=== PATIENT | female | born 1990 | race Caucasian/White ===

== ENCOUNTER 2022-11-17 17:37 | Emergency (ER) | payer MEDICAID, SELFPAY ==
--- NOTE | ~2022-11-17 | XR_ITS ---
EXAMINATION: XR SHOULDER, LEFT CLINICAL INFORMATION: Left shoulder pain COMPARISON: None available. TECHNIQUE: Left shoulder 4 views. AP external rotation, Grashey, scapular Y, and axillary views of the left shoulder. FINDINGS: The bones and soft tissues are normal. No fracture. Glenohumeral and acromioclavicular alignment is anatomic with normal joint space. No abnormal soft tissue calcifications. XR/XR shoulder LT min 2V IMPRESSION: Unremarkable left shoulder radiographs.
--- NOTE | ~2022-11-17 | XR_ITS ---
EXAMINATION: XR CHEST CLINICAL INFORMATION: Chest pain COMPARISON: None available. TECHNIQUE: 2 views of the chest were obtained. FINDINGS: No significant abnormality is noted involving the heart, lungs, mediastinum, bony thorax or soft tissues. Surgical clips are noted in the upper abdomen on the lateral view. XR/XR chest 2V IMPRESSION: No acute pulmonary process.
--- NOTE | 2022-11-17 18:03 | ED.GENADULT ---
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 She reports her pain started 3 days ago. She denies any specific injury. Patient does admit that she has been moving so has been lifting numerous heavy boxes Denies any associated shortness of breath, palpitations, cough. She denies any personal history of cardiac disease She states her pain is a 7/10 and improved with ibuprofen Related Data Previous Rx's Medication Instructions Recorded cyclobenzaprine 10 mg tablet 10 mg PO TID PRN muscle spasm #14 11/17/22 tabs Allergies Allergy/AdvReac Type Severity Reaction Status Date / Time No Known Allergies Allergy Verified 11/17/22 18:10 Review of Systems Constitutional: Constitutional: Reports as per HPI, Denies chills, Denies fatigue, Denies fever(s) and Denies headache(s) ENT: Denies headache(s) Cardiovascular: Cardiovascular: Reports chest pain and Denies dyspnea Respiratory: Respiratory: Denies cough and Denies dyspnea Gastrointestinal: Gastrointestinal: Denies abdominal pain, Denies constipation, Reports nausea and Denies vomiting Genitourinary: Genitourinary: Denies dysuria Musculoskeletal: Musculoskeletal: Reports arthralgias, Denies joint swelling and Denies limited range of motion Neurologic: Denies headache(s) and Denies focal weakness Endocrine: Endocrine: Denies fatigue PMFSH Social History Social History Alcohol intake: never Smoked in Last 30 Days: No Use of substances other than those prescribed or required for medical reasons: No Advance Directives: No Advance Directives Information Provided: No Physical Exam ED Vital Signs: Vital Signs - 24 hr 11/17/22 18:10 11/17/22 19:04 Temperature 97.5 F 99 F Pulse Rate 98 85 Respiratory Rate 18 18 Blood Pressure 144/94 H 114/71 Pulse Oximetry 97 98 Oxygen Delivery Method Room Air BMI result Body Mass Index 38.8 Const General: healthy appearing, comfortable, no acute distress, alert and awake Nutritional Appearance: well nourished Orientation/consciousness: patient oriented x3 HENMT Head: Yes normocephalic and Yes atraumatic Eyes Eyelids: Yes eyelids normal Conjunctivae: conjunctivae normal Sclerae: sclerae normal Corneas: corneas normal Pupils: Equal, round and reactive pupils present EOM: EOMs intact bilaterally Neck Neck: Yes full ROM Chest Chest palpation & inspection: normal inspection of the chest and normal palpation of entire chest wall Resp Effort & Inspection: normal respiratory effort, able to speak in complete sentences and not labored Cardio Rate: regular rate Rhythm: regular rhythm Skin General skin exam: no rashes or lesions noted and elasticity normal Neuro General: patient oriented x3 Cranial nerves: Yes Equal, round and reactive pupils present and Yes Bilaterally intact EOM present Cognition (Neuro): normal cognition Extrem Other: Moving all extremities well without any obvious deformities. Minimal tenderness in the left acromioclavicular joint Course Course Course Narrative: RME performed by Renea Finney PA-C. Patient is a 32 year old assigned female at presenting to the emergency department with left shoulder pain and nausea. Labs ordered. Patient placed back in the waiting room pending room availability and results. Reevaluation(s) Reevaluation #1: Patient's cardiac workup unremarkable. She had a negative troponin despite 3 days of pain. Chest x-ray and x-ray of the left shoulder without acute findings. Will discharge the patient with cyclobenzaprine Medical Decision Making Medical Decision Making [facility] Narrative: 32-year-old female with no risk factors for ACS presents for evaluation of chest pain and shoulder pain. Her pain started after moving heavy boxes. History exam is most consistent musculoskeletal origin. Will get labs, EKG, chest x-ray, x-ray the shoulder. The patient mention nursing staff that she has not had a menstrual cycle in over a month, a serum HCG was added on as well. Differential Diagnosis Chest pain Chest wall pain Costochondritis Calcific tendinitis ACS less likely Lab Data [facility] Lab Attestation statement: I reviewed the patient's lab results. 11/17/22 18:28 11/17/22 18:27 Labs: Lab Results 11/17/22 11/17/22 11/17/22 Range/Units 18:27 18:27 18:28 WBC 11.0 H (4.8-10.8) X10*3/uL RBC 5.27 (4.20-5.50) X10*6/uL Hgb 11.6 L (12.0-16.0) g/dl Hct 37.9 (37.0-47.0) % MCV 71.9 L (80.0-98.0) fL MCH 22.0 L (27.0-33.0) pg MCHC 30.6 L (31.0-35.0) g/dl RDW 18.5 H (11.0-16.0) % Plt Count 353 (160-400) X10*3/uL MPV 9.9 (9.4-12.3) fL Immature Gran % (Auto) 0.3 (0.0-0.4) % Neut % (Auto) 69.0 (45-73) % Lymph % (Auto) 22.7 (20-40) % [place] % (Auto) 6.8 (2-11) % Eos % (Auto) 1.0 (0-4) % Baso % (Auto) 0.2 (0-2) % Lymph # (Auto) 2.5 (1.2-4.9) X10*3/uL [place] # (Auto) 0.8 (0.1-1.2) X10*3/uL Eos # (Auto) 0.1 (0.0-0.4) X10*3/uL Baso # (Auto) 0.0 (0.0-0.2) X10*3/uL Abs Immat Gran (auto) 0.03 (0.00-0.03) X10*3/uL Absolute Neuts (auto) 7.6 (2.0-8.3) x10*3/uL Absolute Nucleated RBC 0.000 (0.0-0.012) X10*3/uL Nucleated RBC % (auto) 0.0 (0.0-0.2) /100WBC Sodium 143 (135-145) mmol/L Potassium 4.0 (3.3-5.1) mmol/L Chloride 106 (96-108) mmol/L Carbon Dioxide 28 (22-29) mmol/L Anion Gap 13 (12-20) BUN 11 (9-16) mg/dL Creatinine 0.76 (0.5-1.4) mg/dL Estim Creat Clear Calc 121.6 Estimated GFR > 60 Random Glucose 90 (60-115) mg/dL Calcium 9.4 (8.4-10.2) mg/dL Magnesium 1.8 (1.6-2.6) mg/dL Total Bilirubin 0.3 (0.0-1.0) mg/dL AST 14 (5-31) U/L ALT 12 (0-31) U/L Alkaline Phosphatase 70 (39-117) U/L Troponin I High Sens (<3.5-17.0) ng/L B-Natriuretic Peptide (<100) pg/mL Total Protein 7.5 (6.5-8.0) g/dL Albumin 4.2 (3.5-5.0) g/dL Beta HCG, Quant < 2 mIU/mL Urine Color Urine Appearance Urine pH (5.0-9.0) Ur Specific [place] (1.005-1.025) Urine Protein (Neg-Trace) mg/dL Urine Glucose (UA) (Negative) mg/dL Urine Ketones (Negative) mg/dL Urine Blood (Negative) Urine Nitrite (Negative) Ur Leukocyte Esterase (Negative) Urine RBC (0-2) /HPF Urine WBC (0-5) /HPF Ur Squamous Epith Cells (0-2) /HPF Urine Bacteria (None Seen) Hyaline Casts (0-2) /LPF 11/17/22 11/17/22 11/17/22 Range/Units 18:28 18:28 18:47 WBC (4.8-10.8) X10*3/uL RBC (4.20-5.50) X10*6/uL Hgb (12.0-16.0) g/dl Hct (37.0-47.0) % MCV (80.0-98.0) fL MCH (27.0-33.0) pg MCHC (31.0-35.0) g/dl RDW (11.0-16.0) % Plt Count (160-400) X10*3/uL MPV (9.4-12.3) fL Immature Gran % (Auto) (0.0-0.4) % Neut % (Auto) (45-73) % Lymph % (Auto) (20-40) % [place] % (Auto) (2-11) % Eos % (Auto) (0-4) % Baso % (Auto) (0-2) % Lymph # (Auto) (1.2-4.9) X10*3/uL [place] # (Auto) (0.1-1.2) X10*3/uL Eos # (Auto) (0.0-0.4) X10*3/uL Baso # (Auto) (0.0-0.2) X10*3/uL Abs Immat Gran (auto) (0.00-0.03) X10*3/uL Absolute Neuts (auto) (2.0-8.3) x10*3/uL Absolute Nucleated RBC (0.0-0.012) X10*3/uL Nucleated RBC % (auto) (0.0-0.2) /100WBC Sodium (135-145) mmol/L Potassium (3.3-5.1) mmol/L Chloride (96-108) mmol/L Carbon Dioxide (22-29) mmol/L Anion Gap (12-20) BUN (9-16) mg/dL Creatinine (0.5-1.4) mg/dL Estim Creat Clear Calc Estimated GFR Random Glucose (60-115) mg/dL Calcium (8.4-10.2) mg/dL Magnesium (1.6-2.6) mg/dL Total Bilirubin (0.0-1.0) mg/dL AST (5-31) U/L ALT (0-31) U/L Alkaline Phosphatase (39-117) U/L Troponin I High Sens < 2.7 (<3.5-17.0) ng/L B-Natriuretic Peptide 18 (<100) pg/mL Total Protein (6.5-8.0) g/dL Albumin (3.5-5.0) g/dL Beta HCG, Quant mIU/mL Urine Color Yellow Urine Appearance Clear Urine pH >= 9.0 (5.0-9.0) Ur Specific [place] 1.025 (1.005-1.025) Urine Protein Trace (Neg-Trace) mg/dL Urine Glucose (UA) Negative (Negative) mg/dL Urine Ketones Trace (Negative) mg/dL Urine Blood Negative (Negative) Urine Nitrite Negative (Negative) Ur Leukocyte Esterase Moderate (2+) H (Negative) Urine RBC 0-2 (0-2) /HPF Urine WBC 21-50 H (0-5) /HPF Ur Squamous Epith Cells 0-2 (0-2) /HPF Urine Bacteria None Seen (None Seen) Hyaline Casts 0-2 (0-2) /LPF Independent Interpretation I performed an independent interpretation of an: Plain X-Ray (Non arthritic left shoulder x-ray) Radiology Impression Discussion of test interpretation with radiology: I have reviewed the radiologist's reading. Discharge Plan Discharge Clinical Impression: Acute pain of left shoulder Patient Disposition: Home, Self-Care Instructions: Shoulder Pain (ED) Additional Instructions: You may continue using ibuprofen for your pain. You may also use cyclobenzaprine to help with pain and muscle spasms This may make you sleepy, do not drink alcohol or drive after taking it Follow-up with your primary doctor Prescriptions: New cyclobenzaprine 10 mg tablet 10 mg PO TID PRN (Reason: muscle spasm) Qty: 14 0RF
[2022-11-17 18:10] VITALS: BP 144/94; PULSE 98; RESP 18; TEMP 36.4; O2SAT 97; BMI 38.8
--- NOTE | 2022-11-17 18:12 | ECG_ITS ---
Test Reason : L SHOULDER+CP Blood Pressure : / mmHG Vent. Rate : 085 BPM Atrial Rate : 085 BPM P-R Int : 116 ms QRS Dur : 078 ms QT Int : 348 ms P-R-T Axes : 048 032 000 degrees QTc Int : 414 ms Normal sinus rhythm Nonspecific T wave abnormality Abnormal ECG No previous ECGs available Referred By: Renea Finney Electronically Signed By:SACHA BREEN MD
[2022-11-17 18:33] LABS: MANUAL DIFF FLAG NO
[2022-11-17 18:34] LABS: Basophils Percent Auto 0.2 % (0-2); Eosinophils Absolute Auto 0.1 X10*3/uL (0.0-0.4); Hematocrit 37.9 % (37.0-47.0); Hemoglobin 11.6 g/dl (12.0-16.0); Imm Gran Abs Auto 0.03 X10*3/uL (0.00-0.03); Imm Gran Pct Auto 0.3 % (0.0-0.4); Lymphocytes Absolute Auto 2.5 X10*3/uL (1.2-4.9); Lymphocytes Percent Auto 22.7 % (20-40); Mean Corpuscular HGB Conc 30.6 g/dl (31.0-35.0); Mean Corpuscular Volume 71.9 fL (80.0-98.0); Mean Platelet Volume 9.9 fL (9.4-12.3); Monocytes Absolute Auto 0.8 X10*3/uL (0.1-1.2); Monocytes Percent Auto 6.8 % (2-11); Neutrophils Absolute Auto 7.6 x10*3/uL (2.0-8.3); Platelet Count 353 X10*3/uL (160-400); Red Blood Count 5.27 X10*6/uL (4.20-5.50); Red Cell Distribution Width 18.5 % (11.0-16.0)
--- NOTE | 2022-11-17 18:42 | PC.NURSE ---
Alert and oriented, mostly bolivian speaking. states x3 left sided chest pain that extended to her entire back. Denies injury or trauma but states she has been moving from one home to another. Also states she has not gotten her period in a few months. Denies chest pain or sob.
[2022-11-17 18:59] LABS: Alanine Aminotransferase 12 U/L (0-31); Albumin Level 4.2 g/dL (3.5-5.0); Alkaline Phosphatase 70 U/L (39-117); Anion Gap 13 (12-20); Aspartate Amino Transferase 14 U/L (5-31); Bilirubin Total 0.3 mg/dL (0.0-1.0); Blood Urea Nitrogen 11 mg/dL (9-16); Calcium 9.4 mg/dL (8.4-10.2); Carbon Dioxide 28 mmol/L (22-29); Chloride 106 mmol/L (96-108); Creatinine Clr Calc Pharmacy 121.6; Estimated Glomerular Filt Rate > 60; Glucose Random 90 mg/dL (60-115); Magnesium 1.8 mg/dL (1.6-2.6); Sodium 143 mmol/L (135-145); Total Protein 7.5 g/dL (6.5-8.0)
[2022-11-17 19:04] VITALS: BP 114/71; PULSE 85; RESP 18; TEMP 37.2; O2SAT 98
[2022-11-17 19:06] LABS: B Type Natriuretic Peptide 18 pg/mL (<100)
[2022-11-17 19:17] LABS: Appearance Urine Clear; Color Urine Yellow; Glucose Urine UA Negative (Negative); Leukocyte Esterase Urine Moderate (2+) (Negative); Nitrite Urine Negative (Negative); PH >= 9.0 (5.0-9.0); Specific Gravity - Urine 1.025 (1.005-1.025); UMIC TRIGGER UACC YES; Urine Blood Negative (Negative); Urine Ketones Trace mg/dL (Negative); Urine Protein Trace mg/dL (Neg-Trace)
[2022-11-17 19:19] LABS: Troponin-I High Sensitivity < 2.7 ng/L (<3.5-17.0)
[2022-11-17 19:19] LABS: HCG Quantitative < 2 mIU/mL
[2022-11-17 20:18] LABS: Bacteria Urine None Seen (None Seen); Hyaline Casts Urine 0-2 /LPF (0-2); Squamous Epithelial Cell Urine 0-2 /HPF (0-2); UACC Culture Trigger YES; WBC Urine 21-50 /HPF (0-5)
[2022-11-17 20:19] LABS: RBC Urine 0-2 /HPF (0-2)
== END 2022-11-17 21:05 | disposition home or self-care (01) ==
PROVIDERS: Physician Assistant Medical; Emergency Provider Emergency Medicine
DX: M25.512 Pain in left shoulder (principal)
CPT/HCPCS: 36415; 71046; 73030; 80053; 81001; 81003; 83735; 83880; 84484; 84702; 85025; 87086; 93005; 99283; 99284

== ENCOUNTER 2023-07-28 11:45 | Emergency (ER) | payer MEDICAID, SELFPAY ==
--- NOTE | 2023-07-28 | ECG_ITS ---
Test Reason : CP Blood Pressure : / mmHG Vent. Rate : 077 BPM Atrial Rate : 077 BPM P-R Int : 132 ms QRS Dur : 090 ms QT Int : 360 ms P-R-T Axes : 038 027 -02 degrees QTc Int : 407 ms Normal sinus rhythm Nonspecific T wave abnormality Abnormal ECG When compared with ECG of 17-NOV-2022 18:18, No significant change was found Referred By: Generic ED Physician Electronically Signed By:Donnell Kilpatrick
--- NOTE | ~2023-07-28 | XR_ITS ---
EXAMINATION: XR CHEST CLINICAL INFORMATION: Left-sided chest pain COMPARISON: None available. TECHNIQUE: Frontal view of the chest was obtained. FINDINGS: No significant abnormality is noted involving the heart, lungs, mediastinum, bony thorax or soft tissues. XR/XR chest 1V IMPRESSION: Unremarkable chest examination.
[2023-07-28 11:54] VITALS: BP 141/82; PULSE 89; RESP 16; TEMP 36.6; O2SAT 97; BMI 41.2
--- NOTE | 2023-07-28 12:03 | ED_ITS ---
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 States pain has been present for 2 days and is worse with movement, reports limited range of motion. She denies any weakness, numbness or tingling to her left arm. Has used [id number] medications with little relief. 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 Seen here for similar complaint in November of 2022. She is not on oral contraceptives. Denies cough or hemoptysis. Denies recent calf pain or swelling. Denies personal or family history of PE/DVT. MD complaint: other (left shoulder pain) Onset (ago): day(s) Timing of current episode: constant Prior episodes: Yes Pain location: left chest Pain radiation: left arm and left shoulder Severity: severe Quality: aching Relieving factors: nothing Exacerbating factors: movement Related Data Previous Rx's Medication Instructions Recorded cyclobenzaprine 10 mg tablet 10 mg PO TID PRN muscle spasm #14 11/17/22 tabs cyclobenzaprine 5 mg tablet 5 mg PO TID PRN muscle spasm #10 07/28/23 tabs diclofenac sodium 1 % topical gel 2 g topical QID #100 grams 07/28/23 Allergies Allergy/AdvReac Type Severity Reaction Status Date / Time No Known Allergies Allergy Verified 07/28/23 11:54 Review of Systems 2 Review of Systems: As per HPI. Yes all other systems are reviewed and are negative Constitutional: Constitutional: Reports as per HPI [facility] Social History Social History Alcohol intake: never Advance Directives: No Advance Directives Information Provided: No Physical Exam 2 Vital Signs: Vital Signs: Last Vital Signs Temp 97.8 F 07/28/23 11:54 Pulse 89 07/28/23 11:54 Resp 16 07/28/23 11:54 BP 141/82 H 07/28/23 11:54 Pulse Ox 97 07/28/23 11:54 O2 Del Method Room Air 07/28/23 11:54 BMI result Body Mass Index 41.2 Vital signs have been reviewed and appear to be correct. Blood pressure normal. Heart rate normal. Respiratory rate normal. Temperature normal. Oxygen saturation normal. Const: General: cooperative, healthy appearing and no acute distress O rientation/consciousness: oriented to person, oriented to place, oriented to time and patient oriented x3 Limitations: no limitations HEENT: Head: Yes normocephalic and Yes atraumatic Ears: external ears normal General nose exam: Normal external nose present Face and sinus: Yes face symmetric Mouth: oropharynx normal and moist mucous membranes Throat: Yes uvula midline Eyes: Pupils: Equal, round and reactive pupils present Neck: Neck: Yes normal visual inspection and Yes supple Resp: Effort & Inspection: normal respiratory effort and able to speak in complete sentences Auscultation: clear to auscultation bilaterally Cardio: Rate: regular rate Rhythm: regular rhythm Heart sounds: S1 normal heart sound present and S2 normal heart sound present GI: Palpation (GI): Soft to palpation and nontender Auscultation: n ormoactive bowel sounds : General: Yes no CVA tenderness Back/Spine/Pelvis: Back: no CVA tenderness Cervical Spine: normal cervical lordosis, cervical ROM normal, cervical muscular tenderness (left lateral), No Cervical spine tenderness and No step off deformity Skin: General skin exam: elasticity normal and turgor normal Neuro: General: oriented to person, oriented to place, oriented to time, patient oriented x3, moves all extremities, no focal motor deficits and CN's II- XI intact bilaterally Cranial nerves: Yes Equal, round and reactive pupils present Cognition (Neuro): normal cognition Extrem: General: Yes full ROM, Yes no pedal edema and Yes no calf tenderness Left upper extremity: shoulder/upper arm Details: inspection abnormal, axillary nerve sensory function normal and abnormal ROM Details: pain with active ROM Details: in ABduction and external rotation-; no tenderness and hand Details: vascular exam Details: radial pulse present and normal capillary refill Psych: Mental Status: mental status grossly normal Affect: normal affect Thought process: Normal thought process present Course Course Course Narrative: RME; 32 old female presents to ED for left-sided chest pain radiating to shoulder that is worse on movement for the past 2 days. Patient denies any shortness of breath, leg swelling, calf pain, coughing up blood, EKG labs chest x-ray ordered. Medical Decision Making Medical Decision Making [facility] Narrative: Patient is a 32-year-old [place]wanan-speaking female presenting to the emergency department with complaint of left shoulder pain which begins on left anterior chest and radiates up and over shoulder to upper back. On exam patient is awake, A+Ox3, VS WNL, afebrile, normal neurological exam without focal deficits, physical exam findings as above. Given reported symptoms and physical exam findings, initial differential includes shoulder strain, cervical radiculopathy. Less likely ACS. Unlikely PE, Wells negative. Labs notable for negative troponin, labs otherwise unremarkable. EKG shows NSR. X-ray chest shows no evidence of pneumonia. My interpretation is in agreement with the radiologist's interpretation. Given reproducible nature and increased pain with movement, feel pain is musculoskeletal, will prescribe cyclobenzaprine and diclofenac gel, advised patient to follow-up with her PCP given that this is her 2nd episode of similar symptoms she may require physical therapy. Return precautions discussed at bedside. Patient verbalized understanding of and agreement with plan. Differential Diagnosis Differential Diagnoses: The differential diagnosis associated with the presentation includes As per MDM. Admission/Observation Consideration of admission/observation: Escalation of care including admission/observation considered Lab Data [facility] Lab Attestation statement: I reviewed the patient's lab results. As per MDM. 07/28/23 12:11 07/28/23 12:11 Labs: Lab Results 07/28/23 Range/Units 12:11 WBC 8.4 (4.8-10.8) X10*3/uL RBC 5.14 (4.20-5.50) X10*6/uL Hgb 13.0 (12.0-16.0) g/dl Hct 40.3 (37.0-47.0) % MCV 78.4 L (80.0-98.0) fL MCH 25.3 L (27.0-33.0) pg MCHC 32.3 (31.0-35.0) g/dl RDW 13.4 (11.0-16.0) % Plt Count 299 (160-400) X10*3/uL MPV 9.9 (9.4-12.3) fL Immature Gran % (Auto) 0.4 (0.0-0.4) % Neut % (Auto) 68.1 (45-73) % Lymph % (Auto) 25.2 (20-40) % [place] % (Auto) 5.4 (2-11) % Eos % (Auto) 0.7 (0-4) % Baso % (Auto) 0.2 (0-2) % Lymph # (Auto) 2.1 (1.2-4.9) X10*3/uL [place] # (Auto) 0.5 (0.1-1.2) X10*3/uL Eos # (Auto) 0.1 (0.0-0.4) X10*3/uL Baso # (Auto) 0.0 (0.0-0.2) X10*3/uL Abs Immat Gran (auto) 0.03 (0.00-0.03) X10*3/uL Absolute Neuts (auto) 5.7 (2.0-8.3) x10*3/uL Absolute Nucleated RBC 0.000 (0.0-0.012) X10*3/uL Nucleated RBC % (auto) 0.0 (0.0-0.2) /100WBC PT 12.0 (11.1-13.3) SEC INR 1.0 (0.9-1.1) APTT 34.3 (26.0-36.8) SEC Sodium 142 (135-145) mmol/L Potassium 3.8 (3.3-5.1) mmol/L Chloride 105 (96-108) mmol/L Carbon Dioxide 27 (22-29) mmol/L Anion Gap 14 (12-20) BUN 9 (9-16) mg/dL Creatinine 0.70 (0.5-1.4) mg/dL Estim Creat Clear Calc 141.6 Estimated GFR > 60 Random Glucose 103 (60-115) mg/dL Calcium 9.5 (8.4-10.2) mg/dL Total Bilirubin 0.4 (0.0-1.0) mg/dL AST 11 (5-31) U/L ALT 13 (0-31) U/L Alkaline Phosphatase 64 (39-117) U/L Troponin I High Sens < 2.7 (<3.5-17.0) ng/L B-Natriuretic Peptide 13 (<100) pg/mL Total Protein 7.5 (6.5-8.0) g/dL Albumin 4.2 (3.5-5.0) g/dL Independent Interpretation I performed an independent interpretation of an: EKG (normal sinus rhythm, rate 77bpm, normal PA interval and QTc, no change from prior) and Plain X-Ray Interpretation: No evidence of pneumonia on chest x-ray Radiology Impression Discussion of test interpretation with radiology: I have reviewed the radiologist's reading. Radiologist Impression: XR/XR chest 1V IMPRESSION: Unremarkable chest examination. External Record Review External record reviewed: Inpatient record, Office record and Outpatient record Prescription Management I considered prescription management with: Pain Medication Discharge Plan Discharge Clinical Impression: Left shoulder strain Patient Disposition: Home, Self-Care Instructions: Muscle Strain (DC) Additional Instructions: You were evaluated in the emergency department today for left shoulder pain which is likely musculoskeletal. You are being prescribed a muscle relaxer as well as a topical gel which you can use for your shoulder discomfort. Please use these medications as prescribed. Please follow-up with your primary care provider, as you may require physical therapy to improve her symptoms. Return to the emergency department if you develop new weakness, numbness, tingling to your arm, chest pain, shortness of breath, palpitations or any other concerning symptoms. Prescriptions: New cyclobenzaprine 5 mg tablet 5 mg PO TID PRN (Reason: muscle spasm) Qty: 10 0RF diclofenac sodium 1 % gel 2 g topical QID Qty: 100 0RF Rx Instructions: apply to left shoulder No Action cyclobenzaprine 10 mg tablet 10 mg PO TID PRN (Reason: muscle spasm) Qty: 14 0RF
[2023-07-28 12:15] LABS: MANUAL DIFF FLAG NO
[2023-07-28 12:16] LABS: Basophils Percent Auto 0.2 % (0-2); Eosinophils Absolute Auto 0.1 X10*3/uL (0.0-0.4); Eosinophils Percent Auto 0.7 % (0-4); Hematocrit 40.3 % (37.0-47.0); Imm Gran Abs Auto 0.03 X10*3/uL (0.00-0.03); Imm Gran Pct Auto 0.4 % (0.0-0.4); Lymphocytes Absolute Auto 2.1 X10*3/uL (1.2-4.9); Lymphocytes Percent Auto 25.2 % (20-40); Mean Corpuscular HGB Conc 32.3 g/dl (31.0-35.0); Mean Corpuscular Hemoglobin 25.3 pg (27.0-33.0); Mean Corpuscular Volume 78.4 fL (80.0-98.0); Mean Platelet Volume 9.9 fL (9.4-12.3); Monocytes Absolute Auto 0.5 X10*3/uL (0.1-1.2); Monocytes Percent Auto 5.4 % (2-11); Neutrophils Absolute Auto 5.7 x10*3/uL (2.0-8.3); Neutrophils Percent Auto 68.1 % (45-73); Platelet Count 299 X10*3/uL (160-400); Red Blood Count 5.14 X10*6/uL (4.20-5.50); Red Cell Distribution Width 13.4 % (11.0-16.0); White Blood Count 8.4 X10*3/uL (4.8-10.8)
[2023-07-28 12:25] LABS: Partial Thromboplastin Time 34.3 SEC (26.0-36.8)
[2023-07-28 12:30] LABS: Alanine Aminotransferase 13 U/L (0-31); Albumin Level 4.2 g/dL (3.5-5.0); Alkaline Phosphatase 64 U/L (39-117); Anion Gap 14 (12-20); Aspartate Amino Transferase 11 U/L (5-31); Bilirubin Total 0.4 mg/dL (0.0-1.0); Blood Urea Nitrogen 9 mg/dL (9-16); Calcium 9.5 mg/dL (8.4-10.2); Carbon Dioxide 27 mmol/L (22-29); Chloride 105 mmol/L (96-108); Creatinine Clr Calc Pharmacy 141.6; Estimated Glomerular Filt Rate > 60; Glucose Random 103 mg/dL (60-115); Potassium 3.8 mmol/L (3.3-5.1); Sodium 142 mmol/L (135-145); Total Protein 7.5 g/dL (6.5-8.0)
[2023-07-28 12:35] LABS: B Type Natriuretic Peptide 13 pg/mL (<100)
[2023-07-28 12:37] LABS: Troponin-I High Sensitivity < 2.7 ng/L (<3.5-17.0)
[2023-07-28 15:15] VITALS: BP 138/78; PULSE 82; RESP 16; TEMP 36.6; O2SAT 97
[2023-07-28] MEDS: Cyclobenzaprine HCl 10 MG TABLET PO (15:27)
--- NOTE | 2023-07-28 15:30 | PC.NURSE ---
pt a&ox3, c/o lt arm pain with movement, pt medicated per order and will discharge home with muscle relaxers
== END 2023-07-28 15:57 | disposition home or self-care (01) ==
PROVIDERS: Physician Assistant; Emergency Provider Emergency Medicine Emergency Medical Services
DX: S46.912A Strain of unspecified muscle, fascia and tendon at shoulder and upper arm level, left arm, initial encounter (principal); R07.89 Other chest pain; M25.512 Pain in left shoulder; M54.50 Low back pain, unspecified; X50.0XXA Overexertion from strenuous movement or load, initial encounter; Y93.9 Activity, unspecified; Y92.9 Unspecified place or not applicable; Y99.0 Civilian activity done for income or pay; Z79.899 Other long term (current) drug therapy
CPT/HCPCS: 36415; 71045; 80053; 83880; 84484; 85025; 85610; 85730; 93005; 99283; 99284

== ENCOUNTER → 2023-07-28 11:50 | Outpatient (BNV) | payer MEDICAID, SELFPAY | PROVIDERS: Emergency Provider Emergency Medicine Emergency Medical Services; Visit Provider Internal Medicine Cardiovascular Disease | DX: R94.31 Abnormal electrocardiogram [ECG] [EKG] (principal) | CPT/HCPCS: 93010 ==

== ENCOUNTER 2023-10-09 09:53 | Outpatient (REF) | payer SELFPAY ==
[2023-10-09 11:36] LABS: MANUAL DIFF FLAG NO
[2023-10-09 11:48] LABS: Basophils Percent Auto 0.3 % (0-2); Eosinophils Percent Auto 0.3 % (0-4); Hematocrit 41.8 % (37.0-47.0); Hemoglobin 13.3 g/dl (12.0-16.0); Imm Gran Abs Auto 0.05 X10*3/uL (0.00-0.03); Imm Gran Pct Auto 0.5 % (0.0-0.4); Lymphocytes Absolute Auto 1.8 X10*3/uL (1.2-4.9); Lymphocytes Percent Auto 18.6 % (20-40); Mean Corpuscular HGB Conc 31.8 g/dl (31.0-35.0); Mean Corpuscular Hemoglobin 25.7 pg (27.0-33.0); Mean Corpuscular Volume 80.7 fL (80.0-98.0); Mean Platelet Volume 10.7 fL (9.4-12.3); Monocytes Absolute Auto 0.6 X10*3/uL (0.1-1.2); Monocytes Percent Auto 6.1 % (2-11); Neutrophils Absolute Auto 7.3 x10*3/uL (2.0-8.3); Neutrophils Percent Auto 74.2 % (45-73); Platelet Count 292 X10*3/uL (160-400); Red Blood Count 5.18 X10*6/uL (4.20-5.50); Red Cell Distribution Width 13.4 % (11.0-16.0); White Blood Count 9.9 X10*3/uL (4.8-10.8)
[2023-10-11 21:09] LABS: C. trachomatis RNA TMA NOT DETECTED (NOT DETECTED); N. gonorrhoeae RNA TMA NOT DETECTED (NOT DETECTED)
== END 2023-10-09 09:54 | disposition home or self-care (01) ==
LOC: HO.HHCL 09:53
PROVIDERS: Visit Provider Internal Medicine Geriatric Medicine
DX: N93.8 Other specified abnormal uterine and vaginal bleeding (principal)
CPT/HCPCS: 36415; 81513; 84443; 85025; 87491; 87591

== ENCOUNTER 2023-11-18 15:59 | Outpatient (REF) | payer MEDICAID, SELFPAY ==
[2023-11-29 04:44] LABS: HPV mRNA E6/E7 rflx Not Detected (Not Detected)
[2023-11-30 10:54] LABS: C. trachomatis RNA TMA NOT DETECTED (NOT DETECTED); N. gonorrhoeae RNA TMA NOT DETECTED (NOT DETECTED)
[2023-11-30 12:28] LABS: Trichomonas (NAAT) NOT DETECTED (NOT DETECTED)
== END 2023-11-18 16:00 | disposition home or self-care (01) ==
LOC: HO.HHCLNP 15:59
PROVIDERS: Visit Provider Advanced Practice Midwife
DX: N93.9 Abnormal uterine and vaginal bleeding, unspecified (principal); Z12.4 Encounter for screening for malignant neoplasm of cervix; Z11.3 Encounter for screening for infections with a predominantly sexual mode of transmission
CPT/HCPCS: 87491; 87591; 87624; 87661; 88142

== ENCOUNTER 2023-12-12 11:11 | Outpatient (REF) | payer MEDICAID, SELFPAY ==
--- NOTE | ~2023-12-12 | US_ITS ---
EXAMINATION: ULTRASOUND PELVIC, COMPLETE CLINICAL INFORMATION: Abnormal uterine bleeding. COMPARISON: None. TECHNIQUE: Pelvic ultrasound was performed using transvaginal and transabdominal technique without spectral doppler. FINDINGS: Uterus is retroverted. The uterus is lobular. The uterus measures 9.1 x 6.5 x 6.8 cm. There is a 3.7 cm intramural fibroid in the right corpus/body. A regular homogeneous endometrium is identified measuring 1.0 cm in thickness. The right ovary is enlarged measuring 12.2 mL. String of pearls appearance. The left ovary is enlarged measuring 12.6 mL. String of pearls appearance. There is no pelvic free fluid. US/US pelvic and transvaginal IMPRESSION: 3.7 cm uterine fibroid. Enlarged ovaries with string of pearls appearance consistent with PCO morphology. Correlate clinically for PCOS.
== END 2023-12-12 11:12 | disposition home or self-care (01) ==
LOC: HO.US 11:11
PROVIDERS: Visit Provider Advanced Practice Midwife
DX: N93.9 Abnormal uterine and vaginal bleeding, unspecified (principal)
CPT/HCPCS: 76830; 76856

== ENCOUNTER 2024-01-06 09:00 | Outpatient (AMB) | payer MEDICAID, SELFPAY ==
--- NOTE | 2024-01-06 09:13 | MHC.OFFVIS ---
Vital Signs 01/06/24 09:18 Height 5 ft 4 in Weight 241 lb BMI 41.4 BP 130/82 Intake Visit Reasons: AUB Dog Obedience Instructor Required: Yes Dog Obedience Instructor Language: Risk Assessor Services: Dog Obedience Instructor Present (in person) Dog Obedience Instructor Name: Luisa Merritt Information Interpreted: non-clinical & clinical Certified Nurse Midwife: Certified Nurse Midwife Present (Luisa HUYNH) Accompanied by: Self / Same As Patient Allergies No Known Allergies Allergy (Verified 01/06/24 09:22) HPI Comments Details: Presenting with continuous abnormal uterine bleeding last 7 months associated with the recent weight gain of 35 lb and facial minimal hair growth. The following workup was done: Last few weeks H&H was 13.31/41.8, TSH within normal, GC/CT negative Last co testing in 12/08 was negative Last pelvic ultrasound done in 12/08 showed the following: Uterus is retroverted. The uterus is lobular. The uterus measures 9.1 x 6.5 x 6.8 cm. There is a 3.7 cm intramural fibroid in the right corpus/body. A regular homogeneous endometrium is identified measuring 1.0 cm in thickness. The right ovary is enlarged measuring 12.2 mL. String of pearls appearance. The left ovary is enlarged measuring 12.6 mL. String of pearls appearance. There is no pelvic free fluid. [facility] Medical History (Updated 01/06/24 @ 09:47 by Frank Medrano MD) Asthma Surgical History (Updated 01/06/24 @ 09:24 by Luisa Merritt CMA) Hx of cholecystectomy Family History (Updated 01/06/24 @ 09:26 by Luisa Merritt CMA) Father Asthma Mother Asthma Maternal Grandmother Diabetes HTN (hypertension) Maternal Grandfather Diabetes HTN (hypertension) Social History (System 10/10/23 @ 11:10 by Carrie Woods) Household Members: Children Housing: Apartment Alcohol intake: never Patient Tobacco Use Status: Never used Tobacco Current occupational status: unemployed Sexual orientation: Straight/Heterosexual Gender identity: Female Review of Systems Const All systems reviewed & are unremarkable except as noted in HPI and below Card Reports as per HPI Resp Reports as per HPI GI Reports as per HPI and Reports no additional complaints Reports as per HPI Physical Exam Vital Signs: BMI result Body Mass Index 41.4 Const General: cooperative, healthy appearing and comfortable Chest Chest palpation & inspection: normal inspection of the chest and normal palpation of entire chest wall Breast/axilla inspection: normal inspection of the breasts and normal inspection of the axillae Breast/axilla palpation: normal palpation of the breasts, normal palpation of the axillae and no axillary lymphadenopathy Resp Effort & Inspection: normal respiratory effort Auscultation: clear to auscultation bilaterally Percussion: percussion normal Cardio Palpation: normal PMI Rate: regular rate Rhythm: regular rhythm Heart sounds: no murmurs and no rubs Peripheral pulses: Peripheral pulses 2+ throughout GI Inspection: Yes normal to inspection Palpation (GI): Soft to palpation, nontender, no guarding, not rigid and No hepatosplenomegaly present Percussion: Yes normal to percussion Auscultation: normal bowel sounds Rectal Exam - Female: deferred General: Yes bladder normal to palpation External Female Exam: No lesion Speculum Exam - Vagina: normal appearance of the vagina, normal palpation, normal vaginal discharge and not erythematous Speculum Exam - Cervix: normal appearance of the cervix and normal palpation Bimanual exam- vagina & uterus: normal bimanual exam, normal palpation, uterine size normal, bladder normal to palpation, consistency normal and normal palpation Bimanual Exam- Adnexa, other: normal adnexae, no masses and no tenderness Results AMB Test Urine AMB Test Urine Negative Last Edit by Luisa Merritt CMA on 01/06/24 09:31 Assessment & Plan Assessment & Plan (1) Abnormal uterine bleeding (AUB): Comment: With hirsutism Code(s): N93.9 - Abnormal uterine and vaginal bleeding, unspecified Category: Medical Plan: Co testing done, GC and chlamydia taken CBC, TSH, and pelvic ultrasound recently done. Since the patient has features on ultrasound suspicious of PCOS and gives history of recent facial hair growth will order androgen level 17 hydroxyprogesterone, total and free testosterone, prolactin and schedule endometrial biopsy to rule out endometrial pathology including endometrial hyperplasia or malignancy. All questions answered and the patient verbalized understanding. Instructed the patient to schedule an appointment for an endometrial biopsy in 2 weeks. Orders: Orders Testosterone, Free/Total Today N93.9 - Abnormal uterine and vaginal bleeding, unspecified AMB HCG Urine Test Today Z32.02 - Encounter for test, result negative 17 Hydroxyprogesterone Today N93.9 - Abnormal uterine and vaginal bleeding, unspecified Medications: Discontinued cyclobenzaprine Discontinued Reason: Patient Completed Course 10 mg PO TID PRN 14 tabs 0RF muscle spasm cyclobenzaprine Discontinued Reason: Patient Completed Course 5 mg PO TID PRN 10 tabs 0RF muscle spasm diclofenac sodium 1% apply to left shoulder Discontinued Reason: Patient no longer taking 2 grams topical QID 100 grams 0RF Coding Level of Care Code New Pt Level 3 (11557) Diagnoses Abnormal uterine bleeding (AUB) N93.9
[2024-01-06 09:18] VITALS: BP 130/82; BMI 41.4
== END 2024-01-06 09:52 | disposition home or self-care (01) ==
PROVIDERS: Referring Provider Obstetrics & Gynecology; Visit Provider Obstetrics & Gynecology
DX: Z32.02 Encounter for pregnancy test, result negative (principal); N93.9 Abnormal uterine and vaginal bleeding, unspecified
CPT/HCPCS: 99203

== ENCOUNTER 2024-01-06 09:00 | Outpatient (REF) | payer MEDICAID, SELFPAY ==
[2024-01-11 20:38] LABS: Testosterone, Free 10.8 pg/mL (0.1-6.4); Testosterone, Total 50 ng/dL (2-45)
== END 2024-01-06 09:01 | disposition home or self-care (01) ==
LOC: HO.LAB 09:00
PROVIDERS: Visit Provider Obstetrics & Gynecology
DX: Z32.02 Encounter for pregnancy test, result negative (principal); N93.9 Abnormal uterine and vaginal bleeding, unspecified
CPT/HCPCS: 36415; 81025; 83498; 84402; 84403; 99202

== ENCOUNTER 2024-02-18 07:50 | Outpatient (AMB) | payer MEDICAID, SELFPAY ==
[2024-02-18 07:58] VITALS: BMI 41.2
--- NOTE | 2024-02-18 07:58 | MHC.OFFVIS ---
Vital Signs 02/18/24 07:58 Height 5 ft 4 in Weight 240 lb 4.862 oz BMI 41.2 Intake Visit Reasons: Endo BX Allergies No Known Allergies Allergy (Verified 01/06/24 09:22) HPI Comments Details: Presenting for [facility] Medical History (Updated 01/06/24 @ 09:47 by Frank Medrano MD) Asthma Surgical History Hx of cholecystectomy Family History Father Asthma Mother Asthma Maternal Grandmother Diabetes HTN (hypertension) Maternal Grandfather Diabetes HTN (hypertension) Social History (Updated 01/06/24 @ 09:26 by Luisa Merritt CMA) Household Members: Children Housing: Apartment Alcohol intake: never Patient Tobacco Use Status: Never used Tobacco Current occupational status: unemployed Sexual orientation: Straight/Heterosexual Gender identity: Female Review of Systems Const All systems reviewed & are unremarkable except as noted in HPI and below Reports as per HPI and Reports no additional complaints GI Reports no additional complaints Reports no additional complaints Physical Exam Vital Signs: BMI result Body Mass Index 41.2 Office Procedures Endometrial Biopsy Details: The patient was counseled regarding the indication and benefits of endometrial sampling to rule out endometrial pathology including not limited to endometrial hyperplasia or endometrial cancer and others; The alternatives (Either do nothing vs. hysteroscopy D&C) & the risks were discussed with the patient including but not limited: pain, uterine perforation, bleeding, infection, possible injury to bladder, bowel, ureter, possible need for blood transfusion with all its possible risks. The patient verbalized understanding all questions answered and signed consent. Urine test done in the office was negative The patient was placed into the dorsal lithotomy position; a speculum was inserted in the vagina. Using aseptic technique for the procedure, the cervix was cleansed with Betadine. The anterior lip of the cervix was grasped with a single tooth tenaculum. The uterus was sounded to 7 cm with a 4 mm Pipelle was used. Tissues samples were obtained and placed in formalin, in a patient labeled container and sent to the pathology department. At the end of the procedure, there was minimal bleeding noted The patient tolerated the procedure well and was discharged in good condition with the following instructions: Nothing in the vagina until the bleeding stops. No sex until the bleeding stops, to call if any of the following occurs: fever (>100.4), flu-like symptoms, abdominal pain, heavy bleeding, four smelling vaginal discharge. The patient was instructed to schedule a Follow up appointment in 2 weeks to discuss pathology results of the biopsy and treatment options. This note was generated with a voice recognition program. Some errors may have been overlooked during the review of this note. Sometimes these errors may affect the content or meaning of a given sentence. 49816-Ylpaugloflv Biopsy Assessment & Plan Assessment & Plan (1) Abnormal uterine bleeding (AUB): Comment: With hirsutism Code(s): N93.9 - Abnormal uterine and vaginal bleeding, unspecified Category: Medical Plan: EMB done, see procedure Orders: Orders AMB Endometrial Biopsy Today N93.9 - Abnormal uterine and vaginal bleeding, unspecified Coding Level of Care Code Procedure Only Diagnoses Abnormal uterine bleeding (AUB) N93.9 CPT Codes Endometrial Biopsy - CPT: 30208-Osnxazluxaa Biopsy ([id number])
== END 2024-02-18 08:39 | disposition home or self-care (01) ==
PROVIDERS: Visit Provider Obstetrics & Gynecology
DX: N93.9 Abnormal uterine and vaginal bleeding, unspecified (principal)
CPT/HCPCS: 58100

== ENCOUNTER 2024-02-18 07:50 | Outpatient (REF) | payer MEDICAID, SELFPAY | END 2024-02-18 07:51 | disposition home or self-care (01) | LOC: HO.LNP 07:50 | PROVIDERS: Visit Provider Obstetrics & Gynecology | DX: N93.9 Abnormal uterine and vaginal bleeding, unspecified (principal); R89.7 Abnormal histological findings in specimens from other organs, systems and tissues | CPT/HCPCS: 58100; 88305 ==

== ENCOUNTER 2024-03-10 09:31 | Outpatient (AMB) | payer MEDICAID, SELFPAY ==
[2024-03-10 09:34] VITALS: BMI 41.2
--- NOTE | 2024-03-10 09:34 | A.OFFVIS_ITS ---
Vital Signs 03/10/24 09:34 Height 5 ft 4 in Weight 240 lb 4.862 oz BMI 41.2 Intake Visit Reasons: EMB Results Funds Transfer Clerk Required: Yes Funds Transfer Clerk Language: Braddisher Services: Funds Transfer Clerk Present (in person) Funds Transfer Clerk Name: Luisa HUYNH Information Interpreted: non-clinical & clinical Learning Development Specialist: Learning Development Specialist Present Accompanied by: Self / Same As Patient Allergies No Known Allergies Allergy (Verified 03/10/24 09:35) Is last menstrual period known: Yes Last menstrual period: 04/14/20 Post menopausal: No Patient : No Do you need a note to return to daycare/school/sports/work: Yes (for surgery on saturday) HPI Comments Details: The patient is presenting after endometrial biopsy. The patient has no complaints, no vaginal bleeding, no feverishness chills or abdominal pain. The endometrial biopsy pathology report showed the following: Few fragments of endometrial tissue with glandular crowding and focal atypia; background disordered proliferative endometrium. Multiple additional levels examined. Comment: Recommend curettage for further characterization, as clinically appropriate [facility] Medical History Asthma Surgical History Hx of cholecystectomy Family History Father Asthma Mother Asthma Maternal Grandmother Diabetes HTN (hypertension) Maternal Grandfather Diabetes HTN (hypertension) Social History Household Members: Children Housing: Apartment Alcohol intake: never Patient Tobacco Use Status: Never used Tobacco Current occupational status: unemployed Sexual orientation: Straight/Heterosexual Gender identity: Female Female Reproductive History Menstrual Date of last menstrual period: 04/14/20 Total pregnancies: 2 Full term: 2 Review of Systems Const All systems reviewed & are unremarkable except as noted in HPI and below Reports as per HPI and Reports no additional complaints Card Reports as per HPI and Reports no additional complaints Resp Reports as per HPI and Reports no additional complaints GI Reports no additional complaints Reports no additional complaints Physical Exam Vital Signs: BMI result Body Mass Index 41.2 Const General: cooperative, healthy appearing and comfortable Resp Effort & Inspection: normal respiratory effort Auscultation: clear to auscultation bilaterally Percussion: percussion normal Cardio Palpation: normal PMI Rate: regular rate Rhythm: regular rhythm Heart sounds: no murmurs and no rubs Peripheral pulses: Peripheral pulses 2+ throughout GI Inspection: Yes normal to inspection Palpation (GI): Soft to palpation, nontender, no guarding, not rigid and No hepatosplenomegaly present Percussion: Yes normal to percussion Auscultation: normal bowel sounds Rectal Exam - Female: deferred Assessment & Plan Assessment & Plan (1) Abnormal uterine bleeding (AUB): Comment: glandular crowding and focal atypia on emb Code(s): N93.9 - Abnormal uterine and vaginal bleeding, unspecified Category: Medical Plan: Discussed with the patient the results the pathology showing glandular crowding with focal atypia, recommended hysteroscopy D&C possible polypectomy myomectomy to rule out further endometrial pathology including endometrialhyperplasia and/or malignancy. Discussed with the patient the procedure , all benefits and risks including but not limited to inability to complete the procedure , insufficient endometrial tissue for a complete evaluation of the endometrial cavity , bleeding, infection, possible need for blood transfusion with all its risk ( HIV,syphilis, Hepatitis, anaphylaxis shock, others..), injury to bladder, rectum, possible need for laparoscopy/laparotomy or hysterectomy. The patient verbalized understanding and signed the consent. Instructions given the patient to stay NPO after midnight the day prior to the procedure and to take only the specific medication (s) discussed the morning of the surgical procedure and to schedule a 2 week postoperative appointment Coding Level of Care Code Est Pt Level 3 (84189) Diagnoses Abnormal uterine bleeding (AUB) N93.9
== END 2024-03-10 09:50 | disposition home or self-care (01) ==
PROVIDERS: Visit Provider Obstetrics & Gynecology
DX: N93.9 Abnormal uterine and vaginal bleeding, unspecified (principal)
CPT/HCPCS: 99213

== ENCOUNTER → 2024-03-10 09:31 | Outpatient (BNVA) | payer MEDICAID, SELFPAY | PROVIDERS: Visit Provider Obstetrics & Gynecology | DX: N93.9 Abnormal uterine and vaginal bleeding, unspecified (principal) | CPT/HCPCS: 99212 ==

== ENCOUNTER 2024-03-13 10:57 | Day surgery (SDC) | payer MEDICAID, SELFPAY ==
--- NOTE | 2024-03-13 11:45 | HO.ANESPROP2 ---
Documented by User: Sonya Chaudhari NP 03/12/24 14:44 HPI - Anesthesia Eval Consult details Narrative: 33yo F for D&C Hysteroscopy,possible myomectomy,possible polypectomy PMFSH Active Problems Active Problems: All Active Problems Abnormal uterine bleeding (AUB) (Acute) Past Medical History Medical History Asthma Family History Family History Father Asthma Mother Asthma Maternal Grandmother Diabetes HTN (hypertension) Maternal Grandfather Diabetes HTN (hypertension) Surgical History Surgical History Hx of cholecystectomy Social History Social History Household Members: Children Housing: Apartment Alcohol intake: never Patient Tobacco Use Status: Never used Tobacco Advance Directives: No Advance Directives Information Provided: Yes Current occupational status: unemployed Sexual orientation: Straight/Heterosexual Gender identity: Female Meds Allergies Allergy/AdvReac Type Severity Reaction Status Date / Time No Known Allergies Allergy Verified 03/13/24 11:40 Home Medications ?Medication ?Instructions ?Recorded ?Confirmed ?Last Taken ?Type ferrous sulfate 325 mg (65 mg 325 mg PO DAILY 01/06/24 03/13/24 03/12/24 History iron) tablet (Feosol) Assessment and Plan Assessment Anesthesia Assessment: Chart Reviewed Documented by User: Lesly Gotti DO 03/13/24 11:58 PMFSH Past Medical History Medical History Asthma Family History Family History Father Asthma Mother Asthma Maternal Grandmother Diabetes HTN (hypertension) Maternal Grandfather Diabetes HTN (hypertension) Family history of problems with anesthesia: No Surgical History Surgical History Hx of cholecystectomy History of Problems with Anesthesia: No Social History Social History Household Members: Children Housing: Apartment Alcohol intake: never Patient Tobacco Use Status: Never used Tobacco Advance Directives: No Advance Directives Information Provided: Yes Current occupational status: unemployed Sexual orientation: Straight/Heterosexual Gender identity: Female Meds Allergies Allergy/AdvReac Type Severity Reaction Status Date / Time No Known Allergies Allergy Verified 03/13/24 11:40 Home Medications ?Medication ?Instructions ?Recorded ?Confirmed ?Last Taken ?Type ferrous sulfate 325 mg (65 mg 325 mg PO DAILY 01/06/24 03/13/24 03/12/24 History iron) tablet (Feosol) Exam Exam Date and Time: 03/13/24 1145 Airway Mallampati Class: II TM Dist: >3cm Neck ROM: Full Loose/Missing/Broken Teeth: Yes (broken molar right side) Heart: S1S2 Lungs: CTAB Assessment and Plan Assessment Anesthesia Assessment: Anesthesia Plan Discussed and Chart Reviewed Final Anesthetic Review Family History of Problems with Anesthesia: No History of Problems with Anesthesia: No NPO: Yes ASA Class: II Final Preanesthetic Review: No Changes in Pt Med Stat, Meds/Allgs Chart Reviewed, Consent Obtained/Reviewed and Anes Risks/Benef Reviewed Patient Risk: Low Procedure Risk: Low Anesthetic Plan Anesthetic Plan: GA and Agree w/ Assess. and Plan Disposition: Standard PACU
--- NOTE | 2024-03-13 12:06 | MHC.SHP ---
Pre-Procedural Eval Section A - 24 Hr Update-Section A only Date of Service: 03/13/24 The patient is an INPATIENT: No Changes since office visit: No Cold of Flu in the past 2 weeks, No New Medical Problems, No Changes in Medication and No Patient answered all questions The patient has been examined within 24 hours of the surgical procedure. The History & Physical has been completed within 30 days and I have reviewed it.: Yes Section B - Complete if H&P > 30 days Chief Complaint: Abnormal uterine and vaginal bleeding, Allergies: Allergies Allergy/AdvReac Type Severity Reaction Status Date / Time No Known Allergies Allergy Verified 03/13/24 11:40 Plan Diagnosis/Plan: Unchanged I have reviewed the history and physical and performed a pertinent physical examination on my patient. No changes have occurred unless specified. Time Spent With Patient Time: Total time managing care of this patient today ____ minutes.
[2024-03-13 12:25] VITALS: BP 149/91; PULSE 96; RESP 16; TEMP 36.8; O2SAT 98; BMI 43.1
[2024-03-13 12:34] LABS: UPreg QC Valid YES
[2024-03-13 12:35] LABS: Urine Pregnancy NEGATIVE (NEGATIVE)
[2024-03-13] MEDS: Lactated Ringers 1,000 ML 100 ML IVCONT (12:38)
--- NOTE | 2024-03-13 13:37 | PM.OP ---
Brief Operative Note Date of Service: 03/13/24 Pre-op diagnosis: Abnormal uterine bleeding and glandular crowding with focal atypia on EMB pathology Post-op diagnosis: same (Normal endometrial cavity) Procedure: Hysteroscopy D&C Surgeon: Frank Medrano MD Anesthesia: GLMA Was an Body Maker Machine Setter used for this Procedure?: No Estimated blood loss (mL): 0 Pathology: other (Endometrial Scrapping) Condition: stable Disposition: PACU
--- NOTE | 2024-03-13 13:38 | W.PM.OPN ---
Operative Note Operative Note Date of Service: 03/13/24 Narrative: Preop Diagnosis: Abnormal uterine bleeding, glandular crowding with focal atypia on EMB pathology Operation: Diagnostic Hysteroscopy, Dilataion & Curettage Post Op Diagnosis: Normal endometrial and endocervical cavity, no evidence of pathology QBL: Minimal Anesthesia: GLMA Surgeon: Frank Medrano MD Planting Material Remover: None Complication: None Pathology: Endometrial Scrapings Procedure: The patient was put in the dorsal lithotomy position, scrubbed, and draped in the usual manner. A sterile speculum was inserted in the patient's vagina. The anterior lip of the cervix was grasped with a single tooth tenaculum. The cervix was dilated up to 5 mm, then the scope was inserted in the patient's uterus. Inspection revealed normal endocervical & endometrial cavity with no evidence of pathology. The scope was taken out of the uterine cavity , then sharp curetting was carried on with no complications. At the end of the procedure, all instruments were taken out of the patient uterine and vaginal cavity. The single tooth tenaculum was removed and homeostasis was assured using pressure. The patient tolerated the procedure well and was transferred to the PACU in a stable condition.
[2024-03-13 13:48] VITALS: BP 123/87; PULSE 102; RESP 16; TEMP 36.2; O2SAT 99
[2024-03-13 13:53] VITALS: BP 132/87; PULSE 102; RESP 16; O2SAT 95
[2024-03-13 13:58] VITALS: BP 119/80; PULSE 96; RESP 16; O2SAT 94
[2024-03-13 14:03] VITALS: BP 126/79; PULSE 90; RESP 16; O2SAT 94
[2024-03-13 14:20] VITALS: BP 110/74; PULSE 89; RESP 16; TEMP 36.2; O2SAT 97
== END 2024-03-13 14:35 | disposition home or self-care (01) ==
PROVIDERS: Visit Provider Obstetrics & Gynecology
PROC: 0UDB8ZZ Extraction of Endometrium, Via Natural or Artificial Opening Endoscopic (ICD-10-PCS; CPT 58558; principal; 2024-03-13 14:00)
DX: N93.9 Abnormal uterine and vaginal bleeding, unspecified (principal); J45.909 Unspecified asthma, uncomplicated; Z90.49 Acquired absence of other specified parts of digestive tract; Z79.899 Other long term (current) drug therapy; Z56.0 Unemployment, unspecified
CPT/HCPCS: 58558; 81025; 88305; J1100; J1885; J2405; J2704; J3010

== ENCOUNTER → 2024-03-13 10:57 | Outpatient (BNV) | payer MEDICAID, SELFPAY | PROVIDERS: Visit Provider Obstetrics & Gynecology | DX: N93.9 Abnormal uterine and vaginal bleeding, unspecified (principal) | CPT/HCPCS: 58558 ==

== ENCOUNTER 2024-03-31 14:38 | Outpatient (AMB) | payer MEDICAID, SELFPAY ==
--- NOTE | 2024-03-31 14:39 | A.OFFVIS_ITS ---
Intake Visit Reasons: post op Allergies No Known Allergies Allergy (Verified 03/13/24 11:40) HPI Comments Details: The patient schedule a telehealth visit appointment post hysteroscopy D&C no complaints minimal vaginal bleeding no feverishness chills or abdominal pain. The pathology showed the following: Endometrium, curettage: Benign disordered proliferative endometrium with focal secretory changes and focal stromal collapse, and scant benign endocervical glandular and squamous epithelium; no atypia or carcinoma. Office EMB pathology in 03/10 showed the following: Endometrium, biopsy: Few fragments of endometrial tissue with glandular crowding and focal atypia; background disordered proliferative endometrium. Multiple additional levels examined. Comment: Recommend curettage for further characterization, as clinically appropriate The following workup was done.: H&H= 13.3/41.8 TSH, hCG, GC and chlamydia were negative. Seventeen hydroxyprogesterone within normal Total and free testosterone=50/10.8 was elevated Co testing was done in 07/10 was negative. Pelvic ultrasound showed the following: IMPRESSION: 3.7 cm uterine fibroid. Enlarged ovaries with string of pearls appearance consistent with PCO morphology. Correlate clinically for PCOS. [facility] Medical History Asthma Surgical History Hx of cholecystectomy Family History Father Asthma Mother Asthma Maternal Grandmother Diabetes HTN (hypertension) Maternal Grandfather Diabetes HTN (hypertension) Social History Household Members: Children Housing: Apartment Are you a primary livestock caretaker to a significant other at home: No Do you presently have visiting nurse or other home services: No Alcohol intake: never Patient Tobacco Use Status: Never used Tobacco Current occupational status: unemployed Sexual orientation: Straight/Heterosexual Gender identity: Female Review of Systems Const All systems reviewed & are unremarkable except as noted in HPI and below Reports as per HPI and Reports no additional complaints GI Reports no additional complaints Reports no additional complaints Telehealth Telehealth Telehealth Platform: Telephone Location of provider rendering services: practice address Location of patient: address on file Patient Identification confirmed using: Name, : Yes Telehealth method: video Patient verbally consented to treatment: Yes Patient verbally consented to billing insurance company: Yes Patient informed of any privacy concerns related to visit: Yes Assessment & Plan Assessment & Plan (1) Abnormal uterine bleeding (AUB): Comment: glandular crowding and focal atypia on emb Negative for hyperplasia and/or atypia on D&C pathology Code(s): N93.9 - Abnormal uterine and vaginal bleeding, unspecified Category: Medical Plan: Discussed with the patient the results of the work up done and options of treatment including control pills , Mirena IUD, cyclic Provera. All pros, cons, risks and benefits if each option was discussed with the patient and the patient decided to go ahead with [facility]. (2) Uterine myoma: Code(s): D25.9 - Leiomyoma of uterus, unspecified Category: Medical Plan: Discussed with the patient the findings on pelvic ultrasound & the risk of myosarcoma; discussed with the patient the options of treatment including expectant management versus hysterectomy; the pros and cons, risks benefits of each approach were discussed with the patient including the fact that in cases of myosarcoma, surgical treatment can lead to early diagnosis and positively affects the prognosis; after further discussion, the patient decided to proceed with expectant management. Will repeat pelvic ultrasound periodically. Instructions given to patient to call in case any of the following occurs: pressure symptoms, abnormal uterine bleeding, pelvic pain; and to schedule a six-months pelvic ultrasound and a follow-up appointment . All questions answered, the patient verbalized understanding and agreed with the plan . (3) PCOS (polycystic ovarian syndrome): Code(s): E28.2 - Polycystic ovarian syndrome Category: Medical Plan: Discussed with the patient the results of her blood work included TSH, prolactin, testosterone, 17 hydroxyprogesterone and DHEA-S. Explained to the patient that she has a diagnosis of PCOS. D/w the patient the association of PCOS with an increase in the risk of diabetes or pre diabetes, heart disease, hypercholesterolemia and metabolic syndrome, endometrial hyperplasia and/or cancer if untreated and an increase in the risk of breast cancer. Recommended for the patient the following: -To call her pcp to screen for cardiovascular risk and diabetes with FBS and 2 hr GTT after 75 g OGTT, in addition to cholesterol, lipids, HDL and LDL. -Instructions given to patient to increase exercise combined with dietary changes reduce the risk of diabetes, explained to the patient that reduction in body weight has been associated with improved rate and decreased hirsutism as well as improvement in glucose tolerance and lipid levels -For her Menstrual cycle control: Discussed with the patient the following options of treatment : Combination low-dose hormonal contraceptives are recommended as the primary treatment for menstrual disorder Or Progestins: Cyclic progesterone versus Mirena IUD After discussion all the pros and cons risks benefits of each were discussed with the patient, the patient decided to proceed with control pills so a more detailed discussion re: control pills including mechanism of action, benefits (regular menses, less dysmenorrhea, less risk of ovarian cancer, ...), risks ( DVT, PE, Strokes, AK, increased breast ca, others). Instructions were given to use a back- up method for contraception x 1st 2 weeks, and to schedule a 3 months appointment for blood pressure check -discussed with the patient the Treatment of Hirsutism -If the patient is interested in will send pt for a consult to reproductive endocrinology. All questions answered. Pt verbalized understanding Orders: Orders US pelvic and transvaginal 6 Months D25.9 - Leiomyoma of uterus, unspecified Medications: New desogestrel-ethinyl estradiol 0.15-0.03 mg (Apri) 1 tab PO DAILY 28 days 28 tabs 2RF Coding Level of Care Code Tele Est Pt Level 3 (14692) Diagnoses Abnormal uterine bleeding (AUB) N93.9 Uterine myoma D25.9 PCOS (polycystic ovarian syndrome) E28.2
== END 2024-03-31 15:09 | disposition home or self-care (01) ==
LOC: HO.HWS 14:38
PROVIDERS: Visit Provider Obstetrics & Gynecology
DX: N93.9 Abnormal uterine and vaginal bleeding, unspecified (principal); D25.9 Leiomyoma of uterus, unspecified; E28.2 Polycystic ovarian syndrome
CPT/HCPCS: 99213

== ENCOUNTER → 2024-03-31 14:38 | Outpatient (BNVA) | payer MEDICAID, SELFPAY | PROVIDERS: Visit Provider Obstetrics & Gynecology ==

== ENCOUNTER 2024-07-06 11:36 | Outpatient (REF) | payer MEDICAID, SELFPAY ==
[2024-07-06 11:54] LABS: Hematocrit 36.4 % (37.0-47.0); Hemoglobin 11.1 g/dl (12.0-16.0); Mean Corpuscular HGB Conc 30.5 g/dl (31.0-35.0); Mean Corpuscular Hemoglobin 23.1 pg (27.0-33.0); Mean Corpuscular Volume 75.8 fL (80.0-98.0); Mean Platelet Volume 9.8 fL (9.4-12.3); Platelet Count 335 X10*3/uL (160-400); Red Cell Distribution Width 13.5 % (11.0-16.0); White Blood Count 8.2 X10*3/uL (4.8-10.8)
== END 2024-07-06 11:37 | disposition home or self-care (01) ==
LOC: HO.LAB 11:36
PROVIDERS: Visit Provider Advanced Practice Midwife
DX: N93.9 Abnormal uterine and vaginal bleeding, unspecified (principal)
CPT/HCPCS: 36415; 85027

== ENCOUNTER 2024-07-13 10:26 | Outpatient (AMB) | payer MEDICAID, SELFPAY ==
--- NOTE | 2024-07-13 10:24 | MHC.OFFVIS ---
Intake Visit Reasons: Lab follow up [employer] Well Treatment Operator Required: Yes [employer] And [employer] Well Treatment Operator Language: Automotive Service Advisor Services: Oil And Gas Well Treatment Operator Present (BitGo) [employer] Well Treatment Operator Name: Michelle [id number] Information Interpreted: clinical only Allergies No Known Allergies Allergy (Verified 03/13/24 11:40) HPI Comments Details: The patient is scheduled a telehealth visit for follow-up. Has been on control pills since 03/10 and has been having irregular menstrual cycles since then with no improvements. The following workup was done Hysteroscopy D&C The pathology showed the following: Endometrium, curettage: Benign disordered proliferative endometrium with focal secretory changes and focal stromal collapse, and scant benign endocervical glandular and squamous epithelium; no atypia or carcinoma. Office EMB pathology in 03/10 showed the following: Endometrium, biopsy: Few fragments of endometrial tissue with glandular crowding and focal atypia; background disordered proliferative endometrium. Multiple additional levels examined. Comment: Recommend curettage for further characterization, as clinically appropriate H&H= 13.3/41.8 TSH, hCG, GC and chlamydia were negative. Seventeen hydroxyprogesterone within normal Total and free testosterone=50/10.8 was elevated Co testing was done in 07/10 was negative. Pelvic ultrasound showed the following: IMPRESSION: 3.7 cm uterine fibroid. Enlarged ovaries with string of pearls appearance consistent with PCO morphology. Correlate clinically for PCOS. [facility] Medical History Asthma Surgical History Hx of cholecystectomy Family History Father Asthma Mother Asthma Maternal Grandmother Diabetes HTN (hypertension) Maternal Grandfather Diabetes HTN (hypertension) Social History Household Members: Children Housing: Apartment Are you a primary manager urgent care to a significant other at home: No Do you presently have visiting nurse or other home services: No Alcohol intake: never Patient Tobacco Use Status: Never used Tobacco Current occupational status: unemployed Sexual orientation: Straight/Heterosexual Gender identity: Female Telehealth Telehealth Telehealth Platform: Telephone Location of provider rendering services: practice address Location of patient: address on file Patient Identification confirmed using: Name, : Yes Telehealth method: video Patient verbally consented to treatment: Yes Patient verbally consented to billing insurance company: Yes Patient informed of any privacy concerns related to visit: Yes Assessment & Plan Assessment & Plan (1) Abnormal uterine bleeding (AUB): Comment: glandular crowding and focal atypia on emb Negative for hyperplasia and/or atypia on D&C pathology Code(s): N93.9 - Abnormal uterine and vaginal bleeding, unspecified Category: Medical Plan: Recommended the patient to continue control pills and schedule EMB appointment as soon as possible to rule out endometrial pathology including annual hyperplasia or malignancy. All questions answered, the patient verbalized understanding. I spent a total of 20 minutes reviewing the chart, talking to the patient via video and documenting in the medical record. Coding Level of Care Code Tele Est Pt Level 3 (70502) Diagnoses Abnormal uterine bleeding (AUB) N93.9
--- OUTSIDE RECORDS SUMMARY | 2024-07-13 15:09 | XMS_ITS | Encounter Summary ---
Author Organization [employer] Address [address] [place] [address] Care Team Providers Care It Application Architect Name Role Phone Inactive/Transferred Primary Care Provider Unava ilable Encounter Details Date Type Department Care Team ([facility] st Contact Info) Description 07/06/2024 Orders Only GENERIC EXTERNAL DATA DEPARTMENT Provider, Generic External Data Social History Tobacco Use Types Packs/Day Years Used Date Smoking Tobacco: Never Smokeless Tobacco: Never Alcohol Use Standard Drinks/Week Comments Never 0 (1 standard drink = 0.6 oz pur e alcohol) Education Answer Date Recorded What is the highest level of school you have completed or the highest degree you have received? 7th grade 10/09/2023 Comments No Sex and Gender Information Value Date Recorded Sex Assigned at Female 10/09/2023 8:54 AM EDT Legal Sex Female 7:05 PM EDT Gender Identity Female 10/09/2023 8:54 AM EDT Sexual Orientation Straight 10/09/2023 8: 54 AM EDT documented as of this encounter Plan of Treatment Not on file documented as of this encounter Procedures Procedure Name Priority Date/Time Associated Diagnosis Comments CBC Routine 07/06/2024 11:51 AM EST documented in this encounter Results * (ABNORMAL) CBC (07/06/2024 11:51 AM EST) White Blood Count 8.2 4.8 - 10.8 X10*3/uL [facility] Red Blood Count 4.80 4.20 - 5.50 X10*6/uL [facility] Hemoglobin 11.1(L) 12.0 - 16.0 g/dl [facility] Hematocrit 36.4(L) 37.0 - 47.0 % [facility] Mean Corpuscular Volume 75.8(L) 80.0 - 98.0 fL [facility] Mean Corpuscular Hemoglobin 23.1(L) 27.0 - 33.0 pg [facility] Mean Corpuscular HGB Conc 30.5(L) 31.0 - 35.0 g/dl [facility] Red Cell Distribution Width 13.5 11.0 - 16.0 % [facility] Platelet Count 335 160 - 400 X10*3/uL [facility] Mean Platelet Volume 9.8 9.4 - 12.3 fL [facility] NRBC Pct Auto 0.0 0.0 - 0.2 /100WBC [facility] NRBC Abs Auto 0.000 0.0 - 0.012 X10*3/uL [facility] 07/06/2024 11:5 1 AM EST 07/06/2024 11:51 AM EST us Generic External Data Provider LAB BLOOD ORDERAB LES Final Result [facility] [address] [place] [address] [phone] documented in this encounter Visit Diagnoses Not on filedocumented in this encounter Care Teams It Application Architect Relationship Specialty Start Date End Date Inactive/Transferred PCP - General 04/07/24 documented as of this encounter
--- OUTSIDE RECORDS SUMMARY | 2024-07-13 15:09 | XMS_ITS | Clinical Summary ---
Author Organization [employer] Address [address] [place] [address] Care Team Providers Care Registered Veterinary Technician Name Role Phone Inactive/Transferred Primary Care Provider Unava ilable Allergies No known active allergies Medications ferrous sulfate (Fe Tabs) 325 (65 Fe) MG EC tablet Take 1 tablet (325 mg) by mouth with breakfast. Do not crush, chew, or split. 30 tablet 10/09/2023 Active Active Problems No known active problems Encounters Date Type Department Care Team Description 07/06/2024 Orders Only GENERIC EXTERNAL DATA DEPARTMENT Provider, Generic External Data from Last 3 Months Social History Tobacco Use Types Packs/Day Years Used Date Smoking Tobacco: Never Smokeless Tobacco: Never Tobacco Cessation:Counseling Given: No Alcohol Use Standard Drinks/Week Comments Never 0 [...] Orientation Straight 10/09/2023 8: 54 AM EDT Last Filed Vital Signs Vital Sign Reading Time Taken Comments Blood Pressure 120/80 11/18/2023 1:15 PM EDT Pulse 94 11/18/2023 1:15 PM EDT Temperature 37.2 ??C (99 ??F) 11/18/2023 1:15 PM EDT Respiratory Rate 20 11/18/2023 1:15 PM EDT Oxygen Saturation 97% 10/09/2023 9:38 AM EDT Inhaled Oxygen Concentration - - Weight 107 kg (236 lb 12.8 oz) 11/18/2023 1:15 P M EDT Height 160 cm (5' 3 ) 11/18/2023 1:15 PM EDT Body Mass Index 41.95 11/18/2023 1:15 PM EDT Plan of Treatment Health Maintenance Due Date Last Done Comments Depression Screening 1990 HIV Screening 1990 SDOH Screening 1992 Alcohol/Substance Use Screening 2004 Hepatitis C Screening 2010 DTaP/Tdap/Td Vaccines (1 - Tdap) 11/13/2011 Hepatitis B Vaccines (1 of 3 - 19+ 3-dose series) 11/13/2011 COVID-19 Vaccine (1 - 2023-2 5 season) 2024 Influenza Vaccine (#1) 2024 Family Planning (PISQ) 11/17/2024 11/18/2023 Tobacco Screening 11/17/2024 11/18/2023 Cervical Cancer Screening 11/17/2028 HPV/Cotest 11/17/2028 11/18/2023 Pap Smear 11/17/2028 11/18/2023 Zoster Vaccines (1 of 2) 2042 RSV Patients and Pa tients Aged 60 years or older (1 - 1-dose 75+ series) 11/13/2067 HIB Vaccines Aged Out No longer eligi ble based on patient's age to complete this topic HPV Vaccines Aged Out No longer eligi ble based on patient's age to complete this topic Hepatitis A Vaccines Aged Out No long er eligible based on patient's age to complete this topic IPV Vaccines Aged Out No longer eligi ble based on patient's age to complete this topic Meningococcal Vaccine Aged Out No arpit elyse eligible based on patient's age to complete this topic Pneumococcal Vaccine: Pediat rics (0 to 5 Years) and At-Risk Patients (6 to 64 Years) Aged Out No longer eligi ble based on patient's age to complete this topic RSV under 20 months Aged Out No longe r eligible based on patient's age to complete this topic Rotavirus Vaccines Aged Out No longer eligible based on patient's age to complete this topic Procedures Procedure Name Priority Date/Time Associated Diagnosis Comments CBC Routine 07/06/2024 11:51 AM EST HPV MRNA E6/E7 REFLEX TO HPV 16, 18/45 Routine 11/18/2023 1:29 PM EDT PAP SMEAR Routine 11/18/2023 1:29 PM EDT from Last 3 Months or Most Recently Relevant to Health Maintenance Results * (ABNORMAL) CBC (07/06/2024 11:51 AM EST) White Blood Count 8.2 4.8 - 10.8 X10*3/uL [facility] Red Blood Count 4.80 4.20 - 5.50 X10*6/uL [facility] Hemoglobin 11.1(L) 12.0 - 16.0 g/dl [facility] Hematocrit 36.4(L) 37.0 - 47.0 % [facility] Mean Corpuscular Volume 75.8(L) 80.0 - 98.0 fL [facility] Mean Corpuscular Hemoglobin 23.1(L) 27.0 - 33.0 pg [facility] Mean Corpuscular HGB Conc 30.5(L) 31.0 - 35.0 g/dl [facility] Red Cell Distribution Width 13.5 11.0 - 16.0 % [facility] Platelet Count 335 160 - 400 X10*3/uL [facility] Mean Platelet Volume 9.8 9.4 - 12.3 fL [facility] NRBC Pct Auto 0.0 0.0 - 0.2 /100WBC [facility] NRBC Abs Auto 0.000 0.0 - 0.012 X10*3/uL [facility] 07/06/2024 11:5 1 AM EST 07/06/2024 11:51 AM EST us Generic External Data Provider LAB BLOOD ORDERAB LES Final Result [facility] [address] [place] [address] [phone] * HPV mRNA E6/E7 w/Reflex to HPV Genotypes 16, 18/45 (11/18/2023 1:29 PM EDT) HPV nRNA E6/E7 Not Detected Not Detected [facility] Comment:Methodology: Transcr iption-Mediated AmplificationThis assay detects E6/E7 viral messenger RNA (mRNA) from 14high-risk HPV types (16,18,31,33,35,39,45,51,52,56,58,59,66,68).Cervical sources are required for HPV testing.If a vaginal source from a patient who has had atotal hysterectomy with removal of cervix wassubmitted, please contact the testing laboratoryfor alternative testing options.For additional information, please refer [email or web address] [email or web address]/faq/ZPO988j4(This link if provided for information/educational purposes only.)THIS TEST WAS PERFORMED AT:[facility] [place] [id number] CANO MD HPV mRNA E6/E7 [facility] HPV 16 RNA [facility] HPV 18/45 RNA [facility] 11/18/2023 1:29 PM EDT 11/27/2023 12:30 PM EDT [place] [facility] CYTOLOGY ORDERABLES F inal Result [facility] [address] [place] [phone] * Pap Smear (11/18/2023 1:29 PM EDT) 11/18/2023 1:29 PM EDT 11/19/2023 9:10 AM EDT Narrative [facility] - 12/02/2023 5:17 PM EDT ----- ------- Name: Ghislaine Martinez ?Age/Sex: 33/F ? : 1990 Unit#: [id number] ?? Attend Dr: HOUSTON CADE CNM ?Re11/18/23 ?Status: DEP REF ? Location: HO.CLNP ? Disch: ? ----- ------- SPEC : [id number] ?RECD: 11/19/23 ? STATUS: ??SOUT ? REQ NUM: [id number] ? ALFREDO: 11/18/23 ? SUBM DR: HOUSTON CADE CNM ? ENTERED: ??11/19/23 ?SP TYPE: Pap Smr ?OTHR : ? ORDERED: ??Pap Smear ? Interpretation ?? Satisfactory for evaluation. ?? Negative for intraepithelial lesion or malignancy. ?? Mild inflammation. ? HPV mRNA E6/E7: ?NOT DETECTED ? This assay detects E6/E7 viral messenger RNA (mRNA) from 14 high-risk HPV types (16, 18, ?? 31, 33, 35, 39, 45, 51, 52, 56, 58, 59, 66, 68) ? HPV testing performed by [employer], [place], [place]. ??See reference laboratory ?? portion of the EMR for entire report. ?Clinical Information LMP: 11/15/2023 Previous PAP test: Unknown date/findings Other history: Abnormal uterine bleeding ? Material Received ?? ThinPrep-Vaginal/Cervical ----- ------- Signed (signature on file) Cheryl Green Damian 12/02/231716 ? ----- ------- ? END OF REPORT ? us [place] Cade CNM LAB CYTOLOGY ORDERABLES F inal Result [facility] [address] [place] [address] [phone] from Last 3 Months or Most Recently Relevant to Health Maintenance Insurance [facility] Care Teams Registered Veterinary Technician Relationship Specialty Start Date End Date Inactive/Transferred PCP - General 04/07/24
== END 2024-07-13 15:27 | disposition home or self-care (01) ==
LOC: HO.HWS 10:26
PROVIDERS: Visit Provider Obstetrics & Gynecology
DX: N93.9 Abnormal uterine and vaginal bleeding, unspecified (principal)
CPT/HCPCS: 99213

== ENCOUNTER 2024-07-27 07:48 | Outpatient (AMB) | payer MEDICAID, SELFPAY ==
--- OUTSIDE RECORDS SUMMARY | 2024-07-27 07:49 | XMS_ITS | Encounter Summary ---
Author Organization [employer] Address [address] [place] [address] Care Team Providers Care Agricultural Researcher Name Role Phone Inactive/Transferred Primary Care Provider Unava ilable Encounter Details Date Type Department Care Team ([facility] st Contact Info) Description 07/06/2024 Orders Only [...] Blood Count 8.2 4.8 - 10.8 X10*3/uL [facility] Red Blood Count 4.80 4.20 - 5.50 X10*6/uL [facility] Hemoglobin 11.1(L) 12.0 - 16.0 g/dl [facility] Hematocrit 36.4(L) 37.0 - 47.0 % [facility] Mean Corpuscular Volume 75.8(L) 80.0 - 98.0 fL [facility] Mean Corpuscular Hemoglobin 23.1(L) 27.0 - 33.0 pg [facility] Mean Corpuscular HGB Conc 30.5(L) 31.0 - 35.0 g/dl [facility] Red Cell Distribution Width 13.5 11.0 - 16.0 % [facility] Platelet Count 335 160 - 400 X10*3/uL [facility] Mean Platelet Volume 9.8 9.4 - 12.3 fL [facility] NRBC Pct Auto 0.0 0.0 - 0.2 /100WBC [facility] NRBC Abs Auto 0.000 0.0 - 0.012 X10*3/uL [facility] 07/06/2024 11:5 1 AM EST 07/06/2024 11:51 AM EST us Generic External Data Provider LAB BLOOD ORDERAB LES Final Result [facility] [address] [place] [address] [phone] documented in this encounter Visit Diagnoses Not on filedocumented in this encounter Care Teams Agricultural Researcher Relationship Specialty Start Date End Date Inactive/Transferred PCP - General 04/07/24 documented as of this encounter
--- OUTSIDE RECORDS SUMMARY | 2024-07-27 07:49 | XMS_ITS | Clinical Summary ---
Author Organization [employer] Address [address] [facility] [address]t [place] [address] Care Team Providers Care Inspector Hot Forgings Name Role Phone Inactive/Transferred Primary Care Provider [...] 5 Years) and At-Risk Patients (6 to 49) Years) Aged Out No longer elig ible based on patient's age to complete this [...] Blood Count 8.2 4.8 - 10.8 X10*3/uL [facility] Red Blood Count 4.80 4.20 - 5.50 X10*6/uL [facility] Hemoglobin 11.1(L) 12.0 - 16.0 g/dl [facility] Hematocrit 36.4(L) 37.0 - 47.0 % [facility] Mean Corpuscular Volume 75.8(L) 80.0 - 98.0 fL [facility] Mean Corpuscular Hemoglobin 23.1(L) 27.0 - 33.0 pg [facility] Mean Corpuscular HGB Conc 30.5(L) 31.0 - 35.0 g/dl [facility] Red Cell Distribution Width 13.5 11.0 - 16.0 % [facility] Platelet Count 335 160 - 400 X10*3/uL [facility] Mean Platelet Volume 9.8 9.4 - 12.3 fL [facility] NRBC Pct Auto 0.0 0.0 - 0.2 /100WBC [facility] NRBC Abs Auto 0.000 0.0 - 0.012 X10*3/uL [facility] 07/06/2024 11:5 1 AM EST 07/06/2024 11:51 AM EST us Generic External Data Provider LAB BLOOD ORDERAB LES Final Result [facility] [address] [place] [address] [phone] * HPV mRNA E6/E7 w/Reflex to HPV Genotypes 16, 18/45 (11/18/2023 1:29 PM EDT) HPV nRNA E6/E7 Not Detected Not Detected [facility] Comment:Methodology: Transcr iption-Mediated AmplificationThis assay detects E6/E7 viral messenger RNA (mRNA) from 14high-risk HPV types (16,18,31,33,35,39,45,51,52,56,58,59,66,68).Cervical sources are required for HPV testing.If a vaginal source from a patient who has had atotal hysterectomy with removal of cervix wassubmitted, please contact the testing laboratoryfor alternative testing options.For additional information, please refer tohttp://education.TearScience/faq/OJI804g7(This link if provided for information/educational purposes only.)THIS TEST WAS PERFORMED AT:[employer] [place] [phone] CANO MD HPV mRNA E6/E7 TNP [facility] HPV 16 RNA [facility] HPV 18/45 RNA [facility] 11/18/2023 1:29 PM EDT 11/27/2023 12:30 PM EDT [place] [facility] CYTOLOGY ORDERABLES F inal Result [facility] [address] [place] [address] [phone] * Pap Smear (11/18/2023 1:29 PM EDT) 11/18/2023 1:29 PM EDT 11/19/2023 9:10 AM EDT Narrative [facility] - 12/02/2023 5:17 PM EDT ----- ------- Name: Michelle,Ghislaine ?Age/Sex: 33/F ? : 1990 Unit#: [id number] ?? Attend Dr: HOUSTON CADE CNM ?Re11/18/23 ?Status: DEP REF ? [facility] ? Disch: ? ----- ------- SPEC : [id number] ?RECD: 11/19/23 ? STATUS: ??SOUT ? REQ NUM: [id number] ? ALFREDO: 11/18/231328 ? SUBM DR: HOUSTON CADE CNM ? [...] 66, 68) ? HPV testing performed by [employer], [place], [place]. ??See reference laboratory ?? portion of the EMR for entire report. ?Clinical Information LMP: 11/15/2023 Previous PAP test: Unknown date/findings Other history: Abnormal uterine bleeding ? Material Received ?? ThinPrep-Vaginal/Cervical ----- ------- Signed (signature on file) Cheryl Green Damian 12/02/237 ? ----- ------- ? END OF REPORT ? us [place] Cade CNM LAB CYTOLOGY ORDERABLES F inal Result [facility] [address] [place] [address] [phone] from Last 3 Months or Most Recently Relevant to Health Maintenance Insurance [facility] C3 Care Teams Inspector Hot Forgings Relationship Specialty Start Date End Date Inactive/Transferred PCP - General 04/07/24
--- NOTE | 2024-07-27 07:52 | A.OFFVIS_ITS ---
Vital Signs 07/27/24 07:59 Height 5 ft 2 in Weight 233 lb BMI 42.6 BP 110/74 Intake Visit Reasons: EMB Community Assistant Required: Yes Community Assistant Language: Photography Professor Services: Community Assistant Present (in person) Community Assistant Name: Luisa HUYNH Information Interpreted: non-clinical & clinical Beach Patrol Lieutenant: Beach Patrol Lieutenant Present (Luisa HUYNH) Accompanied by: Daughter Allergies No Known Allergies Allergy (Verified 07/27/24 08:03) HPI Comments Details: Presenting for repeat EMB. The patient is still on control pills with no complaints. 02/19/2024 Glandular crowding and focal atypia on emb 03/13/2024 Negative for hyperplasia and/or atypia on D&C pathology [facility] Medical History Asthma Surgical History Hx of cholecystectomy Family History Father Asthma Mother Asthma Maternal Grandmother Diabetes HTN (hypertension) Maternal Grandfather Diabetes HTN (hypertension) Social History Household Members: Children Housing: Apartment Are you a primary child care specialist to a significant other at home: No Do you presently have visiting nurse or other home services: No Alcohol intake: never Patient Tobacco Use Status: Never used Tobacco Current occupational status: unemployed Sexual orientation: Straight/Heterosexual Gender identity: Female Female Reproductive History Menstrual Date of last menstrual period: 07/09/24 Review of Systems Const All systems reviewed & are unremarkable except as noted in HPI and below Reports as per HPI and Reports no additional complaints GI Reports no additional complaints Reports no additional complaints Physical Exam Vital Signs: Last Vital Signs BP 110/74 07/27/24 07:59 BMI result Body Mass Index 42.6 Office Procedures Endometrial Biopsy Details: The patient was counseled regarding the indication and benefits of endometrial sampling to rule out endometrial pathology including not limited to endometrial hyperplasia or endometrial cancer and others; The alternatives (Either do nothing vs. hysteroscopy D&C) & the risks were discussed with the patient including but not limited: pain, uterine perforation, bleeding, infection, possible injury to bladder, bowel, ureter, possible need for blood transfusion with all its possible risks. The patient verbalized understanding all questions answered and signed consent. Urine test done in the office was negative The patient was placed into the dorsal lithotomy position; a speculum was inserted in the vagina. Using aseptic technique for the procedure, the cervix was cleansed with Betadine. The anterior lip of the cervix was grasped with a single tooth tenaculum. The uterus was sounded to 7 cm with a 4 mm Pipelle was used. Tissues samples were obtained and placed in formalin, in a patient labeled container and sent to the pathology department. At the end of the procedure, there was minimal bleeding noted The patient tolerated the procedure well and was discharged in good condition with the following instructions: Nothing in the vagina until the bleeding stops. No sex until the bleeding stops, to call if any of the following occurs: fever (>100.4), flu-like symptoms, abdominal pain, heavy bleeding, four smelling vaginal discharge. The patient was instructed to schedule a Follow up appointment in 2 weeks to discuss pathology results of the biopsy and treatment options. This note was generated with a voice recognition program. Some errors may have been overlooked during the review of this note. Sometimes these errors may affect the content or meaning of a given sentence. 60040-Rptztpjqmix Biopsy Results AMB Test Urine AMB Test Urine Negative Last Edit by Luisa Merritt CMA on 08:06 Results Reviewed Results Reviewed: Laboratory Last Values [facility]st Clinic Negative 07/27/24 08:06 Assessment & Plan Assessment & Plan (1) Abnormal uterine bleeding (AUB): Comment: 02/19/2024 Glandular crowding and focal atypia on emb 03/13/2024 Negative for hyperplasia and/or atypia on D&C pathology Code(s): N93.9 - Abnormal uterine and vaginal bleeding, unspecified Category: Medical Plan: EMB done, see procedure note Orders: Orders AMB HCG Urine Test Today Z32.02 - Encounter for test, result negative AMB Endometrial Biopsy Today N93.9 - Abnormal uterine and vaginal bleeding, unspecified Coding Level of Care Code Procedure Only Diagnoses Abnormal uterine bleeding (AUB) N93.9 CPT Codes Endometrial Biopsy - CPT: 85660-Eoxzftseqqa Biopsy ([id number])
[2024-07-27 07:59] VITALS: BP 110/74; BMI 42.6
== END 2024-07-27 08:58 | disposition home or self-care (01) ==
LOC: HO.HWS 07:48
PROVIDERS: Visit Provider Obstetrics & Gynecology
DX: N93.9 Abnormal uterine and vaginal bleeding, unspecified (principal); Z32.02 Encounter for pregnancy test, result negative
CPT/HCPCS: 58100

== ENCOUNTER 2024-07-27 07:48 | Outpatient (REF) | payer MEDICAID, SELFPAY ==
--- OUTSIDE RECORDS SUMMARY | 2024-07-27 08:26 | XMS_ITS | Encounter Summary ---
Author Organization [employer] Address [address] [place] [address] Care Team Providers Care Payroll Accounting Specialist Name Role Phone Inactive/Transferred Primary Care Provider Unava ilable Encounter Details Date Type Department Care Team ([facility] st Contact Info) Description 07/06/2024 Orders [...] Blood Count 8.2 4.8 - 10.8 X10*3/uL [facility] Red Blood Count 4.80 4.20 - 5.50 X10*6/uL [facility] Hemoglobin 11.1(L) 12.0 - 16.0 g/dl [facility] Hematocrit 36.4(L) 37.0 - 47.0 % [facility] Mean Corpuscular Volume 75.8(L) 80.0 - 98.0 fL [facility] Mean Corpuscular Hemoglobin 23.1(L) 27.0 - 33.0 pg [facility] Mean Corpuscular HGB Conc 30.5(L) 31.0 - 35.0 g/dl [facility] Red Cell Distribution Width 13.5 11.0 - 16.0 % [facility] Platelet Count 335 160 - 400 X10*3/uL [facility] Mean Platelet Volume 9.8 9.4 - 12.3 fL [facility] NRBC Pct Auto 0.0 0.0 - 0.2 /100WBC [facility] NRBC Abs Auto 0.000 0.0 - 0.012 X10*3/uL [facility] 07/06/2024 11:5 1 AM EST 07/06/2024 11:51 AM EST us Generic External Data Provider LAB BLOOD ORDERAB LES Final Result [facility] [address] [place] [address] [phone] documented in this encounter Visit Diagnoses Not on filedocumented in this encounter Care Teams Payroll Accounting Specialist Relationship Specialty Start Date End Date Inactive/Transferred PCP - General 04/07/24 documented as of this encounter
--- OUTSIDE RECORDS SUMMARY | 2024-07-27 08:26 | XMS_ITS | Clinical Summary ---
Author Organization [employer] Address [address] [facility] [address] [place] [address] Care Team Providers Care Kayaking Instructor Name Role Phone Inactive/Transferred Primary Care Provider [...] Final Result [facility] [address] [place] [address] [phone] * HPV mRNA E6/E7 w/Reflex to [...] alternative testing options.For additional information, please refer tohttp://education.Memolane/faq/KBK451a7(This link if provided for information/educational purposes only.)THIS TEST WAS PERFORMED AT:[employer] [place] [phone] CANO MD HPV mRNA E6/E7 TNP [facility] HPV 16 RNA [facility] HPV 18/45 RNA [facility] 11/18/2023 1:29 PM EDT 11/27/2023 12:30 PM EDT [place] [facility] CYTOLOGY ORDERABLES F inal Result [facility] [address] [place] [address] [phone] * Pap Smear (11/18/2023 1:29 PM EDT) 11/18/2023 1:29 PM EDT 11/19/2023 9:10 AM EDT Narrative [facility] - 12/02/2023 5:17 PM EDT ----- ------- Name: Michelle,Ghislaine ?Age/Sex: 33/F ? : 1990 Unit#: [id number] ?? Attend Dr: HOUSTON CADE CNM ?Re11/18/23 ?Status: DEP REF ? [facility] ? Disch: ? ----- ------- SPEC : [id number] ?RECD: 11/19/23 ? STATUS: ??SOUT ? REQ NUM: [id number] ? ALFREDO: 11/18/231328 ? SUBM DR: HOUSTON [...] 66, 68) ? HPV testing performed by [employer], [place], [place]. ??See reference laboratory ?? portion of [...] inal Result [facility] [address] [place] [address] [phone] from Last 3 Months or Most Recently Relevant to Health Maintenance Insurance [facility] C3 Care Teams Kayaking Instructor Relationship Specialty Start Date End Date Inactive/Transferred PCP - General 04/07/24
== END 2024-07-27 07:49 | disposition home or self-care (01) ==
LOC: HO.LNP 07:48
PROVIDERS: Visit Provider Obstetrics & Gynecology
DX: N93.9 Abnormal uterine and vaginal bleeding, unspecified (principal)
CPT/HCPCS: 58100; 81025; 88305

== ENCOUNTER 2024-09-09 10:15 | Outpatient (AMB) | payer MEDICAID, SELFPAY ==
--- NOTE | 2024-09-09 10:31 | MHC.OFFVIS ---
Vital Signs 09/09/24 10:34 BP 122/68 Intake Visit Reasons: follow up control/emb results DO NOT RS Senior Financial Accountant Required: Yes Senior Financial Accountant Language: Jackhammer Splitter Operator Services: Senior Financial Accountant Present (in person) Senior Financial Accountant Name: AMINA Avian Information Interpreted: non-clinical & clinical Hot Shot: Hot Shot Present (AMINA Avina ) Accompanied by: Self / Same As Patient Allergies No Known Allergies Allergy (Verified 09/09/24 10:32) HPI Comments Details: The patient is presenting after endometrial biopsy. The patient has no complaints, no vaginal bleeding, no feverishness chills or abdominal pain. The endometrial biopsy pathology report showed the following: Mid-secretory endometrium; negative for atypia, hyperplasia or malignancy The patient is still on control pills with no complaints. Here is a summary of EMB pathologies 02/19/2024 Glandular crowding and focal atypia on emb 03/13/2024 Negative for hyperplasia and/or atypia on D&C pathology 07/27/2024 mid secretory endometrium and negative for atypia hyperplasia or malignancy PFSH Medical History Asthma Surgical History Hx of cholecystectomy Family History Father Asthma Mother Asthma Maternal Grandmother Diabetes HTN (hypertension) Maternal Grandfather Diabetes HTN (hypertension) Social History Household Members: Children Housing: Apartment Are you a primary family day carer to a significant other at home: No Do you presently have visiting nurse or other home services: No Alcohol intake: never Patient Tobacco Use Status: Never used Tobacco Current occupational status: unemployed Sexual orientation: Straight/Heterosexual Gender identity: Female Review of Systems Const All systems reviewed & are unremarkable except as noted in HPI and below Reports as per HPI and Reports no additional complaints GI Reports no additional complaints Reports no additional complaints Physical Exam Vital Signs: Last Vital Signs BP 122/68 09/09/24 10:34 Assessment & Plan Assessment & Plan (1) Abnormal uterine bleeding (AUB): Comment: 02/19/2024 Glandular crowding and focal atypia on emb 03/13/2024 Negative for hyperplasia and/or atypia on D&C pathology 08/11/2024 negative-EMB Code(s): N93.9 - Abnormal uterine and vaginal bleeding, unspecified Category: Medical Plan: Discussed with the patient the results the EMB pathology, the patient was reassured, recommended to stay on control pills and repeat EMB in 4 months. Instructions given the patient to call in case of abnormal bleeding in 2 schedule a 4 months EMB appointment. All questions answered, the patient verbalized understanding Coding Level of Care Code Est Pt Level 3 (63027) Diagnoses Abnormal uterine bleeding (AUB) N93.9
[2024-09-09 10:34] VITALS: BP 122/68
--- OUTSIDE RECORDS SUMMARY | 2024-09-09 11:52 | XMS_ITS | Encounter Summary ---
Author Organization [employer] Address [address] [facility] [address]t [place] [address] Care Team Providers Care Berry Picker Machine Operator Name Role Phone Inactive/Transferred Primary Care Provider Unava ilable Encounter Details Date Type Department Care Team ([facility] st Contact Info) Description 08/28/2024 Population Health Risk Score [facility] Care [facility] (C3) Department [address] [facility] [address] [place] [id number] Provider, Population Health Generic Social History Tobacco Use Types Packs/Day Years [...] on file documented as of this encounter Visit Diagnoses Not on filedocumented in this encounter Care Teams Berry Picker Machine Operator Relationship Specialty Start Date End Date Inactive/Transferred PCP - General 04/07/24 documented as of this encounter
--- OUTSIDE RECORDS SUMMARY | 2024-09-09 11:52 | XMS_ITS | Encounter Summary ---
Author Organization [employer] Address [address] [place] [address] Care Team Providers Care Acetone Button Paster Name Role Phone Inactive/Transferred Primary Care Provider Unava ilable Reason for Visit * Reason Onset Date Comments New patient appt. 09/04/2024 Encounter Details Date Type Department Care Team ([facility] st Contact Info) Description 09/04/2024 Telephone [facility] [address] [place] [address] Jasperet Figueroa MD [address] [place] [address] New patient appt. Social History Tobacco Use Types Packs/Day Years [...] AM EDT documented as of this encounter Miscellaneous Notes * Telephone Encounter - Nina Tinsley - 09/04/2024 1:03 PM EDT Patient added to [facility] New patient wait list as of 09/04/24. documented in this encounter Plan of Treatment Not on file documented as of this encounter Visit Diagnoses Not on filedocumented in this encounter Care Teams Acetone Button Paster Relationship Specialty Start Date End Date Inactive/Transferred PCP - General 04/07/24 documented as of this encounter
--- OUTSIDE RECORDS SUMMARY | 2024-09-09 11:52 | XMS_ITS | Clinical Summary ---
Author Organization [employer] [facility] Address [address] [facility] [address] [place] [address] Care Team Providers Care Instrument And Control Technician Name Role Phone Inactive/Transferred Primary Care Provider Unava ilable Allergies No known active allergies Medications ferrous sulfate (Fe Tabs) 325 (65 Fe) MG EC tablet Take 1 tablet (325 mg) by mouth with breakfast. Do not crush, chew, or split. 30 tablet 10/09/2023 Active Active Problems No known active problems Encounters Date Type Department Care Team Description 09/04/2024 Telephone [facility] [address] [place] [address] Jaspreet Figueroa MD New patient appt. 08/28/2024 Population Health Risk Score [facility] (C3) Department [address] [facility] [address] [place] [address] Provider, Population Health Generic 07/27/2024 Orders Only GENERIC EXTERNAL DATA DEPARTMENT Provider, Generic External Data 07/06/2024 Orders Only GENERIC EXTERNAL DATA DEPARTMENT [...] - 19+ 3-dose series) 11/13/2011 COVID-19 Vaccine ( - 2023-2 5 season) 2024 Influenza Vaccine [...] Procedure Name Priority Date/Time Associated Diagnosis Comments HEMATOXYLIN AND EOSIN STAIN Routine 07/27/2024 8:12 AM EST CBC Routine 07/06/2024 11:51 AM EST HPV MRNA E6/E7 REFLEX TO HPV 16, 18/45 Routine 11/18/2023 1:29 PM EDT PAP SMEAR Routine 11/18/2023 1:29 PM EDT from Last 3 Months or Most Recently Relevant to Health Maintenance Results * Hematoxylin and Eosin Stain (07/27/2024 8:12 AM EST) 07/27/2024 8:12 AM EST 07/27/2024 9:08 AM EST [facility] - 07/28/2024 2:52 PM EST ----- ------- Name: Ghislaine Martinez ?Age/Sex: 33/F ? : 1990 Unit#: [id number] ?? Attend Dr: Frank Medrano MD ?Re07/27/24 ?Status: DEP REF ? Location: HO.LNP ?Disch: ? ----- ------- SPEC : [id number] ?RECD: 07/27/24 ? STATUS: ??SOUT ? REQ NUM: [id number] ? ALFREDO: 07/27/24 ? SUBM DR: Frank Medrano MD ? ENTERED: ??07/27/24 ?SP TYPE: Surgical ? OTHR : [facility] ? ORDERED: ??HE Stain/2, Gross Micro L4 ? Diagnosis ?? Endometrium, biopsy: ??Mid-secretory endometrium; negative for atypia, hyperplasia or ?? malignancy. ?Clinical History AUB ?Microscopic Description Microscopic sections reviewed. ? Material Received ?? EMB ? Gross Description Received in formalin labeled ?EMB? are fragments of red-pink soft tissue mixed with mucus and clotted blood forming an aggregate measuring 2.5 x 1.8 x 0.2 cm which is wrapped in lens paper and entirely submitted for microscopic examination, multiple pieces in cassette [facility] Copies To: ?? [facility] ?? [address] ?? [place] [address] ? Frank Medrano MD ?? [facility] ?? [address] ?? [place] [address] ?? [phone] ----- ------- Signed (signature on file) Keesha Womack MD 07/28/24 9535 ? ----- ------- ? END OF REPORT ? us Generic External Data Provider LAB BLOOD ORDERAB LES Final Result [facility] [address] [place], [place] [phone] * (ABNORMAL) CBC (07/06/2024 11:51 AM EST) White Blood Count 8.2 4.8 - 10.8 X10*3/uL [facility] Red Blood Count 4.80 4.20 - 5.50 X10*6/uL [facility] Hemoglobin 11.1(L) 12.0 - 16.0 g/dl [facility] Hematocrit 36.4(L) 37.0 - 47.0 % [facility] Mean Corpuscular Volume 75.8(L) 80.0 - 98.0 fL [facility] Mean Corpuscular Hemoglobin 23.1(L) 27.0 - 33.0 pg [facility] Mean Corpuscular HGB Conc 30.5(L) 31.0 - 35.0 g/dl [facility] Red Cell Distribution Width 13.5 11.0 - 16.0 % [facility] Platelet Count 335 160 - 400 X10*3/uL [facility] Mean Platelet Volume 9.8 9.4 - 12.3 fL [facility] NRBC Pct Auto 0.0 0.0 - 0.2 /100WBC [facility] NRBC Abs Auto 0.000 0.0 - 0.012 X10*3/uL [facility] 07/06/2024 11:5 1 AM EST 07/06/2024 11:51 AM EST us Generic External Data Provider LAB BLOOD ORDERAB LES Final Result [facility] [address] [place] [phone] * HPV mRNA E6/E7 w/Reflex to HPV Genotypes 16, 18/45 (11/18/2023 1:29 PM EDT) HPV nRNA E6/E7 Not Detected Not Detected [facility] Comment:Methodology: Transcr iption-Mediated AmplificationThis assay detects E6/E7 viral messenger RNA (mRNA) from 14high-risk HPV types (16,18,31,33,35,39,45,51,52,56,58,59,66,68).Cervical sources are required for HPV testing.If a vaginal source from a patient who has had atotal hysterectomy with removal of cervix wassubmitted, please contact the testing laboratoryfor alternative testing options.For additional information, please refer tohttp://education.Mizzen+Main/faq/DZM521f4(This link if provided for information/educational purposes only.)THIS TEST WAS PERFORMED AT:[employer] [address] [phone] CANO MD HPV mRNA E6/E7 TNP [facility] HPV 16 RNA TNP [facility] HPV 18/45 RNA TNP [facility] 11/18/2023 1:29 PM EDT 11/27/2023 12:30 PM EDT [place] Cade CNM LAB CYTOLOGY ORDERABLES F inal Result [facility] [address] [place] [address] [phone] * Pap Smear (11/18/2023 1:29 PM EDT) 11/18/2023 1:29 PM EDT 11/19/2023 9:10 AM EDT Ja [facility] - 12/02/2023 5:17 PM EDT ----- ------- Name: Ghislaine Martinez ?Age/Sex: 33/F ? : 1990 Unit#: [id number] ?? Attend Dr: HOUSTON CADE CNM ?Re11/18/23 ?Status: DEP REF ? Location: [facility] ? Disch: ? ----- ------- SPEC : [id number] ?RECD: 11/19/23 ? STATUS: ??SOUT ? REQ NUM: [id number] ? ALFREDO: 11/18/23 ? SUBM DR: HOUSTON [...] 66, 68) ? HPV testing performed by [employer], [place], [place]. ??See reference laboratory ?? portion of the EMR for entire report. ?Clinical Information LMP: 11/15/2023 Previous PAP test: Unknown date/findings Other history: Abnormal uterine bleeding ? Material Received ?? ThinPrep-Vaginal/Cervical ----- ------- Signed (signature on file) Cheryl Green Damian 12/02/231716 ? ----- ------- ? END OF REPORT ? us [place] Cade [facility] CYTOLOGY ORDERABLES F inal Result [facility] [address] [place], [place] [phone] from Last 3 Months or Most Recently Relevant to Health Maintenance Insurance [facility] C3 Care Teams Instrument And Control Technician Relationship Specialty Start Date End Date Inactive/Transferred PCP - General 04/07/24
== END 2024-09-09 10:44 | disposition home or self-care (01) ==
LOC: HO.HWS 10:16
PROVIDERS: Visit Provider Obstetrics & Gynecology
DX: N93.9 Abnormal uterine and vaginal bleeding, unspecified (principal)
CPT/HCPCS: 99213

== ENCOUNTER → 2024-09-09 10:15 | Outpatient (BNVA) | payer MEDICAID, SELFPAY | PROVIDERS: Visit Provider Obstetrics & Gynecology | DX: N93.9 Abnormal uterine and vaginal bleeding, unspecified (principal) | CPT/HCPCS: 99212 ==

== ENCOUNTER 2024-12-22 09:12 | Emergency (ER) | payer OTHER, SELFPAY ==
--- NOTE | ~2024-12-22 | CT_ITS ---
EXAMINATION: CT ABDOMEN AND PELVIS WITHOUT CONTRAST CLINICAL INFORMATION: Sudden onset of severe left flank pain, left UVJ stone DLP: 699 mGY*cm COMPARISON: None available. TECHNIQUE: Multidetector volumetric imaging was performed from the superior aspect of the liver through the pubic symphysis. Sagittal and coronal reformatted images were obtained on the technologist's workstation. This CT examination was performed using dose optimization techniques as appropriate, variously including the following: *Automated exposure control *Adjustment of mA and/or kV according to patient size (this includes techniques or standardized protocols for targeted exams where dose is matched to indication/reason for exam; i.e. extremities or head) *Use of iterative reconstruction technique FINDINGS: LUNG BASES: The visualized lung bases are unremarkable. LIVER, GALLBLADDER, AND BILIARY TREE: The liver is normal in size, shape, and attenuation. No focal hepatic lesion or biliary ductal dilatation is present. The gallbladder is surgically absent. There are clips in the gallbladder fossa. Extrahepatic bile duct diameter is 7 mm near the ampulla of Jerome. PANCREAS: Unremarkable. SPLEEN: Unremarkable. ADRENAL GLANDS: Unremarkable. KIDNEYS AND URETERS: There is mild left hydronephrosis secondary to 3 mm stone at the left ureterovesicular junction. The right kidney is unremarkable. BLADDER: Unremarkable. GASTROINTESTINAL TRACT: The small and large bowel are unremarkable. The appendix is unremarkable. ABDOMINAL WALL: There is a small right periumbilical hernia containing normal density adipose tissue. LYMPH NODES: Normal. VASCULAR: Unremarkable. PELVIC VISCERA: Unremarkable. OSSEOUS STRUCTURES: Unremarkable. CT/CT abdomen pelvis wo IV con IMPRESSION: Mild left hydronephrosis related to a 3 mm left UVJ stone. Fleischner guidelines were followed. Electronically signed by: Sanchez Joe MD 12/22/2024 11:15 AM EDT
[2024-12-22 09:26] VITALS: BP 154/107; PULSE 90; RESP 20; TEMP 36.8; O2SAT 98; BMI 36.3
--- NOTE | 2024-12-22 09:26 | ED.ABDPAIN ---
HPI - Abdominal Pain General Chief Complaint: Abdominal Pain Stated Complaint: lower back pain vomiting Time Seen by Provider: 12/22/24 11:58 History of Present Illness HPI narrative: this is RME portion of note only please see full HPI dictation Related Data Home Medications ?Medication ?Instructions ?Recorded ?Confirmed ferrous sulfate 325 mg (65 mg 325 mg PO DAILY 01/06/24 03/13/24 iron) tablet (Feosol) Previous Rx's ?Medication ?Instructions ?Recorded desogestrel 0.15 mg-ethinyl 1 tab PO DAILY 28 days #28 tabs 09/02/24 estradiol 0.03 mg tablet (Apri) cephalexin 500 mg capsule 500 mg PO QID #28 caps 12/22/24 ketorolac 10 mg tablet 10 mg PO Q6H PRN pain #20 tabs 12/22/24 tamsulosin 0.4 mg capsule (Flomax) 0.4 mg PO DAILY #10 caps 12/22/24 Allergies Allergy/AdvReac Type Severity Reaction Status Date / Time No Known Allergies Allergy Verified 12/22/24 09:27 [facility] Past Medical History Medical History Asthma Surgical History Hx of cholecystectomy Family History Family History Father Asthma Mother Asthma Maternal Grandmother Diabetes HTN (hypertension) Maternal Grandfather Diabetes HTN (hypertension) Social History Social History Household Members: Children Housing: Apartment Are you a primary healthcare social worker to a significant other at home: No Do you presently have visiting nurse or other home services: No Alcohol intake: never Patient Tobacco Use Status: Never used Tobacco Advance Directives: No Advance Directives Information Provided: Yes Do you have a plan to hurt others: No Plan Current occupational status: unemployed Sexual orientation: Straight/Heterosexual Gender identity: Female Physical Exam ED Vital Signs: Vital Signs - 24 hr 12/22/24 12:45 Temperature 97.8 F Pulse Rate 89 Respiratory Rate 20 Blood Pressure 152/98 H Pulse Oximetry 98 Oxygen Delivery Method Room Air BMI result Body Mass Index 36.3 Course Course Course Narrative: 34 yo female with PMH of PCOS here with abrupt onset L flank pain, n/v, no fevers, she states she only has a couple of drops of her urine. She tried tylenol with no relief. She has no hx of renal colic. At this time will need labs, UA, CT scan for renal colic. IM toradol ordered. this is a RAPID medical screening exam the rest of the history and physical exam is to be done by the main provider. JACKIE 12/22/24 927am Medical Decision Making Lab Data 12/22/24 09:45 12/22/24 09:45 Labs: Lab Results 12/22/24 12/22/24 Range/Units 09:45 12:02 WBC 8.3 (4.8-10.8) X10*3/uL RBC 5.29 (4.20-5.50) X10*6/uL Hgb 12.6 (12.0-16.0) g/dl Hct 39.1 (37.0-47.0) % MCV 73.9 L (80.0-98.0) fL MCH 23.8 L (27.0-33.0) pg MCHC 32.2 (31.0-35.0) g/dl RDW 14.9 (11.0-16.0) % Plt Count 356 (160-400) X10*3/uL MPV 10.6 (9.4-12.3) fL Immature Gran % (Auto) 0.2 (0.0-0.4) % Neut % (Auto) 78.8 H (45-73) % Lymph % (Auto) 14.1 L (20-40) % [place] % (Auto) 6.0 (2-11) % Eos % (Auto) 0.4 (0-4) % Baso % (Auto) 0.5 (0-2) % Lymph # (Auto) 1.2 (1.2-4.9) X10*3/uL [place] # (Auto) 0.5 (0.1-1.2) X10*3/uL Eos # (Auto) 0.0 (0.0-0.4) X10*3/uL Baso # (Auto) 0.0 (0.0-0.2) X10*3/uL Abs Immat Gran (auto) 0.02 (0.00-0.03) X10*3/uL Absolute Neuts (auto) 6.5 (2.0-8.3) x10*3/uL Absolute Nucleated RBC 0.000 (0.0-0.012) X10*3/uL Nucleated RBC % (auto) 0.0 (0.0-0.2) /100WBC Sodium 140 (135-145) mmol/L Potassium 3.3 (3.3-5.1) mmol/L Chloride 105 (96-108) mmol/L Carbon Dioxide 24 (22-29) mmol/L Anion Gap 14 (12-20) BUN 7 L (9-16) mg/dL Creatinine 0.76 (0.5-1.4) mg/dL Estim Creat Clear Calc 115.1 Estimated GFR > 60 Random Glucose 133 H (60-115) mg/dL Calcium 9.1 (8.4-10.2) mg/dL Magnesium 2.1 (1.6-2.6) mg/dL Total Bilirubin 0.6 (0.0-1.0) mg/dL Direct Bilirubin 0.1 (0.0-0.5) mg/dL AST 40 H (5-31) U/L ALT 48 H (0-31) U/L Alkaline Phosphatase 66 (39-117) U/L Total Protein 8.0 (6.5-8.0) g/dL Albumin 4.6 (3.5-5.0) g/dL Beta HCG, Quant < 2 mIU/mL Urine Color [place] Urine Appearance Turbid Urine pH 6.5 (5.0-9.0) Ur Specific [place] 1.025 (1.005-1.025) Urine Protein 100 (2+) H (Neg-Trace) mg/dL Urine Glucose (UA) Negative (Negative) mg/dL Urine Ketones >=80 (Negative) mg/dL Urine Blood Large (3+) H (Negative) Urine Nitrite Positive H (Negative) Ur Leukocyte Esterase Trace H (Negative) Urine RBC >20 H (0-2) /HPF Urine WBC >50 H (0-5) /HPF Ur Squamous Epith Cells 11-20 (0-2) /HPF Urine Bacteria 3+ (None Seen) Hyaline Casts 6-10 (0-2) /LPF Medications Administered Discontinued Medications Generic Name Dose Route Start Last Admin Trade Name Freq PRN Reason Stop Dose Admin Ketorolac Tromethamine 30 mg 12/22/24 09:27 12/22/24 09:32 Ketorolac Tromethamine 30 Mg/Ml Vial IM 12/22/24 09:28 30 mg ONCE ONE Administration Ondansetron HCl 4 mg 12/22/24 09:27 12/22/24 09:32 Ondansetron Odt 4 Mg Tab.Thea FITZPATRICKU 12/22/24 09:28 4 mg ONCE ONE Administration Discharge Plan Discharge Clinical Impression: Calculi, ureter Patient Disposition: Home, Self-Care Instructions: Renal Colic (ED), Ureteral Stones (ED) Additional Instructions: Recommend follow-up with urologist. You will be discharged with pain medication and Flomax. Return to the ED immediately for any abdominal pain, nausea, vomiting, fever, chills, dysuria, hematuria, weakness, or any other concerning symptoms. Report Number: [id number]: Total DLP = 699.00 mGy-cm EXAMINATION: CT ABDOMEN AND PELVIS WITHOUT CONTRAST CLINICAL INFORMATION: Sudden onset of severe left flank pain, left UVJ stone DLP: 699 mGY*cm COMPARISON: None available. TECHNIQUE: Multidetector volumetric imaging was performed from the superior aspect of the liver through the pubic symphysis. Sagittal and coronal reformatted images were obtained on the technologist's workstation. This CT examination was performed using dose optimization techniques as appropriate, variously including the following: *Automated exposure control *Adjustment of mA and/or kV according to patient size (this includes techniques or standardized protocols for targeted exams where dose is matched to indication/reason for exam; i.e. extremities or head) *Use of iterative reconstruction technique FINDINGS: LUNG BASES: The visualized lung bases are unremarkable. LIVER, GALLBLADDER, AND BILIARY TREE: The liver is normal in size, shape, and attenuation. No focal hepatic lesion or biliary ductal dilatation is present. The gallbladder is surgically absent. There are clips in the gallbladder fossa. Extrahepatic bile duct diameter is 7 mm near the ampulla of [place]. PANCREAS: Unremarkable. SPLEEN: Unremarkable. ADRENAL GLANDS: Unremarkable. KIDNEYS AND URETERS: There is mild left hydronephrosis secondary to 3 mm stone at the left ureterovesicular junction. The right kidney is unremarkable. BLADDER: Unremarkable. GASTROINTESTINAL TRACT: The small and large bowel are unremarkable. The appendix is unremarkable. ABDOMINAL WALL: There is a small right periumbilical hernia containing normal density adipose tissue. LYMPH NODES: Normal. VASCULAR: Unremarkable. PELVIC VISCERA: Unremarkable. OSSEOUS STRUCTURES: Unremarkable. CT/CT abdomen pelvis wo IV con IMPRESSION: Mild left hydronephrosis related to a 3 mm left UVJ stone. Fleischner guidelines were followed. Electronically signed by: Sanchez Joe MD 12/22/2024 11:15 AM EDT RP Prescriptions: New tamsulosin [Flomax] 0.4 mg capsule 0.4 mg PO DAILY Qty: 10 0RF ketorolac 10 mg tablet 10 mg PO Q6H PRN (Reason: pain) Qty: 20 0RF Rx Instructions: received 30mg IM toradol in the ED cephalexin 500 mg capsule 500 mg PO QID Qty: 28 0RF No Action desogestrel-ethinyl estradiol [Apri] 0.15-0.03 mg tablet 1 tab PO DAILY 28 Days Qty: 28 2RF ferrous sulfate [Feosol] 325 mg (65 mg iron) tablet 325 mg PO DAILY [place] [facility] [place] Group, Urology] - 2 days Referral Note: Ureteral stone left UVJ 3 mm mild hydronephrosis Clinical Impression: Calculi, ureter Stand Alone Forms: Work/School Release Interventions: ED Discharge Assessment Last Done: 12/22/24 12:45 Discharge Date/Time: 12/22/24 12:46 Print Language: Luxembourgish
[2024-12-22 09:51] LABS: MANUAL DIFF FLAG NO
[2024-12-22 09:57] LABS: Hematocrit 39.1 % (37.0-47.0); Hemoglobin 12.6 g/dl (12.0-16.0); Imm Gran Abs Auto 0.02 X10*3/uL (0.00-0.03); Imm Gran Pct Auto 0.2 % (0.0-0.4); Lymphocytes Absolute Auto 1.2 X10*3/uL (1.2-4.9); Mean Corpuscular HGB Conc 32.2 g/dl (31.0-35.0); Mean Corpuscular Hemoglobin 23.8 pg (27.0-33.0); Mean Corpuscular Volume 73.9 fL (80.0-98.0); NRBC Abs Auto 0.000 X10*3/uL (0.0-0.012); NRBC Pct Auto 0.0 /100WBC (0.0-0.2); Platelet Count 356 X10*3/uL (160-400); Red Blood Count 5.29 X10*6/uL (4.20-5.50); White Blood Count 8.3 X10*3/uL (4.8-10.8)
[2024-12-22 10:25] LABS: Alanine Aminotransferase 48 U/L (0-31); Albumin Level 4.6 g/dL (3.5-5.0); Alkaline Phosphatase 66 U/L (39-117); Anion Gap 14 (12-20); Aspartate Amino Transferase 40 U/L (5-31); Blood Urea Nitrogen 7 mg/dL (9-16); Calcium 9.1 mg/dL (8.4-10.2); Carbon Dioxide 24 mmol/L (22-29); Chloride 105 mmol/L (96-108); Creatinine Clr Calc Pharmacy 115.1; Estimated Glomerular Filt Rate > 60; Magnesium 2.1 mg/dL (1.6-2.6); Potassium 3.3 mmol/L (3.3-5.1); Sodium 140 mmol/L (135-145); Total Protein 8.0 g/dL (6.5-8.0)
--- NOTE | 2024-12-22 12:02 | ED.GENADULT ---
HPI - General Adult General Chief complaint: Abdominal Pain Stated complaint: lower back pain vomiting Time Seen by Provider: 12/22/24 11:58 Source: patient Mode of arrival: ambulatory Limitations: no limitations History of Present Illness ED Provider: Rizwan Vieira HPI narrative: 34 yold female presents to the ED for flank pain radiating to abdomen with vomitting. patient deneies any fever, chills, or recent trauma. Related Data Home Medications ?Medication ?Instructions ?Recorded ?Confirmed ferrous sulfate 325 mg (65 mg 325 mg PO DAILY 01/06/24 03/13/24 iron) tablet (Feosol) Previous Rx's ?Medication ?Instructions ?Recorded desogestrel 0.15 mg-ethinyl 1 tab PO DAILY 28 days #28 tabs 09/02/24 estradiol 0.03 mg tablet (Apri) cephalexin 500 mg capsule 500 mg PO QID #28 caps 12/22/24 ketorolac 10 mg tablet 10 mg PO Q6H PRN pain #20 tabs 12/22/24 tamsulosin 0.4 mg capsule (Flomax) 0.4 mg PO DAILY #10 caps 12/22/24 Allergies Allergy/AdvReac Type Severity Reaction Status Date / Time No Known Allergies Allergy Verified 12/22/24 09:27 Review of Systems Review of Systems: fllank pain, abdominal pain, with vomitting Yes all other systems are reviewed and are negative PMFSH Past Medical History Medical History Asthma Surgical History Hx of cholecystectomy Family History Family History Father Asthma Mother Asthma Maternal Grandmother Diabetes HTN (hypertension) Maternal Grandfather Diabetes HTN (hypertension) Social History Social History Household Members: Children Housing: Apartment Are you a primary career advisor to a significant other at home: No Do you presently have visiting nurse or other home services: No Alcohol intake: never Patient Tobacco Use Status: Never used Tobacco Current occupational status: unemployed Sexual orientation: Straight/Heterosexual Gender identity: Female Physical Exam ED Vital Signs: Vital Signs - 24 hr 12/22/24 09:26 Temperature 98.3 F Pulse Rate 90 Respiratory Rate 20 Blood Pressure 154/107 H Pulse Oximetry 98 Oxygen Delivery Method Room Air BMI result Body Mass Index 36.3 Const General: cooperative, healthy appearing, comfortable, no acute distress, well developed, alert, awake and Physically active Orientation/consciousness: patient oriented x3 HENMT Head: Yes normal to inspection, Yes No palpable skull fracture present, Yes normocephalic, Yes atraumatic and No abrasion Eyes General: appearance normal, both eyes and all related structures Neck Neck: Yes normal visual inspection, Yes full ROM, Yes no lymphadenopathy, Yes no meningeal signs, Yes trachea midline, Yes supple, No anterior neck swelling, No lymphadenopathy and No tender Chest Chest palpation & inspection: normal inspection of the chest and normal palpation of entire chest wall Resp Effort & Inspection: normal respiratory effort and able to speak in complete sentences Auscultation: clear to auscultation bilaterally Cardio Jugular venous distension: no JVD Heart sounds: S1 normal heart sound present and S2 normal heart sound present GI Inspection: Yes normal to inspection Palpation (GI): Soft to palpation, not firm, Tenderness to palpation present (GI), no guarding and not rigid General: Yes CVA tenderness (bilataeral) Back/Spine/Pelvis Back: CVA tenderness (bilataeral) Skin General skin exam: no rashes or lesions noted, elasticity normal and turgor normal Neuro General: patient oriented x3, gait normal, tone normal, moves all extremities, Normal light touch and pain sensation, no meningeal signs, no focal motor deficits and CN's II-XI intact bilaterally Extrem General: Yes normal to inspection, Yes full ROM and Yes capillary refill normal Psych Appearance: grossly normal, well kempt and not disheveled Course Course Course Narrative: 3 Medications Administered Discontinued Medications Generic Name Dose Route Start Last Admin Trade Name Freq PRN Reason Stop Dose Admin Ketorolac Tromethamine 30 mg 12/22/24 09:27 12/22/24 09:32 Ketorolac Tromethamine 30 Mg/Ml Vial IM 12/22/24 09:28 30 mg ONCE ONE Administration Ondansetron HCl 4 mg 12/22/24 09:27 12/22/24 09:32 Ondansetron Odt 4 Mg Tab.Rapdis TRANSLINGU 12/22/24 09:28 4 mg ONCE ONE Administration Medical Decision Making Medical Decision Making MDM Narrative: 34 yold female with PCOS, uterine myoma, abnormal uterine bleeding presents to the ED for left flank pain radiating to the abdomen with some nausea and vomiting. Positive for left flank CVA tenderness on palpation. Labs are normal negative for elevated white blood cell count. Kidney functions normal. Negative . CAT scan shows left UVJ stone with mild hydronephrosis. Pending UA. Patient given Toradol and Zofran Differential Diagnosis Differential Diagnoses: The differential diagnosis associated with the presentation includes (Pyelonephritis, kidney stones, UTI) Admission/Observation Consideration of admission/observation: Escalation of care including admission/observation considered Lab Data [facility] Lab Attestation statement: I reviewed the patient's lab results. 12/22/24 09:45 12/22/24 09:45 Labs: Lab Results 12/22/24 12/22/24 Range/Units 09:45 12:02 WBC 8.3 (4.8-10.8) X10*3/uL RBC 5.29 (4.20-5.50) X10*6/uL Hgb 12.6 (12.0-16.0) g/dl Hct 39.1 (37.0-47.0) % MCV 73.9 L (80.0-98.0) fL MCH 23.8 L (27.0-33.0) pg MCHC 32.2 (31.0-35.0) g/dl RDW 14.9 (11.0-16.0) % Plt Count 356 (160-400) X10*3/uL MPV 10.6 (9.4-12.3) fL Immature Gran % (Auto) 0.2 (0.0-0.4) % Neut % (Auto) 78.8 H (45-73) % Lymph % (Auto) 14.1 L (20-40) % [place] % (Auto) 6.0 (2-11) % Eos % (Auto) 0.4 (0-4) % Baso % (Auto) 0.5 (0-2) % Lymph # (Auto) 1.2 (1.2-4.9) X10*3/uL [place] # (Auto) 0.5 (0.1-1.2) X10*3/uL Eos # (Auto) 0.0 (0.0-0.4) X10*3/uL Baso # (Auto) 0.0 (0.0-0.2) X10*3/uL Abs Immat Gran (auto) 0.02 (0.00-0.03) X10*3/uL Absolute Neuts (auto) 6.5 (2.0-8.3) x10*3/uL Absolute Nucleated RBC 0.000 (0.0-0.012) X10*3/uL Nucleated RBC % (auto) 0.0 (0.0-0.2) /100WBC Sodium 140 (135-145) mmol/L Potassium 3.3 (3.3-5.1) mmol/L Chloride 105 (96-108) mmol/L Carbon Dioxide 24 (22-29) mmol/L Anion Gap 14 (12-20) BUN 7 L (9-16) mg/dL Creatinine 0.76 (0.5-1.4) mg/dL Estim Creat Clear Calc 115.1 Estimated GFR > 60 Random Glucose 133 H (60-115) mg/dL Calcium 9.1 (8.4-10.2) mg/dL Magnesium 2.1 (1.6-2.6) mg/dL Total Bilirubin 0.6 (0.0-1.0) mg/dL Direct Bilirubin 0.1 (0.0-0.5) mg/dL AST 40 H (5-31) U/L ALT 48 H (0-31) U/L Alkaline Phosphatase 66 (39-117) U/L Total Protein 8.0 (6.5-8.0) g/dL Albumin 4.6 (3.5-5.0) g/dL Beta HCG, Quant < 2 mIU/mL Urine Color [place] Urine Appearance Turbid Urine pH 6.5 (5.0-9.0) Ur Specific [place] 1.025 (1.005-1.025) Urine Protein 100 (2+) H (Neg-Trace) mg/dL Urine Glucose (UA) Negative (Negative) mg/dL Urine Ketones >=80 (Negative) mg/dL Urine Blood Large (3+) H (Negative) Urine Nitrite Positive H (Negative) Ur Leukocyte Esterase Trace H (Negative) Urine RBC >20 H (0-2) /HPF Urine WBC >50 H (0-5) /HPF Ur Squamous Epith Cells 11-20 (0-2) /HPF Urine Bacteria 3+ (None Seen) Hyaline Casts 6-10 (0-2) /LPF Independent Interpretation I performed an independent interpretation of an: CT Scan Independent Historian Clinical information obtained from an independent historian. History obtained from or confirmed by: Other (Patient is) Prescription Management I considered prescription management with: Pain Medication Discharge Plan Discharge Clinical Impression: Calculi, ureter Patient Disposition: Home, Self-Care Instructions: Renal Colic (ED), Ureteral Stones (ED) Additional Instructions: Recommend follow-up with urologist. You will be discharged with pain medication and Flomax. Return to the ED immediately for any abdominal pain, nausea, vomiting, fever, chills, dysuria, hematuria, weakness, or any other concerning symptoms. Report Number: [id number]: Total DLP = 699.00 mGy-cm EXAMINATION: CT ABDOMEN AND PELVIS WITHOUT CONTRAST CLINICAL INFORMATION: Sudden onset of severe left flank pain, left UVJ stone DLP: 699 mGY*cm COMPARISON: None available. TECHNIQUE: Multidetector volumetric imaging was performed from the superior aspect of the liver through the pubic symphysis. Sagittal and coronal reformatted images were obtained on the technologist's workstation. This CT examination was performed using dose optimization techniques as appropriate, variously including the following: *Automated exposure control *Adjustment of mA and/or kV according to patient size (this includes techniques or standardized protocols for targeted exams where dose is matched to indication/reason for exam; i.e. extremities or head) *Use of iterative reconstruction technique FINDINGS: LUNG BASES: The visualized lung bases are unremarkable. LIVER, GALLBLADDER, AND BILIARY TREE: The liver is normal in size, shape, and attenuation. No focal hepatic lesion or biliary ductal dilatation is present. The gallbladder is surgically absent. There are clips in the gallbladder fossa. Extrahepatic bile duct diameter is 7 mm near the ampulla of [place]. PANCREAS: Unremarkable. SPLEEN: Unremarkable. ADRENAL GLANDS: Unremarkable. KIDNEYS AND URETERS: There is mild left hydronephrosis secondary to 3 mm stone at the left ureterovesicular junction. The right kidney is unremarkable. BLADDER: Unremarkable. GASTROINTESTINAL TRACT: The small and large bowel are unremarkable. The appendix is unremarkable. ABDOMINAL WALL: There is a small right periumbilical hernia containing normal density adipose tissue. LYMPH NODES: Normal. VASCULAR: Unremarkable. PELVIC VISCERA: Unremarkable. OSSEOUS STRUCTURES: Unremarkable. CT/CT abdomen pelvis wo IV con IMPRESSION: Mild left hydronephrosis related to a 3 mm left UVJ stone. Fleischner guidelines were followed. Electronically signed by: Sanchez Joe MD 12/22/2024 11:15 AM EDT RP Prescriptions: New tamsulosin [Flomax] 0.4 mg capsule 0.4 mg PO DAILY Qty: 10 0RF ketorolac 10 mg tablet 10 mg PO Q6H PRN (Reason: pain) Qty: 20 0RF Rx Instructions: received 30mg IM toradol in the ED cephalexin 500 mg capsule 500 mg PO QID Qty: 28 0RF No Action desogestrel-ethinyl estradiol [Apri] 0.15-0.03 mg tablet 1 tab PO DAILY 28 Days Qty: 28 2RF ferrous sulfate [Feosol] 325 mg (65 mg iron) tablet 325 mg PO DAILY Referrals: [facility] [place] [facility] [Provider Group, Urology] - 2 days Referral Note: Ureteral stone left UVJ 3 mm mild hydronephrosis Clinical Impression: Calculi, ureter Stand Alone Forms: Work/School Release Interventions: ED Discharge Assessment Last Done: 12/22/24 12:45 Discharge Date/Time: 12/22/24 12:46 Print Language: French
[2024-12-22 12:14] LABS: Appearance Urine Turbid; Glucose Urine UA Negative (Negative); PH 6.5 (5.0-9.0); Specific Gravity - Urine 1.025 (1.005-1.025); UMIC TRIGGER UACC YES
[2024-12-22 12:24] LABS: UACC Culture Trigger YES
[2024-12-22 12:45] VITALS: BP 152/98; PULSE 89; RESP 20; TEMP 36.6; O2SAT 98
--- OUTSIDE RECORDS SUMMARY | 2024-12-22 13:11 | XMS_ITS | Clinical Summary ---
Author Organization [employer] Address [address] [place] [address] [address] [place] [address] Care Team Providers Care Cosmetic Surgeon Name Role Phone Unavailable Primary Care Provider Unavailabl e Allergies No known active allergies Medications albuterol 108 (90 Base) MCG/ACT inhalerIndicatio ns:Mild intermittent asthma without complication Inhale 2 puffs every 4 (four) hours if needed for wheezing. 18 g 5 11/04/19 26 Active cromolyn (NasalCrom) 5.2 MG/ACT nasal sprayIndications :Viral upper respiratory infection Administer 1 spray into each nostril 3 times daily. 26 mL 5 11/04/19 26 Active Acetaminophen 500 MG capsuleIndicatio ns:Viral upper respiratory infection Take 1 capsule (500 mg) by mouth every 8 (eight) hours if needed for moderate pain or fever. 30 capsule 5 12/04/19 25 Active Problems Problem Noted Date Diagnosed Date Viral upper respiratory infection 11/03/2024 Assessment & Plan (11/03/2024 5:27 PM EDT): No evidence of respiratory distress. Symptoms mild. No evidence of dehydration. -Recommended supportive care. -Prescribed cromolyn (NasalCrom) 5.2 MG/ACT nasal spray -Prescribed Acetaminophen 500 MG -Isolation recommendations discussed. -ER precautions discussed. -Seek medical attention for worsening symptoms. Mild intermittent asthma without complication Assessment & Plan (11/03/2024 5:27 PM EDT): Controlled. -Refilled albuterol 108 (90 Base) MCG/ACT inhaler Encounters Date Type Department Care Team Description 12/22/2024 Orders Only GENERIC EXTERNAL DATA DEPARTMENT Provider, Generic External Data 11/03/2024 5:20 PM EDT Office Visit [facility] [address] [address] Abby Fox MD Viral upper respiratory infection (Primary Dx); Mild intermittent asthma without complication 11/03/2024 Travel from Last 3 Months Social History Tobacco [...] Sign Reading Time Taken Comments Blood Pressure 130/80 11/03/2024 5:13 PM EDT Pulse 85 11/03/2024 5:13 PM EDT Temperature 37.2 C (99 F) 11/03/2024 5:13 PM EDT Respiratory Rate 20 11/03/2024 5:13 PM EDT Oxygen Saturation 98% 11/03/2024 5:13 PM EDT Inhaled Oxygen Concentration - - Weight 106 kg (233 lb) 11/03/2024 5:13 PM EDT Height 160 cm (5' 3 ) 11/18/2023 1:15 PM EDT Body Mass Index 41.27 11/18/2023 1:15 PM EDT Plan of Treatment Health Maintenance Due Date Last Done Comments Depression Screening 1990 HIV Screening 1990 SDOH Screening 1992 Disability Screening 1992 Alcohol/Substance Use Screening 2004 Family Planning (PISQ) 11/13/2007 HPV Vaccines (1 - 3-dose series) 11/13/2007 Hepatitis C Screening 2010 DTaP/Tdap/Td Vaccines (1 - Tdap) 11/13/2011 Hepatitis B Vaccines (1 of 3 - 19+ 3-dose series) 11/13/2011 Pneumococcal Vaccine: Pediat rics (0 to 5 Years) and At-Risk Patients (6 to 49) Years (1 of 2 - PCV) 11/13/2011 COVID-19 Vaccine ( - 2023-2 5 season) 2024 Tobacco Screening 11/17/2024 11/18/2023 Influenza Vaccine (#1) 2025 Cervical Cancer Screening 11/17/2028 HPV/Cotest 11/17/2028 11/18/2023 [...] patient's age to complete this topic Meningococcal B Vaccine Aged Out No l onger eligible based on patient's age to complete [...] Procedure Name Priority Date/Time Associated Diagnosis Comments URINALYSIS, COMPLETE, WITH REFLEX TO CULTURE Routine 12/22/2024 12:[address] ABDOMEN PELVIS WO CONTRAST Routine 12/22/2024 9:49 AM EDT HCG, TOTAL, QN Routine 12/22/2024 9:45 AM EDT MAGNESIUM Routine 12/22/2024 9:45 AM EDT BASIC METABOLIC PANEL Routine 12/22/2024 9:45 AM EDT HEPATIC FUNCTION PANEL Routine 12/22/2024 9:45 AM EDT CBC WITH AUTO DIFFERENTIAL Routine 12/22/2024 9:45 AM EDT POCT INFLUENZA B (ID NOW RAPID MOLECULAR) Routine 11/03/2024 5:34 PM EDT Viral upper respiratory infection POCT INFLUENZA A (ID NOW RAPID MOLECULAR) Routine 11/03/2024 5:34 PM EDT Viral upper respiratory infection POCT RAPID COVID ANTIGEN Routine 11/03/2024 5:34 PM EDT Viral upper respiratory infection POC FARMER ID NOW STREP A Routine 11/03/2024 5:33 PM EDT Viral upper respiratory infection HPV MRNA E6/E7 REFLEX TO HPV 16, 18/45 Routine 11/18/2023 1:29 PM EDT PAP SMEAR Routine 11/18/2023 1:29 PM EDT from Last 3 Months or Most Recently Relevant to Health Maintenance Results * (ABNORMAL) Urinalysis, Complete, with Reflex to Culture (12/22/2024 12:02 PM EDT) Color Urine Page [facility] Appearance Urine Turbid [facility] PH 6.5 5.0 - 9.0 [facility] Glucose Urine UA Negative Negative mg/dL [facility] Urine Blood Large (3+)(A) Negative [facility] Specific [place] - Urine 1.025 1.005 - 1.025 [facility] Urine Protein 100 (2+)(A) Neg-Trace mg/dL [facility] Urine Ketones >=80 Negative mg/dL [facility] Nitrite Urine Positive(A) Negative [facility] Leukocyte Esterase Urine Trace(A) Negative [facility] RBC Urine >20(A) 0 - 2 /HPF [facility] Urine WBC >50(A) 0 - 5 /HPF [facility] Urine Squamous Epithelial Cell 11-20 0 - 2 /HPF [facility] Urine Bacteria 3+ None Seen [facility] Hyaline Casts, Urine 6-10 0 - 2 /LPF [facility] 12/22/2024 12:0 2 PM EDT 12/22/2024 12:05 PM EDT Narrative [facility] - 12/22/2024 12:24 PM EDT [id number], Clean Catch us Generic External Data Provider LAB URINE ORDERAB LES Final Result Performing Organization Address City/State/[facility] Co de Phone Number [facility] [address] [place] [phone] * CT Abdomen Pelvis w/o Contrast (12/22/2024 9:49 AM EDT) Anatomical Region Laterality Modality Body, Pelvis, Abdomen Computed T omography 12/22/2024 9:49 AM EDT Narrative 12/22/2024 11:18 AM EDT [address] [address] [address] Scan Report Signed Patient: Ghislaine Martinez MR#: [id number] : 1990 Acct:[id number] Age/Sex: 34 / F ADM Date: 12/22/24 Loc: .ED Attending Dr: Ordering Physician: Lisa Lopez DO Date of Service: 12/22/24 Procedure(s): CT abdomen pelvis wo IV con Accession Number(s): [id number] cc: Lisa Lopez DO; [facility] Report Number: [id number]: Total DLP = 699.00 mGy-cm EXAMINATION: CT ABDOMEN AND PELVIS WITHOUT CONTRAST CLINICAL INFORMATION: Sudden onset of severe left flank pain, left UVJ stone DLP: 699 mGY*cm COMPARISON: None available. TECHNIQUE: Multidetector volumetric imaging was performed from the superior aspect of the liver through the pubic symphysis. Sagittal and coronal reformatted images were obtained on the technologist's workstation. This CT examination was performed using dose optimization techniques as appropriate, variously including the following: *Automated exposure control *Adjustment of mA and/or kV according to patient size (this includes techniques or standardized protocols for targeted exams where dose is matched to indication/reason for exam; i.e. extremities or head) *Use of iterative reconstruction technique FINDINGS: LUNG BASES: The visualized lung bases are unremarkable. LIVER, GALLBLADDER, AND BILIARY TREE: The liver is normal in size, shape, and attenuation. No focal hepatic lesion or biliary ductal dilatation is present. The gallbladder is surgically absent. There are clips in the gallbladder fossa. Extrahepatic bile duct diameter is 7 mm near the ampulla of Casanova. PANCREAS: Unremarkable. SPLEEN: Unremarkable. ADRENAL GLANDS: Unremarkable. KIDNEYS AND URETERS: There is mild left hydronephrosis secondary to 3 mm stone at the left ureterovesicular junction. The right kidney is unremarkable. BLADDER: Unremarkable. GASTROINTESTINAL TRACT: The small and large bowel are unremarkable. The appendix is unremarkable. ABDOMINAL WALL: There is a small right periumbilical hernia containing normal density adipose tissue. LYMPH NODES: Normal. VASCULAR: Unremarkable. PELVIC VISCERA: Unremarkable. OSSEOUS STRUCTURES: Unremarkable. CT/CT abdomen pelvis wo IV con IMPRESSION: Mild left hydronephrosis related to a 3 mm left UVJ stone. Fleischner guidelines were followed. Electronically signed by: Sanchez Joe MD 12/22/2024 11:15 AM EDT Dictated By: Sanchez Joe MD Signed By: <Electronically signed by Sanchez Joe MD in OV> 12/22/24 1115 DD/ 0949 TD/TT: 12/22/24 1054 Elevator Starter: Procedure Note Donotuseinterpreter, Image - 12/22/[address] [address] [address] Scan Report Signed Patient: Jyothi Martinez#: [id number] : 1990Acct:[id number] Age/Sex: 34 / FADM Date: 12/22/24 Loc: HO.ED Attending Dr: Ordering Physician: Lisa Lopez DO Date of Service: 12/22/24 Procedure(s): CT abdomen pelvis wo IV con Accession Number(s): [id number] cc: Lisa Lopez ; [facility] Report Number: [id number]: Total DLP = 699.00 mGy-cm EXAMINATION: CT ABDOMEN AND PELVIS WITHOUT CONTRAST CLINICAL INFORMATION: Sudden onset of severe left flank pain, left UVJ stone DLP: 699 mGY*cm COMPARISON: None available. TECHNIQUE: Multidetector volumetric imaging was performed from the superior aspect of the liver through the pubic symphysis. Sagittal and coronal reformatted images were obtained on the technologist's workstation. This CT examination was performed using dose optimization techniques as appropriate, variously including the following: *Automated exposure control *Adjustment of mA and/or kV according to patient size (this includes techniques or standardized protocols for targeted exams where dose is matched to indication/reason for exam; i.e. extremities or head) *Use of iterative reconstruction technique FINDINGS: LUNG BASES: The visualized lung bases are unremarkable. LIVER, GALLBLADDER, AND BILIARY TREE: The liver is normal in size, shape, and attenuation. No focal hepatic lesion or biliary ductal dilatation is present. The gallbladder is surgically absent. There are clips in the gallbladder fossa. Extrahepatic bile duct diameter is 7 mm near the ampulla of Jerome. PANCREAS: Unremarkable. SPLEEN: Unremarkable. ADRENAL GLANDS: Unremarkable. KIDNEYS AND URETERS: There is mild left hydronephrosis secondary to 3 mm stone at the left ureterovesicular junction. The right kidney is unremarkable. BLADDER: Unremarkable. GASTROINTESTINAL TRACT: The small and large bowel are unremarkable. The appendix is unremarkable. ABDOMINAL WALL: There is a small right periumbilical hernia containing normal density adipose tissue. LYMPH NODES: Normal. VASCULAR: Unremarkable. PELVIC VISCERA: Unremarkable. OSSEOUS STRUCTURES: Unremarkable. CT/CT abdomen pelvis wo IV con IMPRESSION: Mild left hydronephrosis related to a 3 mm left UVJ stone. Fleischner guidelines were followed. Electronically signed by: Sanchez Joe MD 12/22/2024 11:15 AM EDT Dictated By: Sanchez Joe MD Signed By: <Electronically signed by Sanchez Joe MD in OV> 12/22/24 1115 DD/ 0949 TD/TT: 12/22/24 1054 Elevator Starter: [facility] External Provider IMG CT PROCEDURES Edited Result - Final * (ABNORMAL) CBC auto differential (12/22/2024 9:45 AM EDT) White Blood Count 8.3 4.8 - 10.8 X10*3/uL [facility] Red Blood Count 5.29 4.20 - 5.50 X10*6/uL [facility] Hemoglobin 12.6 12.0 - 16.0 g/dl [facility] Hematocrit 39.1 37.0 - 47.0 % [facility] Mean Corpuscular Volume 73.9(L) 80.0 - 98.0 fL [facility] Mean Corpuscular Hemoglobin 23.8(L) 27.0 - 33.0 pg [facility] Mean Corpuscular HGB Conc 32.2 31.0 - 35.0 g/dl [facility] Red Cell Distribution Width 14.9 11.0 - 16.0 % [facility] Platelet Count 356 160 - 400 X10*3/uL [facility] Mean Platelet Volume 10.6 9.4 - 12.3 fL [facility] Neutrophils Percent Auto 78.8(H) 45 - 73 % [facility] Imm Gran Pct Auto 0.2 0.0 - 0.4 % [facility] Lymphocytes Percent Auto 14.1(L) 20 - 40 % [facility] Monocytes Percent Auto 6.0 2 - 11 % [facility] Eosinophils Percent Auto 0.4 0 - 4 % [facility] Basophils Percent Auto 0.5 0 - 2 % [facility] NRBC Pct Auto 0.0 0.0 - 0.2 /100WBC [facility] Neutrophils Absolute Auto 6.5 2.0 - 8.3 x10*3/uL [facility] Imm Gran Abs Auto 0.02 0.00 - 0.03 X10*3/uL [facility] Lymphocytes Absolute Auto 1.2 1.2 - 4.9 X10*3/uL [facility] Monocytes Absolute Auto 0.5 0.1 - 1.2 X10*3/uL [facility] Eosinophils Absolute Auto 0.0 0.0 - 0.4 X10*3/uL [facility] Basophils Absolute Auto 0.0 0.0 - 0.2 X10*3/uL [facility] NRBC Abs Auto 0.000 0.0 - 0.012 X10*3/uL [facility] 12/22/2024 9:45 AM EDT 12/22/2024 9:50 AM EDT us Generic External Data Provider LAB BLOOD ORDERAB LES Final Result Performing Organization Address [facility] Co de Phone Number [facility] [address] [place] [phone] * hCG, Total, Quantitative (12/22/2024 9:45 AM EDT) HCG Quantitative <2 mIU/mL [facility] Comment:Weeks post LMP Appro ximate hCG(Last Menstrual Period) Range (mIU/ml)3 - 4 weeks 9 - 1304 - 5 weeks 75 - 2,6005 - 6 weeks 850 - 20,8006 - 7 weeks 4000 - 100,2007 - 12 weeks 11,500 - 289,92095 - 16 weeks 18,300 - 137,94890 - 29 weeks (2nd trimester) 1,400 - 53,89218 - 41 weeks (3rd trimester) 940 - 60,000The Farmer B- hCG assay is used for the early detection ofpregnancy; it cannot be used to diagnose any conditionunrelated to . If a B-hCG level is not supportedby the clinical evidence, results should be confirmed by analternative method (qualitative urine hCG, for example). 12/22/2024 9:45 AM EDT 12/22/2024 9:50 AM EDT us Generic External Data Provider LAB BLOOD ORDERAB LES Final Result Performing Organization Address [facility]/ZIP Co de Phone Number [facility] [address] [place] [phone] * Magnesium (12/22/2024 9:45 AM EDT) [facility] Magnesium 2.1 1.6 - 2.6 mg/dL [facility] 12/22/2024 9:45 AM EDT 12/22/2024 9:50 AM EDT Generic External Data Provider LAB BLOOD ORDERAB LES Final Result Performing Organization Address [facility] Co de Phone Number [facility] [address] [place] [phone] * (ABNORMAL) Hepatic Function Panel (12/22/2024 9:45 AM EDT) [facility] Bilirubin, Total 0.6 0.0 - 1.0 mg/dL [facility] Bilirubin, Direct 0.1 0.0 - 0.5 mg/dL [facility] Aspartate Amino Transferase 40(H) 5 - 31 U/L [facility] Comment:Slight Hemolysis.Int erpret result with caution. Alanine Aminotransferase 48(H) 0 - 31 U/L [facility] Total Protein 8.0 6.5 - 8.0 g/dL [facility] Albumin Level 4.6 3.5 - 5.0 g/dL [facility] Alkaline Phosphatase 66 39 - 117 U/L [facility] 12/22/2024 9:45 AM EDT 12/22/2024 9:50 AM EDT Generic External Data Provider LAB BLOOD ORDERAB LES Final Result Performing Organization Address City/[facility]/ZIP Co de Phone Number [facility] [address] [place] [phone] * (ABNORMAL) Basic Metabolic Panel (12/22/2024 9:45 AM EDT) [facility] Sodium 140 135 - 145 mmol/L [facility] Potassium 3.3 3.3 - 5.1 mmol/L [facility] Comment:Slight Hemolysis.Int erpret result with caution. Chloride 105 96 - 108 mmol/L [facility] Carbon Dioxide 24 22 - 29 mmol/L [facility] Anion Gap 14 12 - 20 [facility] Urea Nitrogen (BUN) 7(L) 9 - 16 mg/dL [facility] Creatinine, Serum 0.76 0.5 - 1.4 mg/dL [facility] Creatinine Clr Calc Pharmacy 115.1 [facility] Comment:Provided height and weight: 160.02 cm,93 kg.eGFR (calculated from the MDRD study equation) and eCrCl(calculated from the Cockcroft-Gault equation) are based ondifferent parameters and may not yield comparable results.If eCrCl result is absurd, please check patient'sheight/weight. Estimated Glomerular Filt Rate >60 [facility] Comment:Chronic Kidney Disea se: Estimated GFR < 60 mL/min/1.27s1Qygter Kidney Disease: Estimated GFR < 15 mL/min/1.73m2 Glucose 133(H) 60 - 115 mg/dL [facility] Calcium 9.1 8.4 - 10.2 mg/dL [facility] 12/22/2024 9:45 AM EDT 12/22/2024 9:50 AM EDT us Generic External Data Provider LAB BLOOD ORDERAB LES Final Result [facility] [address] [place] [phone] * POCT Rapid Influenza B FARMER ID NOW (11/03/2024 5:34 PM EDT) Influenza B Negative Negative, Indeterminate [facility] QC Media Lot # [id number] [facility] Lot# Expiration Date [facility] Swab 11/03/2024 5:34 PM EDT us Abby Fox MD POINT OF CARE TEST ENTER/E DIT ORDERABLES Final Result Performing Organization Address City/[facility]/ZIP Co de Phone Number [facility] [address] [place] [phone] * POCT Rapid Influenza A FARMER ID NOW (11/03/2024 5:34 PM EDT) [facility] Influenza A Negative Negative, Indeterminate [facility] QC Media Lot # [id number] [facility] Lot# Expiration Date [facility] Swab 11/03/2024 5:34 PM EDT Result [facility] Abby Fox MD POINT OF CARE TEST ENTER/E DIT ORDERABLES Final Result Performing Organization Address [facility] Co de Phone Number [facility] [address] [place] [phone] * POCT Rapid COVID-19 Binax NOW (11/03/2024 5:34 PM EDT) [facility] Rapid COVID Ag Negative QC Media Lot # [id number] Lot# Expiration Date Swab 11/03/2024 5:34 PM EDT Result [facility] Abby Fox MD POINT OF CARE TEST ENTER/E DIT ORDERABLES Final Result * POCT Rapid Strep A FARMER ID NOW (11/03/2024 5:33 PM EDT) [facility] Rapid Strep A Screen Negative Negative, None Detected QC Media Lot # [id number] Lot# Expiration Date Swab 11/03/2024 5:33 PM EDT Result [facility] Abby Fox MD POINT OF CARE TEST ENTER/E DIT ORDERABLES Final Result * HPV mRNA E6/E7 w/Reflex to HPV Genotypes 16, 18/45 (11/18/2023 1:29 PM EDT) HPV nRNA E6/E7 Not Detected Not Detected [facility] Comment:Methodology: Transcr iption-Mediated AmplificationThis assay detects E6/E7 viral messenger RNA (mRNA) from 14high-risk HPV types (16,18,31,33,35,39,45,51,52,56,58,59,66,68).Cervical sources are required for HPV testing.If a vaginal source from a patient who has had atotal hysterectomy with removal of cervix wassubmitted, please contact the testing laboratoryfor alternative testing options.For additional information, please refer [email or web address]/faq/VHG465d3(This link if provided for information/educational purposes only.)THIS TEST WAS PERFORMED AT:[facility] [place] [phone] CANO MD HPV mRNA E6/E7 TNP [facility] HPV 16 RNA [facility] HPV 18/45 RNA [facility] 11/18/2023 1:29 PM EDT 11/27/2023 12:30 PM EDT us [place] Cade [facility] CYTOLOGY ORDERABLES F inal Result [facility] [address] [place] [phone] * Pap Smear (11/18/2023 1:29 PM EDT) 11/18/2023 1:29 PM EDT 11/19/2023 9:10 AM EDT Narrative [facility] - 12/02/2023 5:17 PM EDT ----- ------- Name: Ghislaine Martinez Age/Sex: 33/F : 1990 Unit#: [id number] Attend Dr: HOUSTON CADE CNM Re11/18/23 Status: DEP [facility]ch[facility] ----- ------- SPEC : [id number] RECD: 11/19/23 STATUS: JANESSA SARABIA NUM: [id number] ALFREDO: 11/18/23-1329 [facility] DR: HOUSTON CADE CNM ENTERED: 11/19/23 SP TYPE: Pap Smr OTHR DR: ORDERED: Pap Smear Interpretation Satisfactory for evaluation. Negative for intraepithelial lesion or malignancy. Mild inflammation. HPV mRNA E6/E7: NOT DETECTED This assay detects E6/E7 viral messenger RNA (mRNA) from 14 high-risk HPV types (16, 18, 31, 33, 35, 39, 45, 51, 52, 56, 58, 59, 66, 68) HPV testing performed by [facility], [place], [place]. See reference laboratory portion of the EMR for entire report. Clinical Information LMP: 11/15/2023 Previous PAP test: Unknown date/findings Other history: Abnormal uterine bleeding Material Received ThinPrep-Vaginal/Cervical ----- ------- Signed (signature on file) Cheryl Salgado 12/02/23 0674 ----- ------- END OF REPORT [place] Cade [facility] CYTOLOGY ORDERABLES F inal Result [facility] [address] [place] [address] [phone] from Last 3 Months or Most Recently Relevant to Health Maintenance Insurance [facility] C3 [place]
--- OUTSIDE RECORDS SUMMARY | 2024-12-22 13:11 | XMS_ITS | Clinical Summary ---
Author Organization [facility] Address [address] [place] [address] Phone Care Team Providers Care Acetylene Burner Name Role Phone Hardy Marquez MD Primary Care Provider Medications albuterol HFA (PROAIR HFA ; PROVENTIL HFA ; VENTOLIN HFA) 90 mcg/actuation inhaler Inhale 2 puffs by mouth Every 4 hours as needed. 5 11/04/19 26 Active cromolyn (NASALCHROM) 5.2 mg/spray (4 %) nasal spray Administer 1 spray into each nostril 3 times daily. 5 11/04/19 26 Active Active Problems Problem Noted Date Diagnosed Date Mild intermittent asthma without complication Resolved Problems Problem Noted Date Diagnosed Date Resolved Date Viral upper respiratory infection 11/03/2024 12/09/2024 Encounters Date Type Department Care Team Description 10/14/2024 Telephone Adult Medicine [address] [phone] Hardy Marquez MD Appointment Cancelled 10/09/2024 Telephone Adult Medicine [address] [phone] Hardy Marquez MD appointment from Last 3 Months Medical History Medical History Date Comments Viral upper respiratory infection 11/03/2024 Social History Tobacco Use Types Packs/Day Years Used Date Smoking Tobacco: Never Assessed Comments Unknown Sex and Gender Information Value Date Recorded Sex Assigned at Not on file Legal Sex Female 12:05 PM EDT Gender Identity Not on file Sexual Orientation Not on file Obstetrics History Plan of Treatment Health Maintenance Due Date Last Done Comments DTaP,Tdap,and Td Vaccines (1 - Tdap) 11/13/2011 Hepatitis B Vaccines (1 of 3 - 19+ 3-dose series) 11/13/2011 Pneumococcal Vaccine: Pediat rics (0 to 5 Years) and At-Risk Patients (6 to 49 Years) (1 of 2 - PCV) 11/13/2011 COVID-19 Vaccine (1 - 2023-2 5 season) 2024 Depression Screening 10/10/2024 HIV Screening 10/10/2024 Hepatitis C Screening 10/10/2024 Social Influencers of Health Screening 10/10/2024 Influenza Vaccine (#1) 2025 Cervical Cancer Screening: P ap Smear 11/17/2026 11/18/2023 HIB Vaccines Aged Out No longer eligi [...] on patient's age to complete this topic MMR Vaccines Aged Out No longer eligi ble based on patient's age to complete this topic Meningococcal ACWY Vaccine Aged Out N o longer eligible based on patient's age to complete this topic Meningococcal B Vaccine Aged Out No l onger eligible based on patient's age to complete this topic RSV Immunization Patients Un elsy 20 months Aged Out No longer eligible b ased on patient's age to complete this topic Varicella Vaccines Aged Out No longer eligible based on patient's age to complete this topic Insurance MEDICAID - [place] Care Teams Acetylene Burner Relationship Specialty Start Date End Date Hardy Marquez MD [address] [place] [address] PCP - General Internal Medicine 10/09/24
== END 2024-12-22 12:46 | disposition home or self-care (01) ==
PROVIDERS: Emergency Medicine; Emergency Provider Emergency Medicine Emergency Medical Services
DX: N13.2 Hydronephrosis with renal and ureteral calculous obstruction (principal)
CPT/HCPCS: 36415; 74176; 80048; 80076; 81001; 83735; 84702; 85025; 87086; 87147; 96372; 99283; 99284; J1885

== ENCOUNTER → 2024-12-22 09:27 | Outpatient (BNV) | payer MEDICAID, SELFPAY | PROVIDERS: Emergency Provider Emergency Medicine Emergency Medical Services; Visit Provider Radiology Diagnostic Radiology | DX: N13.2 Hydronephrosis with renal and ureteral calculous obstruction (principal) | CPT/HCPCS: 74176 ==

== ENCOUNTER 2025-01-13 07:28 | Outpatient (REF) | payer MEDICAID, SELFPAY | END 2025-01-13 07:29 | disposition home or self-care (01) | LOC: HO.LNP 07:28 | PROVIDERS: PCP Internal Medicine Geriatric Medicine; Visit Provider Obstetrics & Gynecology | DX: N93.9 Abnormal uterine and vaginal bleeding, unspecified (principal); Z32.02 Encounter for pregnancy test, result negative | CPT/HCPCS: 58100; 81025; 88305 ==

== ENCOUNTER 2025-01-13 07:28 | Outpatient (AMB) | payer MEDICAID, SELFPAY ==
--- OUTSIDE RECORDS SUMMARY | 2025-01-13 07:30 | XMS_ITS | Clinical Summary ---
Author Organization [address] [facility] Address [address] [place] [address] Phone Care Team Providers Care Bisque Kiln Placer Name Role Phone Hardy Marquez MD Primary [...] Department Care Team Description 10/14/2024 Telephone Adult [address] [phone] Hardy Marquez MD Appointment Cancelled from Last 3 Months Medical History Medical [...] - 2023-2 5 season) 2024 Depression Screening 06/17/2024 HIV Screening 10/10/2024 Hepatitis C Screening 10/10/2024 [...] patient's age to complete this topic Insurance [address] [place] [id number] MEDICAID - [place] Care Teams Bisque Kiln Placer Relationship Specialty Start Date End Date Jimmy, Hardy Nabeel, MD [address] [place] [address] PCP - General Internal Medicine 10/09/24
--- OUTSIDE RECORDS SUMMARY | 2025-01-13 07:30 | XMS_ITS | Clinical Summary ---
Author Organization [employer] Address [address] [place] [address] 7 [place] [address] Care Team Providers Care Chemical Preparer Name Role Phone Unavailable Primary Care Provider Unavailabl e Allergies No known active allergies Medications albuterol 108 (90 Base) MCG/ACT inhalerIndication s:Mild intermittent asthma without complication Inhale 2 puffs every 4 (four) hours if needed for wheezing. 18 g 5 11/04/19 26 Active cromolyn (NasalCrom) 5.2 MG/ACT nasal sprayIndications: Viral upper respiratory infection Administer 1 spray into each nostril 3 times daily. 26 mL 5 11/04/19 26 Active Active Problems Problem [...] Encounters Date Type Department Care Team Description 01/08/2025 Travel 01/05/2025 Patient Outreach [facility] [address] [place] [address] Shelley Ness MD Care Coordination (CHW outreach for SDOH housing search-referral completed ) 01/05/2025 Patient Outreach [facility] [address] [place] [address] Shelley Ness MD Pre-visit Planning (SDOH screening positive and tobacco screening negative) 12/22/2024 Orders Only GENERIC EXTERNAL DATA DEPARTMENT Provider, Generic External Data 11/03/2024 5:20 PM EDT Office Visit [facility] [address] [place] [address] Abby Fox MD Viral upper respiratory infection (Primary Dx); Mild intermittent asthma without complication 11/03/2024 Travel from Last 3 Months Social History Tobacco Use Types Packs/Day Years Used Date Smoking Tobacco: Never Smokeless Tobacco: Never Tobacco Cessation:Counseling Given: No Alcohol Use Standard Drinks/Week Comments Never 0 (1 standard drink = 0.6 oz pur e alcohol) Housing Stability Answer Date Recorded What is your housing situation today? I have monika barber 01/05/[address] you li ve. Do you have problems with any of the following? Pests such as bugs, ants, or mice 01/05/2025 Food Insecurity Answer Date Recorded Within the past 12 months, y ou worried that your food would run out before you got money to buy more: Never True 01/05/2025 Within the past 12 months,th e food you bought just didn't last and you didn't have enough money to get more: Never True Transportation Answer Date Recorded In the past 12 months, has l ack of transportation kept you from medical appts, meetings, work or from getting things needed for daily living? No 01/05/2025 Utilities Answer Date Recorded In the past 12 months, has t he electric, gas, oil or water company threatened to shut off services in your home? No 01/05/2025 Internet Access Answer Date Recorded Internet Access Q1 Yes 01/05/2025 Internet Access Q2 Not on file 01/05/2025 Education Answer Date Recorded What is the [...] 11/18/2023 1:15 PM EDT Plan of Treatment Upcoming Encounters Date Type Department Care Team (Late st Contact Info) Description 01/15/2025 1:00 PM EDT Office Visit [facility] [address] [place] [address] Shelley Ness MD [address] [place] [address] Health Maintenance Due Date Last Done Comments Depression Screening 1990 HIV Screening 1992 Alcohol/Substance Use Screening 2004 Family [...] 2023-2 5 season) 2024 Influenza Vaccine (#1) 2025 SDOH Screening 01/05/2026 01/05/2025 Tobacco Screening 01/05/2026 01/05/2025 Disability Screening 01/08/2026 01/08/2025 Cervical Cancer Screening 11/17/2028 HPV/Cotest 11/17/2028 11/18/2023 [...] AUTO DIFFERENTIAL Routine 12/22/2024 9:45 AM EDT CULTURE, URINE, ROUTINE Routine 12/22/2024 12:00 AM EDT POCT INFLUENZA B (ID NOW [...] Culture (12/22/2024 12:02 PM EDT) Color Urine Parker [facility] Appearance Urine Turbid [facility] PH 6.5 5.0 - 9.0 [facility] Glucose Urine UA Negative Negative mg/dL [facility] Urine Blood Large (3+)(A) Negative [facility] Specific [place] - Urine 1.025 1.005 - 1.025 [facility] Urine Protein 100 (2+)(A) Neg-Trace mg/dL [facility] Urine Ketones >=80 Negative mg/dL [facility] Nitrite Urine Positive(A) Negative [facility] Leukocyte Esterase Urine Trace(A) Negative [facility] RBC Urine >20(A) 0 - 2 /HPF [facility] Urine WBC >50(A) 0 - 5 /HPF [facility] Urine Squamous Epithelial Cell 11-20 0 - 2 /HPF [facility] Urine Bacteria 3+ None Seen [facility] Hyaline Casts, Urine 6-10 0 - 2 /LPF [facility] 12/22/2024 12:0 2 PM EDT 12/22/2024 12:05 PM EDT Narrative [facility] - 12/22/2024 12:24 PM EDT [id number], Clean Catch us Generic External Data Provider LAB URINE ORDERAB LES Final Result [facility] [address] [place] [phone] * CT Abdomen Pelvis w/o Contrast (12/22/2024 9:49 AM EDT) Anatomical Region Laterality Modality Body, Pelvis, Abdomen Computed T omography 12/22/2024 9:49 AM EDT Narrative 12/22/2024 11:18 AM EDT [address] [address] [address] Scan Report Signed Patient: Ghislaine Martinez MR#: [id number] : 1990 Acct:[id number] Age/Sex: 34 / F ADM Date: 12/22/24 Loc: HO.ED Attending Dr: Ordering Physician: Lisa Lopez DO Date of Service: 12/22/24 Procedure(s): CT abdomen pelvis wo IV con Accession Number(s): [id number] cc: Lisa Lopez DO; [facility] Report Number: [id number]: Total DLP = 699.00 mGy-cm EXAMINATION: CT [...] is 7 mm near the ampulla of [place]. PANCREAS: Unremarkable. SPLEEN: Unremarkable. ADRENAL GLANDS: Unremarkable. [...] Sanchez Joe MD 12/22/2024 11:15 AM EDT RP Dictated By: Sanchez Joe MD Signed By: <Electronically signed by Sanchez Joe MD in OV> 12/22/24 1115 DD/ 0949 TD/TT: 12/22/24 1054 Attacher: Procedure Note Donotuseinterpreter, Image - 12/22/[address] [place] [address] [address] Scan Report Signed Patient: Jyothi Martinez#: [id number] : 1990Acct:[id number] Age/Sex: 34 / FADM Date: 12/22/24 Loc: HO.ED Attending Dr: Ordering Physician: Lisa Lopez DO Date of Service: 12/22/24 Procedure(s): CT abdomen pelvis wo IV con Accession Number(s): [id number] cc: Lisa Lopez DO; [facility] Report Number: [id number]: Total DLP = 699.00 mGy-cm EXAMINATION: CT [...] is 7 mm near the ampulla of [place]. PANCREAS: Unremarkable. SPLEEN: Unremarkable. ADRENAL GLANDS: Unremarkable. [...] 12/22/24 1115 DD/ 0949 TD/TT: 12/22/24 1054 Attacher: [facility] External Provider IMG CT PROCEDURES Edited Result - Final * (ABNORMAL) CBC auto differential (12/22/2024 9:45 AM EDT) White Blood Count 8.3 4.8 - 10.8 X10*3/uL [facility] Red Blood Count 5.29 4.20 - 5.50 X10*6/uL [facility] Hemoglobin 12.6 12.0 - 16.0 g/dl [facility] Hematocrit 39.1 37.0 - 47.0 % [facility] Mean Corpuscular Volume 73.9(L) 80.0 - 98.0 fL [facility] Mean Corpuscular Hemoglobin 23.8(L) 27.0 - 33.0 pg [facility] Mean Corpuscular HGB Conc 32.2 31.0 - 35.0 g/dl [facility] Red Cell Distribution Width 14.9 11.0 - 16.0 % [facility] Platelet Count 356 160 - 400 X10*3/uL [facility] Mean Platelet Volume 10.6 9.4 - 12.3 fL [facility] Neutrophils Percent Auto 78.8(H) 45 - 73 % [facility] Imm Gran Pct Auto 0.2 0.0 - 0.4 % [facility] Lymphocytes Percent Auto 14.1(L) 20 - 40 % [facility] Monocytes Percent Auto 6.0 2 - 11 % [facility] Eosinophils Percent Auto 0.4 0 - 4 % [facility] Basophils Percent Auto 0.5 0 - 2 % [facility] NRBC Pct Auto 0.0 0.0 - 0.2 /100WBC [facility] Neutrophils Absolute Auto 6.5 2.0 - 8.3 x10*3/uL [facility] Imm Gran Abs Auto 0.02 0.00 - 0.03 X10*3/uL [facility] Lymphocytes Absolute Auto 1.2 1.2 - 4.9 X10*3/uL [facility] Monocytes Absolute Auto 0.5 0.1 - 1.2 X10*3/uL [facility] Eosinophils Absolute Auto 0.0 0.0 - 0.4 X10*3/uL [facility] Basophils Absolute Auto 0.0 0.0 - 0.2 X10*3/uL [facility] NRBC Abs Auto 0.000 0.0 - 0.012 X10*3/uL [facility] 12/22/2024 9:45 AM EDT 12/22/2024 9:50 AM EDT Generic External Data Provider LAB BLOOD ORDERAB LES Final Result Performing Organization Address City/[facility]/ZIP Co de Phone Number [facility] [address] [place] [address] [phone] * hCG, Total, Quantitative (12/22/2024 9:45 AM EDT) HCG Quantitative <2 mIU/mL [facility] Comment:Weeks post LMP Appro ximate hCG(Last Menstrual Period) Range (mIU/ml)3 - 4 weeks 9 - 1304 - 5 weeks 75 - 2,6005 - 6 weeks 850 - 20,8006 - 7 weeks 4000 - 100,2007 - 12 weeks 11,500 - 289,84854 - 16 weeks 18,300 - 137,34161 - 29 weeks (2nd trimester) 1,400 - 53,90867 - 41 weeks (3rd trimester) 940 - [...] Provider LAB BLOOD ORDERAB LES Final Result [facility] [address] [place] [address] [phone] * Magnesium (12/22/2024 9:45 AM EDT) Magnesium 2.1 1.6 - 2.6 mg/dL [facility] 12/22/2024 9:45 AM EDT 12/22/2024 9:50 AM EDT us Generic External Data Provider LAB BLOOD ORDERAB LES Final Result Performing Organization Address [facility] de Phone Number [facility] [address] [place] [phone] * (ABNORMAL) Hepatic Function Panel (12/22/2024 9:45 AM EDT) Bilirubin, Total 0.6 0.0 - 1.0 mg/dL [facility] Bilirubin, Direct 0.1 0.0 - 0.5 mg/dL [facility] Aspartate Amino Transferase 40(H) 5 - 31 U/L [facility] Comment:Slight Hemolysis.Int erpret result with caution. Alanine Aminotransferase 48(H) 0 - 31 U/L [facility] Total Protein 8.0 6.5 - 8.0 g/dL [facility] Albumin Level 4.6 3.5 - 5.0 g/dL [facility] Alkaline Phosphatase 66 39 - 117 U/L [facility] 12/22/2024 9:45 AM EDT 12/22/2024 9:50 AM EDT us Generic External Data Provider LAB BLOOD ORDERAB LES Final Result Performing Organization Address [facility] de Phone Number [facility] [address] [place] [phone] * (ABNORMAL) Basic Metabolic Panel (12/22/2024 9:45 AM EDT) Sodium 140 135 - 145 mmol/L [facility] Potassium 3.3 3.3 - 5.1 mmol/L [facility] Comment:Slight Hemolysis.Int erpret result with caution. Chloride 105 96 - 108 mmol/L [facility] Carbon Dioxide 24 22 - 29 mmol/L [facility] Anion Gap 14 12 - 20 [facility] Urea Nitrogen (BUN) 7(L) 9 - 16 mg/dL [facility] Creatinine, Serum 0.76 0.5 - 1.4 mg/dL [facility] Creatinine Clr Calc Pharmacy 115.1 [facility] Comment:Provided height and weight: 160.02 cm,93 kg.eGFR (calculated from the MDRD study equation) and eCrCl(calculated from the Cockcroft-Gault equation) are based ondifferent parameters and may not yield comparable results.If eCrCl result is absurd, please check patient'sheight/weight. Estimated Glomerular Filt Rate >60 [facility] Comment:Chronic Kidney Disea se: Estimated GFR < 60 mL/min/1.50f7Bguytr Kidney Disease: Estimated GFR < 15 mL/min/1.73m2 Glucose 133(H) 60 - 115 mg/dL [facility] Calcium 9.1 8.4 - 10.2 mg/dL [facility] 12/22/2024 9:45 AM EDT 12/22/2024 9:50 AM EDT Generic External Data Provider LAB BLOOD ORDERAB LES Final Result Performing Organization Address [facility]/ZIP Co de Phone Number [facility] [address] [place] [phone] * Culture, Urine, Routine (12/22/2024 12:00 AM EDT) Urine Urine specimen obtained by clean catch procedure / Unknown 12/22/2024 12/22/2024 Comment:UACC Narrative [facility] - 12/23/2024 11:29 AM EDT Strep agalactiae (Grp B) Quant < 10,000 cfu/mL Susc N/A Susceptibility not routinely performed on this isolate. Specimen Source: Urine clean catch Generic External Data Provider LAB MICROBIOLOGY - GENERAL ORDERABLES Final Result Performing Organization Address City/[facility]/ZIP Co de Phone Number [facility] [address] [place] [address] [phone] * POCT Rapid Influenza B FARMER ID NOW (11/03/2024 5:34 PM EDT) [facility] Influenza B Negative Negative, Indeterminate [facility] QC Media Lot # [id number] [facility] Lot# Expiration Date [facility] Swab 11/03/2024 5:34 PM EDT Abby Fox MD POINT OF CARE TEST ENTER/E DIT ORDERABLES Final Result Performing Organization Address [facility] Co de Phone Number [facility] [address] [place] [phone] * POCT Rapid Influenza A FARMER ID NOW (11/03/2024 5:34 PM EDT) [facility] Influenza A Negative Negative, Indeterminate [facility] QC Media Lot # [id number] [facility] Lot# Expiration Date [facility] Swab 11/03/2024 5:34 PM EDT Abby Fox MD POINT OF CARE TEST ENTER/E DIT ORDERABLES Final Result Performing Organization Address [facility] de Phone Number [facility] [address] [place] [phone] * POCT Rapid COVID-19 Binax NOW (11/03/2024 5:34 PM EDT) [facility] Rapid COVID Ag Negative QC Media Lot # [id number] Lot# Expiration Date Swab 11/03/2024 5:34 PM EDT Abby Fox MD POINT OF CARE TEST ENTER/E DIT ORDERABLES Final Result * POCT Rapid Strep A FARMER ID NOW (11/03/2024 5:33 PM EDT) [facility] Rapid Strep A Screen Negative Negative, None Detected QC Media Lot # [id number] Lot# Expiration Date Swab 11/03/2024 5:33 PM EDT Abby Fox MD POINT OF CARE TEST ENTER/E DIT ORDERABLES Final Result * HPV mRNA E6/E7 w/Reflex to HPV Genotypes 16, 18/45 (11/18/2023 1:29 PM EDT) HPV nRNA E6/E7 Not Detected Not Detected [facility] Comment:Methodology: Transcr iption-Mediated AmplificationThis assay detects E6/E7 viral messenger RNA (mRNA) from 14high-risk HPV types (16,18,31,33,35,39,45,51,52,56,58,59,66,68).Cervical sources are required for HPV testing.If a vaginal source from a patient who has had atotal hysterectomy with removal of cervix wassubmitted, please contact the testing laboratoryfor alternative testing options.For additional information, please refer [email or web address]/[email or web address](This link if provided for information/educational purposes only.)THIS TEST WAS PERFORMED AT:[email or web address] [place] [id number] CANO MD HPV mRNA E6/E7 [facility] HPV 16 RNA [facility] HPV 18/45 RNA [facility] 11/18/2023 1:29 PM EDT 11/27/2023 12:30 PM EDT [place] [facility] ORDERABLES F inal Result [facility] [address] [place], [place] [phone] * Pap Smear (11/18/2023 1:29 PM EDT) 11/18/2023 1:29 PM EDT 11/19/2023 9:10 AM EDT Narrative [facility] - 12/02/2023 5:17 PM EDT ----- ------- Name: Ghislaine Martinez Age/Sex: / : 1990 Unit#: [id number] Attend Dr: HOUSTON CADE CNM Re11/18/23 Status: [facility]: ----- ------- SPEC : [id number] RECD: 11/19/23 STATUS: MASONReji NO NUM: [id number] ALFREDO: 11/18/23-[address] [facility] [address]: HOUSTON CADE CNM ENTERED: 11/19/23 SP TYPE: Pap Smr [facility] DR: ORDERED: Pap Smear Interpretation Satisfactory for evaluation. Negative for intraepithelial lesion or malignancy. Mild inflammation. HPV mRNA E6/E7: NOT DETECTED This assay detects E6/E7 viral messenger RNA (mRNA) from 14 high-risk HPV types (16, 18, 31, 33, 35, 39, 45, 51, 52, 56, 58, 59, 66, 68) HPV testing performed by [facility], [place], [place]. See reference laboratory portion of the EMR for entire report. Clinical Information LMP: 11/15/2023 Previous PAP test: Unknown date/findings Other history: Abnormal uterine bleeding Material Received ThinPrep-Vaginal/Cervical ----- ------- Signed (signature on file) Cheryl Salgado 12/02/23 1717 ----- ------- END OF REPORT [place] Cade [facility] CYTOLOG[facility] ORDERABLES F inal Result [facility] [address] [place] [phone] from Last 3 Months or Most Recently Relevant to Health Maintenance Insurance [facility] C3 [facility] ACO
--- NOTE | 2025-01-13 07:33 | MHC.OFFVIS ---
Vital Signs 01/13/25 07:47 Height 5 ft 3 in Weight 205 lb BMI 36.3 Intake Visit Reasons: EMB Speech Language Pathologist Required: Yes Speech Language Pathologist Language: [employer] Services: Speech Language Pathologist Present (in person) Speech Language Pathologist Name: Luisa HUYNH Information Interpreted: non-clinical & clinical Senior Electrical Estimator: Senior Electrical Estimator Present (Luisa HUYNH) Accompanied by: Self / Same As Patient Allergies No Known Allergies Allergy (Verified 01/13/25 07:48) HPI Comments Details: Presenting for EMB. Requesting refill on control pills. Pelvic ultrasound ordered in 12/08 never scheduled or done [facility] Medical History Asthma Surgical History Hx of cholecystectomy Family History Father Asthma Mother Asthma Maternal Grandmother Diabetes HTN (hypertension) Maternal Grandfather Diabetes HTN (hypertension) Social History Household Members: Children Housing: Apartment Are you a primary animal care supervisor to a significant other at home: No Do you presently have visiting nurse or other home services: No Alcohol intake: never Patient Tobacco Use Status: Never used Tobacco Current occupational status: unemployed Sexual orientation: Straight/Heterosexual Gender identity: Female Review of Systems Const All systems reviewed & are unremarkable except as noted in HPI and below Reports as per HPI and Reports no additional complaints GI Reports no additional complaints Reports no additional complaints Physical Exam Vital Signs: BMI result Body Mass Index 36.3 Office Procedures Endometrial Biopsy Details: The patient was counseled regarding the indication and benefits of endometrial sampling to rule out endometrial pathology including not limited to endometrial hyperplasia or endometrial cancer and others; The alternatives (Either do nothing vs. hysteroscopy D&C) & the risks were discussed with the patient including but not limited: pain, uterine perforation, bleeding, infection, possible injury to bladder, bowel, ureter, possible need for blood transfusion with all its possible risks. The patient verbalized understanding all questions answered and signed consent. Urine test done in the office was negative The patient was placed into the dorsal lithotomy position; a speculum was inserted in the vagina. Using aseptic technique for the procedure, the cervix was cleansed with Betadine. The anterior lip of the cervix was grasped with a single tooth tenaculum. The uterus was sounded to 7 cm with a 4 mm Pipelle was used. Tissues samples were obtained and placed in formalin, in a patient labeled container and sent to the pathology department. At the end of the procedure, there was minimal bleeding noted The patient tolerated the procedure well and was discharged in good condition with the following instructions: Nothing in the vagina until the bleeding stops. No sex until the bleeding stops, to call if any of the following occurs: fever (>100.4), flu-like symptoms, abdominal pain, heavy bleeding, four smelling vaginal discharge. The patient was instructed to schedule a Follow up appointment in 2 weeks to discuss pathology results of the biopsy and treatment options. This note was generated with a voice recognition program. Some errors may have been overlooked during the review of this note. Sometimes these errors may affect the content or meaning of a given sentence. 49583-Pyirmfgugmz Biopsy Results AMB Test Urine AMB Test Urine Negative Last Edit by Luisa Merritt CMA on 01/13/25 07:50 Results Reviewed Results Reviewed: Laboratory Last Values Tst Clinic Negative 01/13/25 07:49 Assessment & Plan Assessment & Plan (1) Abnormal uterine bleeding (AUB): Comment: 02/19/2024 Glandular crowding and focal atypia on emb 03/13/2024 Negative for hyperplasia and/or atypia on D&C pathology 08/11/2024 negative-EMB Code(s): N93.9 - Abnormal uterine and vaginal bleeding, unspecified Category: Medical Plan: EMB done, see procedure note. control pills refilled. Pelvic ultrasound ordered regarding myomas. Instructions given the patient is schedule an ultrasound and a follow-up appointment. Orders: Orders AMB HCG Urine Test Today Z32.02 - Encounter for test, result negative AMB Endometrial Biopsy Today N93.9 - Abnormal uterine and vaginal bleeding, unspecified US pelvic and transvaginal Today D25.9 - Leiomyoma of uterus, unspecified Medications: Refilled desogestrel-ethinyl estradiol 0.15-0.03 mg (Apri) 1 tab PO DAILY 28 tabs 2RF 28 days Coding Level of Care Code Procedure Only Diagnoses Abnormal uterine bleeding (AUB) N93.9 CPT Codes Endometrial Biopsy - CPT: 80629-Bqihmacdeui Biopsy ([id number])
[2025-01-13 07:47] VITALS: BMI 36.3
== END 2025-01-13 08:16 | disposition home or self-care (01) ==
PROVIDERS: PCP Internal Medicine Geriatric Medicine; Visit Provider Obstetrics & Gynecology
DX: N93.9 Abnormal uterine and vaginal bleeding, unspecified (principal); Z32.02 Encounter for pregnancy test, result negative
CPT/HCPCS: 58100

== ENCOUNTER 2025-02-02 08:47 | Emergency (ER) | payer MEDICAID, SELFPAY ==
--- NOTE | ~2025-02-02 | XR_ITS ---
EXAMINATION: XR CHEST CLINICAL INFORMATION: cp COMPARISON: July 28, 2023 TECHNIQUE: 2 views of the chest were obtained. FINDINGS: No consolidation, pleural effusion or pneumothorax. No hyperinflation. Cardiomediastinal silhouette size is normal. Mild S-shaped curvature of the thoracic spine. Mild multilevel thoracic spondylosis. Vascular clips in the upper abdomen and likely prior cholecystectomy. Patient's large body habitus/obesity. XR/XR chest 2V IMPRESSION: No acute airspace disease. Stable chest. Electronically signed by: John Francois MD 02/02/2025 09:24 AM EDT
--- NOTE | 2025-02-02 08:53 | ECG_ITS ---
Test Reason : cp Blood Pressure : */* mmHG Vent. Rate : 74 BPM Atrial Rate : 74 BPM P-R Int : 118 ms QRS Dur : 76 ms QT Int : 376 ms P-R-T Axes : 30 25 -4 degrees QTcB Int : 417 ms Normal sinus rhythm Nonspecific T wave abnormality Abnormal ECG When compared with ECG of 28-Jul-2023 11:50, No significant change was found Referred By: Generic ED Physician Electronically Signed By: SACHA BREEN MD
[2025-02-02 09:04] VITALS: BP 137/73; PULSE 76; RESP 18; TEMP 36.6; O2SAT 98; BMI 37.5
[2025-02-02 09:58] LABS: MANUAL DIFF FLAG NO
[2025-02-02 10:04] LABS: Hematocrit 38.8 % (37.0-47.0); Hemoglobin 12.1 g/dl (12.0-16.0); Imm Gran Abs Auto 0.02 X10*3/uL (0.00-0.03); Imm Gran Pct Auto 0.3 % (0.0-0.4); Lymphocytes Absolute Auto 1.6 X10*3/uL (1.2-4.9); Mean Corpuscular HGB Conc 31.2 g/dl (31.0-35.0); Mean Corpuscular Hemoglobin 24.2 pg (27.0-33.0); Mean Corpuscular Volume 77.8 fL (80.0-98.0); NRBC Abs Auto 0.000 X10*3/uL (0.0-0.012); NRBC Pct Auto 0.0 /100WBC (0.0-0.2); Platelet Count 296 X10*3/uL (160-400); Red Blood Count 4.99 X10*6/uL (4.20-5.50); White Blood Count 7.7 X10*3/uL (4.8-10.8)
[2025-02-02 10:27] LABS: Anion Gap 11 (12-20); Blood Urea Nitrogen 10 mg/dL (9-16); Calcium 8.8 mg/dL (8.4-10.2); Carbon Dioxide 26 mmol/L (22-29); Chloride 107 mmol/L (96-108); Creatinine Clr Calc Pharmacy 156.1; Estimated Glomerular Filt Rate > 60; Potassium 3.8 mmol/L (3.3-5.1); Sodium 140 mmol/L (135-145)
[2025-02-02 10:38] LABS: Troponin-I High Sensitivity < 2.7 ng/L (<3.5-17.0)
--- NOTE | 2025-02-02 14:17 | ED.CHESTPAIN ---
HPI - Chest Pain General Chief Complaint: Chest Pain Stated Complaint: Chest pain, arm pain Time Seen by Provider: 02/02/25 14:17 Source: patient and RN notes reviewed Mode of arrival: ambulatory Limitations: no limitations History of Present Illness ED Provider: Cheryl Leonardo PA-C HPI narrative: This is a 66-oifs-are-female, with no known medical problems, who presents to the ER with concerns of chest pain which started yesterday. Patient reports that while she was moving furniture yesterday she developed some chest pain. She states that the chest pain has been constant since its onset. Denies any pleuritic chest pain. She describes the chest pain as a tight sensation that radiates into her left shoulder. States pain worsens with palpation of her chest as well as movement of her left arm. 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 She is on control. She denies any recent travel, surgery, or hospitalizations. She denies any current shortness of breath. Denies any palpitations. She has been in her usual state of health. No fevers or chills. No abdominal pain, nausea, vomiting or diarrhea. No prior cardiac history. No other complaints or concerns at this time. MD complaint: chest pain Timing of current episode: constant Pain location: left chest Pain radiation: left shoulder Severity: moderate Quality: tightness Relieving factors: nothing Exacerbating factors: movement Treatment prior to arrival: none Risk Factors Coronary artery disease risk factors: none Thoracic aortic dissection risk factors: none Related Data On Oral Contraceptives: Yes Home Medications ?Medication ?Instructions ?Recorded ?Confirmed ferrous sulfate 325 mg (65 mg 325 mg PO DAILY 01/06/24 03/13/24 iron) tablet (Feosol) Previous Rx's ?Medication ?Instructions ?Recorded ketorolac 10 mg tablet 10 mg PO Q6H PRN pain #20 tabs 12/22/24 tamsulosin 0.4 mg capsule (Flomax) 0.4 mg PO DAILY #10 caps 12/22/24 desogestrel 0.15 mg-ethinyl 1 tab PO DAILY 28 days #28 tabs 01/13/25 estradiol 0.03 mg tablet (Apri) Allergies Allergy/AdvReac Type Severity Reaction Status Date / Time No Known Allergies Allergy Verified 02/02/25 09:06 Review of Systems Review of Systems: Yes all other systems are reviewed and are negative Constitutional: Constitutional: Reports as per [facility] Past Medical History Medical History Asthma Surgical History Hx of cholecystectomy Family History Family History Father Asthma Mother Asthma Maternal Grandmother Diabetes HTN (hypertension) Maternal Grandfather Diabetes HTN (hypertension) Social History Social History Household Members: Children Housing: Apartment Are you a primary home health aide caregiver to a significant other at home: No Do you presently have visiting nurse or other home services: No Alcohol intake: never Patient Tobacco Use Status: Never used Tobacco Advance Directives: No Advance Directives Information Provided: Yes Do you have a plan to hurt others: No Plan Current occupational status: unemployed Sexual orientation: Straight/Heterosexual Gender identity: Female Physical Exam Vital Signs: Vital Signs: Last Vital Signs Temp 98 F 02/02/25 14:37 Pulse 76 02/02/25 14:37 Resp 18 02/02/25 14:37 BP 137/73 02/02/25 14:37 Pulse Ox 98 02/02/25 14:37 O2 Del Method Room Air 02/02/25 14:37 BMI result Body Mass Index 37.5 Const: General: cooperative, comfortable and no acute distress Orientation/consciousness: patient oriented x3 Limitations: no limitations HEENT: Head: Yes normal to inspection, Yes normocephalic and Yes atraumatic Ears: hearing grossly normal bilaterally General nose exam: Normal external nose present Face and sinus: Yes normal facial exam Mouth: Normal oral and palatal mucosa present, oropharynx normal and moist mucous membranes Throat: Yes posterior oropharynx normal Eyes: General: appearance normal, both eyes and all related structures Eyelids: Yes eyelids normal Conjunctivae: conjunctivae normal Sclerae: sclerae normal Pupils: Equal, round and reactive pupils present EOM: EOMs intact bilaterally Neck: Neck: Yes normal visual inspection, Yes full ROM and Yes no lymphadenopathy Lymphatic: no lymphadenopathy noted Chest: Other: Tenderness palpation along the left anterior chest wall, pain elicited when she lifts her left arm Chest palpation & inspection: normal inspection of the chest Resp: Effort & Inspection: normal respiratory effort and able to speak in complete sentences Auscultation: clear to auscultation bilaterally, no crackles, no rales, no rhonchi and no wheezes Cardio: Rate: regular rate Rhythm: regular rhythm Heart sounds: S1 normal heart sound present and S2 normal heart sound present GI: Inspection: Yes normal to inspection Skin: General skin exam: no rashes or lesions noted Trauma: no lacerations or abrasions Wounds: no wounds Neuro: General: patient oriented x3 and moves all extremities Cranial nerves: Yes Equal, round and reactive pupils present Extrem: General: Yes normal to inspection Right upper extremity: normal to inspection Left upper extremity: normal to inspection Right lower extremity: normal to inspection Left lower extremity: normal to inspection Medical Decision Making Medical Decision Making [facility] Narrative: This is a 34-year-old female, with no known medical problems, who presents emergency department with concerns of chest pain which started yesterday. On arrival, vital signs within normal limits. She is speaking in full sentences under no acute distress. Patient has had constant chest pain since yesterday. She states that she has been moving furniture, and believes that she may have overdone it. 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 Denies taking any medications to treat her current symptoms. Labs were obtained prior to my evaluation, she has no leukocytosis, stable H&H, chemistry within normal limits, troponin less than 2.7. Chest x-ray unremarkable. EKG unremarkable. She is not hypoxic or tachycardic. She is on control however has no other PE risk factors. No history of DVT or PE. No lower extremity pain. She has no pleuritic pain. Symptoms likely musculoskeletal in nature. Given strict return precautions. She understands and agrees with plan, patient stable for discharge Differential Diagnosis Differential Diagnoses: The differential diagnosis associated with the presentation includes ACS-unlikely, costochondritis, muscular strain, chest pain Admission/Observation Consideration of admission/observation: Escalation of care including admission/observation considered Lab Data [facility] Lab Attestation statement: I reviewed the patient's lab results. See MDM and course 02/02/25 09:54 02/02/25 09:54 Labs: Lab Results 08/19/25 Range/Units 09:54 WBC 7.7 (4.8-10.8) X10*3/uL RBC 4.99 (4.20-5.50) X10*6/uL Hgb 12.1 (12.0-16.0) g/dl Hct 38.8 (37.0-47.0) % MCV 77.8 L (80.0-98.0) fL MCH 24.2 L (27.0-33.0) pg MCHC 31.2 (31.0-35.0) g/dl RDW 14.9 (11.0-16.0) % Plt Count 296 (160-400) X10*3/uL MPV 10.1 (9.4-12.3) fL Immature Gran % (Auto) 0.3 (0.0-0.4) % Neut % (Auto) 71.2 (45-73) % Lymph % (Auto) 20.3 (20-40) % [place] % (Auto) 7.1 (2-11) % Eos % (Auto) 0.8 (0-4) % Baso % (Auto) 0.3 (0-2) % Lymph # (Auto) 1.6 (1.2-4.9) X10*3/uL [place] # (Auto) 0.6 (0.1-1.2) X10*3/uL Eos # (Auto) 0.1 (0.0-0.4) X10*3/uL Baso # (Auto) 0.0 (0.0-0.2) X10*3/uL Abs Immat Gran (auto) 0.02 (0.00-0.03) X10*3/uL Absolute Neuts (auto) 5.5 (2.0-8.3) x10*3/uL Absolute Nucleated RBC 0.000 (0.0-0.012) X10*3/uL Nucleated RBC % (auto) 0.0 (0.0-0.2) /100WBC Sodium 140 (135-145) mmol/L Potassium 3.8 (3.3-5.1) mmol/L Chloride 107 (96-108) mmol/L Carbon Dioxide 26 (22-29) mmol/L Anion Gap 11 L (12-20) BUN 10 (9-16) mg/dL Creatinine 0.57 (0.5-1.4) mg/dL Estim Creat Clear Calc 156.1 Estimated GFR > 60 Random Glucose 109 (60-115) mg/dL Calcium 8.8 (8.4-10.2) mg/dL Troponin I High Sens < 2.7 (<3.5-17.0) ng/L Independent Interpretation I performed an independent interpretation of an: EKG Interpretation: EKG normal sinus rhythm at a ventricular rate of 74 beats per minute, SC interval 118, QT QTC 376/417, no STEMI. Radiology Impression Discussion of test interpretation with radiology: I have reviewed the radiologist's reading. Radiologist Impression: FINDINGS: No consolidation, pleural effusion or pneumothorax. No hyperinflation. Cardiomediastinal silhouette size is normal. Mild S-shaped curvature of the thoracic spine. Mild multilevel thoracic spondylosis. Vascular clips in the upper abdomen and likely prior cholecystectomy. Patient's large body habitus/obesity. XR/XR chest 2V IMPRESSION: No acute airspace disease. Stable chest. Electronically signed by: John Francois MD 02/02/2025 09:24 AM EDT RP Dictated By: John Richey MD Discharge Plan Discharge Clinical Impression: Chest pain Patient Disposition: Home, Self-Care Instructions: Chest Pain (ED), Chest Wall Pain (ED) Additional Instructions: You were seen in the ER due to chest pain. Your symptoms are likely due to a muscle pain. Your blood work, EKG, and chest xray show no abnormal findings. Please take motrin and or tylenol as needed for pain. Rest, Ice or apply heat, and rest. If any new or worsening symptoms occur, please seek emergent care. Follow up with your PCP. Prescriptions: No Action tamsulosin [Flomax] 0.4 mg capsule 0.4 mg PO DAILY Qty: 10 0RF ketorolac 10 mg tablet 10 mg PO Q6H PRN (Reason: pain) Qty: 20 0RF Rx Instructions: received 30mg IM toradol in the ED ferrous sulfate [Feosol] 325 mg (65 mg iron) tablet 325 mg PO DAILY desogestrel-ethinyl estradiol [Apri] 0.15-0.03 mg tablet 1 tab PO DAILY 28 Days Qty: 28 2RF Stand Alone Forms: Work/School Release Interventions: ED Discharge Assessment Last Done: 02/02/25 14:37 Discharge Date/Time: 02/02/25 14:43 Print Language: Cymro
[2025-02-02 14:37] VITALS: BP 137/73; PULSE 76; RESP 18; TEMP 36.6; O2SAT 98
--- OUTSIDE RECORDS SUMMARY | 2025-02-02 16:00 | XMS_ITS | Clinical Summary ---
Author Organization [address] [facility] Address [address] [place] [address] Phone Care Team Providers Care Prison Librarian Name Role Phone Hardy Marquez MD Primary [...] Date Viral upper respiratory infection 11/03/2024 12/09/2024 Medical History Medical History Date Comments Viral [...] of 2 - PCV) 11/13/2011 COVID-19 Vaccine (2023-2 5 season) 2024 Depression Screening 06/17/2024 HIV [...] age to complete this topic Insurance [address] [place] [phone] MEDICAID - [place] Care Teams Prison Librarian Relationship Specialty Start Date End Date Hardy Marquez MD [address] [place] [address] PCP - General Internal Medicine 10/09/24
--- OUTSIDE RECORDS SUMMARY | 2025-02-02 16:00 | XMS_ITS | Encounter Summary ---
Author Organization [employer] Address [address] [facility] [address] [place] [address] Care Team Providers Care Family Assessment Worker Name Role Phone Unavailable Primary Care Provider Unavailabl e Encounter Details Date Type Department Care Team ([facility] st Contact Info) Description 02/02/2025 Orders Only GENERIC EXTERNAL DATA DEPARTMENT Provider, [...] Procedure Name Priority Date/Time Associated Diagnosis Comments HIGH SENSITIVITY TROPONIN I Routine 02/02/2025 9:54 AM EDT CBC WITH AUTO DIFFERENTIAL Routine 02/02/2025 9:54 AM EDT BASIC METABOLIC PANEL Routine 02/02/2025 9:54 AM EDT documented in this encounter Results * High Sensitivity Troponin I (02/02/2025 9:54 AM EDT) [facility] TROPONIN I HIGH SENSITIVITY <2.7 <3.5 - 17.0 ng/L [facility] Comment:The Green high sens itivity Troponin-I results should beused in conjunction with other diagnostic information suchas ECG, clinical observations and information, and patientsymptoms to aid in the diagnosis of MT. 02/02/2025 9:54 AM EDT 02/02/2025 9:57 AM EDT us Generic External Data Provider LAB BLOOD ORDERAB LES Final Result [facility] [address] [place] [phone] * (ABNORMAL) Basic Metabolic Panel (02/02/2025 9:54 AM EDT) [facility] Sodium 140 135 - 145 mmol/L [facility] Potassium 3.8 3.3 - 5.1 mmol/L [facility] Chloride 107 96 - 108 mmol/L [facility] Carbon Dioxide 26 22 - 29 mmol/L [facility] Anion Gap 11(L) 12 - 20 [facility] Urea Nitrogen (BUN) 10 9 - 16 mg/dL [facility] Creatinine, Serum 0.57 0.5 - 1.4 mg/dL [facility] Creatinine Clr Calc Pharmacy 156.1 [facility] Comment:Provided height and weight: 160.02 cm,96 kg.eGFR (calculated from the MDRD study equation) and eCrCl(calculated from the Cockcroft-Gault equation) are based ondifferent parameters and may not yield comparable results.If eCrCl result is absurd, please check patient'sheight/weight. Estimated Glomerular Filt Rate >60 [facility] Comment:Chronic Kidney Disea se: Estimated GFR < 60 mL/min/1.98u4Rossgr Kidney Disease: Estimated GFR < 15 mL/min/1.73m2 Glucose 109 60 - 115 mg/dL [facility] Calcium 8.8 8.4 - 10.2 mg/dL [facility] 02/02/2025 9:54 AM EDT 02/02/2025 9:57 AM EDT us Generic External Data Provider LAB BLOOD ORDERAB LES Final Result [facility] [address] [place] [phone] * (ABNORMAL) CBC auto differential (02/02/2025 9:54 AM EDT) White Blood Count 7.7 4.8 - 10.8 X10*3/uL [facility] Red Blood Count 4.99 4.20 - 5.50 X10*6/uL [facility] Hemoglobin 12.1 12.0 - 16.0 g/dl [facility] Hematocrit 38.8 37.0 - 47.0 % [facility] Mean Corpuscular Volume 77.8(L) 80.0 - 98.0 fL [facility] Mean Corpuscular Hemoglobin 24.2(L) 27.0 - 33.0 pg [facility] Mean Corpuscular HGB Conc 31.2 31.0 - 35.0 g/dl [facility] Red Cell Distribution Width 14.9 11.0 - 16.0 % [facility] Platelet Count 296 160 - 400 X10*3/uL [facility] Mean Platelet Volume 10.1 9.4 - 12.3 fL [facility] Neutrophils Percent Auto 71.2 45 - 73 % [facility] Imm Gran Pct Auto 0.3 0.0 - 0.4 % [facility] Lymphocytes Percent Auto 20.3 20 - 40 % [facility] Monocytes Percent Auto 7.1 2 - 11 % [facility] Eosinophils Percent Auto 0.8 0 - 4 % [facility] Basophils Percent Auto 0.3 0 - 2 % [facility] NRBC Pct Auto 0.0 0.0 - 0.2 /100WBC [facility] Neutrophils Absolute Auto 5.5 2.0 - 8.3 x10*3/uL [facility] Imm Gran Abs Auto 0.02 0.00 - 0.03 X10*3/uL [facility] Lymphocytes Absolute Auto 1.6 1.2 - 4.9 X10*3/uL [facility] Monocytes Absolute Auto 0.6 0.1 - 1.2 X10*3/uL [facility] Eosinophils Absolute Auto 0.1 0.0 - 0.4 X10*3/uL [facility] Basophils Absolute Auto 0.0 0.0 - 0.2 X10*3/uL [facility] NRBC Abs Auto 0.000 0.0 - 0.012 X10*3/uL [facility] 02/02/2025 9:54 AM EDT 02/02/2025 9:57 AM EDT us Generic External Data Provider LAB BLOOD ORDERAB LES Final Result [facility] [address] [place] [phone] documented in this encounter Visit Diagnoses Not on filedocumented in this encounter
== END 2025-02-02 14:43 | disposition home or self-care (01) ==
LOC: HO.ED 14:40
PROVIDERS: Emergency Provider Emergency Medicine; PCP Internal Medicine Geriatric Medicine
DX: R07.9 Chest pain, unspecified (principal)
CPT/HCPCS: 36415; 71046; 80048; 84484; 85025; 93005; 99283

== ENCOUNTER → 2025-02-02 08:53 | Outpatient (BNV) | payer MEDICAID, SELFPAY | PROVIDERS: PCP Internal Medicine Geriatric Medicine; Visit Provider Internal Medicine Cardiovascular Disease | DX: R94.31 Abnormal electrocardiogram [ECG] [EKG] (principal); R07.9 Chest pain, unspecified | CPT/HCPCS: 93010 ==

== ENCOUNTER → 2025-02-02 09:09 | Outpatient (BNV) | payer MEDICAID, SELFPAY | PROVIDERS: PCP Internal Medicine Geriatric Medicine; Visit Provider Radiology Diagnostic Radiology | DX: R07.9 Chest pain, unspecified (principal) | CPT/HCPCS: 71046 ==

== ENCOUNTER 2025-02-03 15:40 | Outpatient (AMB) | payer MEDICAID, SELFPAY ==
--- NOTE | 2025-02-03 15:40 | MHC.OFFVIS ---
Intake Visit Reasons: TV EMB results Leasing Property Manager Required: Yes Leasing Property Manager Language: Rn Informatics Services: Leasing Property Manager Present (in person) Leasing Property Manager Name: AMINA Avina Information Interpreted: non-clinical & clinical Allergies No Known Allergies Allergy (Verified 02/02/25 09:06) HPI Comments Details: The patient is presenting after endometrial biopsy. The patient has no complaints, no vaginal bleeding, no feverishness chills or abdominal pain. The endometrial biopsy pathology report showed the following: Endometrium, biopsy: - Superficial fragments of inactive endometrium. - Few fragments of endocervical tissue within normal limits. - No atypia identified 02/19/2024 Glandular crowding and focal atypia on emb 03/13/2024 Negative for hyperplasia and/or atypia on D&C pathology 08/11/2024 negative-EMB 01/08 EMB inactive endometrium PFSH Medical History Asthma Surgical History Hx of cholecystectomy Family History Father Asthma Mother Asthma Maternal Grandmother Diabetes HTN (hypertension) Maternal Grandfather Diabetes HTN (hypertension) Social History Household Members: Children Housing: Apartment Are you a primary resident care manager to a significant other at home: No Do you presently have visiting nurse or other home services: No Alcohol intake: never Patient Tobacco Use Status: Never used Tobacco Current occupational status: unemployed Sexual orientation: Straight/Heterosexual Gender identity: Female Review of Systems Const All systems reviewed & are unremarkable except as noted in HPI and below Reports as per HPI and Reports no additional complaints GI Reports no additional complaints Reports no additional complaints Telehealth Telehealth Telehealth Platform: [facility] Location of provider rendering services: practice address Location of patient: address on file Patient Identification confirmed using: Name, : Yes Telehealth method: video Patient verbally consented to treatment: Yes Patient verbally consented to billing insurance company: Yes Patient informed of any privacy concerns related to visit: Yes Minutes spent on Phone/Video with Pt.: 2 Assessment & Plan Assessment & Plan (1) Abnormal uterine bleeding (AUB): Comment: 02/19/2024 Glandular crowding and focal atypia on emb 03/13/2024 Negative for hyperplasia and/or atypia on D&C pathology 08/11/2024 negative-EMB 02/08 EMB inactive endometrium Code(s): N93.9 - Abnormal uterine and vaginal bleeding, unspecified Category: Medical Plan: Discussed with the patient the results of the endometrial biopsy. Discussed with the patient the sensitivity, specificity, positive and negative predictive value, of endometrial biopsy in detecting endometrial pathology including but not limited to endometrial hyperplasia, cancer and other pathology; instructed the patient to call in case abnormal vaginal bleeding recurs. All questions answered and the patient verbalized understanding and agreed with the plan. I spent a total of 20 minutes reviewing the chart, talking to the patient via video and documenting in the medical record. Coding Level of Care Code Tele Est Pt Level 3 (94773) Diagnoses Abnormal uterine bleeding (AUB) N93.9
--- OUTSIDE RECORDS SUMMARY | 2025-02-03 16:25 | XMS_ITS | Encounter Summary ---
Author Organization [employer] Address [address] [place] [address] [address] [place] [address] Care Team Providers Care Manager Of Training Name Role Phone El Garcia RN Unavailable [phone] Michelle Montez Unavailable Reason for Visit * Reason Comments Care Coordination C3 -Imelda wright telephone call outreach Encounter Details Date Type Department Care Team (Latest Contact Info) Description 02/03/2025 Patient Outreach [facility]IC[facility] [address] [place] [address] Michelle Montez Care Coordination (C3 -W Michelle Montez telephone call outreach) Social History Tobacco Use Types Packs/Day Years Used Date Smoking Tobacco: Never Smokeless Tobacco: Never Alcohol Use Standard Drinks/Week Comments Never 0 (1 standard drink = 0.6 oz pur e alcohol) Housing Stability Answer Date Recorded What is your housing situation today? I do not have housing (Staying with others, in a hotel, in a mcfp, living outside on the street, on a beach, in a car, or in a park 02/03/[address] you li ve. Do you have problems with any of the following? None of the above 02/03/2025 Food Insecurity Answer Date Recorded Within the past 12 months, y ou worried that your food would run out before you got money to buy more: Sometimes True 2024 Within the past 12 months,th e food you bought just didn't last and you didn't have enough money to get more: Sometimes True 02/03/2025 Transportation Answer Date Recorded In the past [...] AM EDT documented as of this encounter Progress Notes * Michelle Montez - 02/03/2025 1:27 PM EDT CHW Michelle Montez, placed outbound call to patient introducing herself from [facility] CM Department, in regards to offering services. Patient's name and was confirmed. Patient agrees toparticipate in program. Appt. for initial assessment scheduled for 02/23/25 @ 1:00 PM. CHW reinforceddirect contact information or for any additional questions or concerns and extended clinic hours on Mondays and Wednesdays, and Walk-In Urgent Care Located in [facility]. Patient provided with after-hours line for [facility], , which offer night time triage service and option to transfer to employment instructional associate provider if needed. Patient verbalizes understanding, and able to repeat back to chief underwriter. documented in this encounter Plan of Treatment Not on file documented as of this encounter Visit Diagnoses Not on filedocumented in this encounter Care Teams Manager Of Training Relationship Specialty Start Date End Date El Garcia RN [address] [place] [phone] Registered Nurse Family Medicine 02/03/25 Michelle Montez 02/03/25 documented as of this encounter
--- OUTSIDE RECORDS SUMMARY | 2025-02-03 16:25 | XMS_ITS | Clinical Summary ---
Author Organization [address] [facility] Address [address] [place] [address] Phone Care Team Providers Care Commercial Loan Closer Name Role Phone Hardy Marquez MD Primary [...] age to complete this topic Insurance [address] [place] [id number] MEDICA[place] - [place] Care Teams Commercial Loan Closer Relationship Specialty Start Date End Date Hardy Marquez MD [address] [place] [address] PCP - General Internal Medicine 10/09/24
== END 2025-02-03 16:18 | disposition home or self-care (01) ==
LOC: HO.HWS 15:40
PROVIDERS: PCP Internal Medicine Geriatric Medicine; Visit Provider Obstetrics & Gynecology
DX: N93.9 Abnormal uterine and vaginal bleeding, unspecified (principal)
CPT/HCPCS: 99213